=== PATIENT | male | born 1975 | race Caucasian/White ===

== ENCOUNTER 2017-06-01 00:23 | Observation (INO) | payer OTHER ==
[~2017-06-01] VITALS: Ht 172.7 cm; Wt 109.7 kg
[~2017-06-01 00:23] MED LIST: ALBU90OI INH; AMLO5 PO; AMOCLA875 PO; AMOX500 PO; ASPI325 PO; ASPI81CH PO; ATOR40TA PO; Adult Low Dose81 MG PO; Amoxicillin500 MG PO; CEPH500 PO; CIPR500 PO; CLOP75 PO; CYCL10; CYCL10 PO; DIAZ5 PO; DULO60; DULO60 PO; ERYT.5TO BOTHEYES; ERYT.5TO LEFTEYE; ERYT1OIN BOTHEYES; HYDACE10B PO; HYDACE5; HYDACE5 PO; HYDCHL12.5 PO; HYDCHL25 PO; Hydrochloroth12.5 MG PO; IBUP400 PO; IBUP600 PO; IBUP800; IBUP800 PO; KETO10 PO; LISI20 PO; LISI5 PO; Lopressor 25 mg25 MG PO; METO25 PO; MICROZIDE12.5 MG PO; NAPR500 PO; NAPR550 PO; Norco 5-325 Ta1 EACH PO; ONDA4 PO; OXYACE5T PO; PENVK500 PO; PROCODE120 PO; PROM25 PO; Percocet 5-3251 EACH PO; Prinivil10 MG PO; RXCYCL10 PO; RXNAPNA550 PO; RXOXYACE PO; RXTRAM50 PO; SULTRIDS PO; TAMS.4ER PO; TRAM50 PO; Toprol Xl25 MG PO
[2017-06-01 00:45] LABS: BASOPHILS ABSOLUTE AUTO 0.15 K/mm3 (0.00-0.23); BASOPHILS PERCENT AUTO 1 % (0-2); EOSINOPHILS PERCENT AUTO 3 % (0-6); Hematocrit 48.2 % (37.0-53.0); Hemoglobin 16.4 g/dL (13.5-17.5); Mean Corpuscular HGB 28.2 pg (26.0-34.0); Mean Corpuscular Volume 83 fL (80-100); Mean Platelet Volume 9.7 fL (9.1-12.4); Platelet Count 342 K/mm3 (150-400); RDW Coefficient Variation 13.5 % (11.7-14.2); RDW Standard Deviation 40.4 fL (35.1-46.3); Red Blood Cell Count 5.81 M/mm3 (4.30-5.90); White Blood Cell Count 14.57 K/mm3 (4.00-11.30)
[2017-06-01 00:46] LABS: IMMATURE GRAN ABSOLUTE AUTO 0.16 K/mm3 (0.00-0.10); IMMATURE GRAN PERCENT AUTO 1 % (0-1); LYMPHOCYTES ABSOLUTE AUTO 5.41 K/mm3 (0.84-5.20); LYMPHOCYTES PERCENT AUTO 37 % (21-46); MONOCYTES ABSOLUTE AUTO 0.99 K/mm3 (0.16-1.47); MONOCYTES PERCENT AUTO 7 % (4-13); NEUTROPHILS ABSOLUTE AUTO 7.36 K/mm3 (1.96-9.15); NEUTROPHILS PERCENT AUTO 51 % (41-73)
[2017-06-01 01:00] LABS: Albumin, Blood 3.7 g/dL (3.4-5.0); Albumin/Globulin Ratio 0.7 (0.8-1.8); Bilirubin, Total 0.5 mg/dL (0.1-1.0); Bun/Creatinine Ratio 13.4 (12.0-20.0); Calcium, Blood 9.1 mg/dL (8.5-10.1); Creatinine, Blood 1.57 mg/dL (0.60-1.20); Potassium, Blood 3.8 mmol/L (3.5-5.5); Total Protein, Blood 8.7 g/dL (6.4-8.2); Troponin I 0.063 ng/mL (0.000-0.040)
[2017-06-01 01:20] LABS: International Normalized Ratio 0.98; Prothrombin Time Results 10.2 Sec (9.7-11.5)
[2017-06-01 08:38] LABS: U Amphetamine Screen DETECTED; U Barbituate Screen Not Detected; U Benzodiazapine Screen Not Detected; U Buprenorphine Screen Not Detected; U Cannabinoids Screen Not Detected; U Cocaine Screen Not Detected; U Methadone Screen Not Detected; U Methamphetamine Screen DETECTED; U Opiates Screen Not Detected; U Oxycodone Screen Not Detected; U Phencyclidine Screen Not Detected; U Propoxyphene Screen Not Detected
[2017-06-01 10:57] LABS: Troponin I 4.52 ng/mL (0.000-0.040)
[2017-06-01 17:11] LABS: Hematocrit 46.2 % (37.0-53.0); Hemoglobin 15.1 g/dL (13.5-17.5); Mean Corpuscular HGB 28.1 pg (26.0-34.0); Mean Corpuscular HGB Conc 32.7 g/dL (31.5-36.5); Mean Platelet Volume 9.8 fL (9.1-12.4); Platelet Count 263 K/mm3 (150-400); RDW Coefficient Variation 13.5 % (11.7-14.2); RDW Standard Deviation 41.8 fL (35.1-46.3); Red Blood Cell Count 5.37 M/mm3 (4.30-5.90); White Blood Cell Count 11.16 K/mm3 (4.00-11.30)
[2017-06-01 17:12] LABS: Mean Corpuscular Volume 86 fL (80-100)
[2017-06-01 17:36] LABS: Alanine Aminotransfer (ALT/SGP 30 U/L (12-78); Albumin/Globulin Ratio 0.7 (0.8-1.8); Alk Phos 84 U/L (50-136); Anion Gap 10 mmol/L (6-16); Aspartate Aminotrans (AST/SGOT 50 U/L (12-37); Bilirubin, Total 0.3 mg/dL (0.1-1.0); Blood Urea Nitrogen 19 mg/dL (8-24); Bun/Creatinine Ratio 19.3 (12.0-20.0); CO2, Blood 20 mmol/L (21-32); Calcium, Blood 8.7 mg/dL (8.5-10.1); Chloride, Blood 110 mmol/L (98-108); Creatinine, Blood 0.99 mg/dL (0.60-1.20); Globulin, Blood 4.2 g/dL (2.2-4.0); Glomerular Filtration Rate >60 (60-); Glucose, Blood 108 mg/dL (70-99); Potassium, Blood 4.3 mmol/L (3.5-5.5); Sodium, Blood 140 mmol/L (136-145); Total Protein, Blood 7.2 g/dL (6.4-8.2)
[2017-06-01 17:43] LABS: BASOPHILS ABSOLUTE MAN 0.11 K/mm3 (0.00-0.23); BASOPHILS PERCENT MAN 1 % (0-2); EOSINOPHILS ABSOLUTE MAN 0.44 K/mm3 (0.00-0.68); EOSINOPHILS PERCENT MAN 4 % (0-6); LYMPHOCYTES % ATYPICAL MANUAL 5 % (0-0); LYMPHOCYTES ABSOLUTE MAN 4.24 K/mm3 (0.84-5.20); LYMPHOCYTES PERCENT MAN 33 % (21-46); MONOCYTES ABSOLUTE MAN 0.22 K/mm3 (0.16-1.47); MONOCYTES PERCENT MAN 2 % (4-13); NEUTROPHILS ABSOLUTE MAN 6.13 K/mm3 (1.96-9.15); SEG NEUTROPHILS PERCENT MAN 55 % (41-73); TOTAL CELLS COUNTED 100
[2017-06-01 18:02] LABS: Troponin I 2.72 ng/mL (0.000-0.040)
[2017-06-02 05:12] LABS: Anion Gap 7 mmol/L (6-16); Blood Urea Nitrogen 17 mg/dL (8-24); Bun/Creatinine Ratio 19.4 (12.0-20.0); CO2, Blood 23 mmol/L (21-32); Calcium, Blood 8.1 mg/dL (8.5-10.1); Chloride, Blood 108 mmol/L (98-108); Creatinine, Blood 0.88 mg/dL (0.60-1.20); Glomerular Filtration Rate >60 (60-); Glucose, Blood 106 mg/dL (70-99); Potassium, Blood 4.3 mmol/L (3.5-5.5); Sodium, Blood 138 mmol/L (136-145)
[2017-06-02] MEDS ORDERED: HYDCHL25 PO (11:25)
== END 2017-06-02 12:00 | disposition home or self-care (01) ==
LOC: ER 00:23 → ICUW 00:24
PROVIDERS: Emergency Medicine; Internal Medicine
DX: I21.4 Non-ST elevation (NSTEMI) myocardial infarction (principal); I25.10 Atherosclerotic heart disease of native coronary artery without angina pectoris; I16.0 Hypertensive urgency; I11.9 Hypertensive heart disease without heart failure; I24.9 Acute ischemic heart disease, unspecified; F15.10 Other stimulant abuse, uncomplicated; F12.10 Cannabis abuse, uncomplicated; F17.210 Nicotine dependence, cigarettes, uncomplicated; I25.5 Ischemic cardiomyopathy; N17.9 Acute kidney failure, unspecified; Z79.02 Long term (current) use of antithrombotics/antiplatelets; Z79.82 Long term (current) use of aspirin; Z79.899 Other long term (current) drug therapy; Z82.49 Family history of ischemic heart disease and other diseases of the circulatory system; Z95.5 Presence of coronary angioplasty implant and graft
CPT/HCPCS: 36415; 71045; 80048; 80053; 82550; 83880; 84484; 85025; 85610; 85730; 87081; 93005; 93010; 93306; 96361; 96365; 96375; 96376; 99285; G0378; J1644; J3010; J7030; J7040

== ENCOUNTER 2018-06-29 06:55 | Emergency (ER) | payer OTHER ==
[~2018-06-29] VITALS: Ht 177.8 cm; Wt 108.9 kg
[2018-06-29] MEDS ORDERED: Tobrex5 ML BOTHEYES (07:39)
[2018-06-29] MEDS ORDERED: Percocet 10-321 EACH PO (07:39)
== END 2018-06-29 08:22 | disposition home or self-care (01) ==
LOC: ER 06:55
DX: H16.133 Photokeratitis, bilateral (principal); I10 Essential (primary) hypertension; Z91.19 Patient's noncompliance with other medical treatment and regimen; Z79.899 Other long term (current) drug therapy; Z79.82 Long term (current) use of aspirin; I25.2 Old myocardial infarction
CPT/HCPCS: 99283

== ENCOUNTER 2019-03-10 01:11 | Inpatient (IN) | payer OTHER ==
[~2019-03-10] VITALS: Ht 177.8 cm; Wt 110.6 kg
[~2019-03-10 01:11] MED LIST changes: +Percocet 10-321 EACH PO; +Tobrex5 ML BOTHEYES
[2019-03-10 01:45] LABS: Calcium, Ionized (POC) 1.11 mmol/L (1.10-1.46); Chloride (POC) 102 mmol/L (98-108); Creatinine (POC) 1.7 mg/dL (0.8-1.3); Glucose (ISTAT POC) 162 mg/dL (70-99); Hemoglobin (POC) 17.7 g/dL (13.5-17.5); Potassium (POC) 4.8 mmol/L (3.5-5.5); Sodium (POC) 138 mmol/L (135-148); Total CO2 (POC) 26 mmol/L (21-32)
[2019-03-10 01:46] LABS: Hematocrit 51.3 % (37.0-53.0); Mean Corpuscular HGB 28.1 pg (26.0-34.0); Mean Corpuscular HGB Conc 33.1 g/dL (31.5-36.5); Mean Corpuscular Volume 85 fL (80-100); Mean Platelet Volume 9.8 fL (9.1-12.4); Platelet Count 353 K/mm3 (150-400); RDW Coefficient Variation 13.8 % (11.7-14.2); RDW Standard Deviation 42.7 fL (35.1-46.3); Red Blood Cell Count 6.06 M/mm3 (4.30-5.90); White Blood Cell Count 16.72 K/mm3 (4.00-11.30)
[2019-03-10 02:06] LABS: Alanine Aminotransfer (ALT/SGP 34 U/L (12-78); Albumin, Blood 3.6 g/dL (3.4-5.0); Albumin/Globulin Ratio 0.8 (0.8-1.8); Alk Phos 86 U/L (50-136); Anion Gap 9 mmol/L (6-16); Aspartate Aminotrans (AST/SGOT 34 U/L (12-37); Bilirubin, Total 0.3 mg/dL (0.1-1.0); Blood Urea Nitrogen 22 mg/dL (8-24); CHOL/HDL RATIO 5.4; CO2, Blood 27 mmol/L (21-32); Calcium, Blood 9.2 mg/dL (8.5-10.1); Chloride, Blood 103 mmol/L (98-108); Cholesterol 185 mg/dL (50-200); Creatinine, Blood 1.69 mg/dL (0.60-1.20); Globulin, Blood 4.3 g/dL (2.2-4.0); Glomerular Filtration Rate 48 (60-); Glucose, Blood 155 mg/dL (70-99); HDL Cholesterol 34 mg/dL (>39); LDL/HDL RATIO 3.6; Low Density Lipoprotein Chol 121 mg/dL (0-110); Magnesium, Blood 2.2 mg/dL (1.6-2.4); Potassium, Blood 4.1 mmol/L (3.5-5.5); Sodium, Blood 139 mmol/L (136-145); Total Protein, Blood 7.9 g/dL (6.4-8.2); Triglycerides 148 mg/dL (30-160); Troponin I 0.101 ng/mL (0.000-0.040); Very Low Density Lipoprot Chol 29 mg/dL (6-32)
--- NOTE | 2019-03-10 05:34 | NUR ---
PT ADMITTED TO ROOM ICU 2 FROM [facility] [employer]. HAS RIGHT RADIAL ACCESS WITH TR BAND IN PLACE. PT ARRIVES AT 0415. DOES AWAKEN TO QUESTIONS BUT FALLS BACK ASLEEP EASILY. DENIES CHEST PAIN OR PRESSURE. DR POWERS COMES TO ROOM. EKG DONE AND SHOWN TO DR POWERS. ORDERS RECEIVED. PT'S FIANCE COMES TO ROOM. IS ABLE TO ASSIST SOME WITH THE ADMISSION PROCESS. PT DEMONSTRATES A SLEEP APNEA TYPE RESPIRATION WHEREAS HE DROPS SATURATIONS TO MID 80 %'S. PLACED O2 ON AT 2 L/M TO HELP PT MAINTAIN SATRUATIONS > 90 PERCENT. PT HAS BEEN SWEATY SINCE ADMIT WHICH HE SAYS IS NORMAL AT NIGHT FOR HIM. DID REQUEST AND GET A PERSONAL FAN. PT HAS BEEN VOIDING Q.S. WILL REVIEW CHART AND PLAN OF CARE FOR THIS PT.
--- NOTE | 2019-03-10 07:25 | NUR ---
2 CC DEFLATED FROM TR BAND, NO BLEEDING, HEMATOMA.
--- NOTE | 2019-03-10 07:30 | NUR ---
START OF SHIFT NOTE: RECEIVED REPORT FROM COLETTE RN, ASSUMED CARE, PATIENT IS DROWSY BUT AROUSEABLE, ALERT AND ORIENTED, LUNG SOUNDS DIMINISHED, SR, SBP'S SLIGHTLY LOW IN 90'S, DENIES CHEST PAIN/PRESSURE, REPORTS NO N/V, AFEBRILE, PATIENT ON NITRO GTT DECREASED FROM 40 TO 30 MCG AT THIS TIME, PER DR. POWERS KEEP MAP BETWEEN 70-100, RIGHT GROIN CENTRAL LINE, RIGHT RADIAL ACCESS SITE, TR BAND IN PLACE, 4 CC'S DEFLATED WITH 9 CC'S REMAINING, NO BLEEDING, HEMATOMA, BRUISING NOTED, PATIENT IS ASKING FOR FOOD, FIANCE AT BEDSIDE, CALL LIGHT IN REACH, WILL CONTINUE TO MONITOR.
--- NOTE | 2019-03-10 08:00 | NUR ---
2 CC DFLATED FROM TR BAND, NO BLEEDING, HEMATOMA, 7 CC OF AIR REMAINING.
--- NOTE | 2019-03-10 08:45 | NUR ---
2 CC DEFLATED FROM TR BAND, NO BLEEDIN, HEMATOMA, 5 CC REMAINING.
--- NOTE | 2019-03-10 08:55 | NUR ---
DR. OROURKE IN TO SEE PATIENT, C/O SLIGHTLY RASPY THROAT, TOOK AM PILLS WITHOUT ANY PROBLEM SWALLOWING, CONTINUES TO BE DROWSY, TR BAND DEFLATED WITH 5 CC'S REMAINING, FAMILY AT BEDSIDE, CALL LIGHT IN REACH, WILL CONTINUE TO MONITOR.
--- NOTE | 2019-03-10 09:20 | NUR ---
IMAGING IN ROOM TO DO ORDERED ECHO, FAMILY AT BEDSIDE, PATIENT DOZING DURING PROCEDURE, CALL LIGHT IN REACH, WILL CONTINUE TO MONITOR.
--- NOTE | 2019-03-10 09:30 | NUR ---
CALLED DR. POWERS AND NOTIFIED ABOUT DRITICAL LAB VALUE, ALSO PROVIDED UPDATE ON PATIENT CONDITION, NO NEW ORDERS RECEIVED.
--- NOTE | 2019-03-10 09:45 | NUR ---
CC DEFLATE FROM TR BAND, 2 CC'S AIR REMAINING, NO BLEEDING, HEMATOMA.
--- NOTE | 2019-03-10 10:16 | NUR ---
TR BAND COMPLETELY DEFLATED, WILL LEAVE IN PLACE FOR ONE HOUR AN THEN REMOVE, NO BLEEDING OR HEMATOMA NOTED.
--- NOTE | 2019-03-10 11:21 | NUR ---
TR BAND REMOVED, NO BLEEDING, HEMATOMA, TENDERNESS NOTED, ARMBOARD IN PLACE, PATIENT CONTINUES TO DOZE ON AND OFF, FINACE AT BEDSIDE, CALL LIGHT IN REACH, WILL CONTINUE TO MONITOR.
--- NOTE | 2019-03-10 12:06 | NUR ---
RIGHT RADIAL ACCESS SITE COVERED WITH OPSITE, NO BLEEDING, HEMATOMA NOTED, NO TENDERNESS ON PALPATION, FIANCE AT BEDSIDE, CALL LIGHT IN REACH, WILL CONTINUE TO MONITOR.
--- NOTE | 2019-03-10 14:40 | NUR ---
CALLED DR. POWERS, PATIENT C/O CHEST PAIN/PRESSURE 08/09 " IF SOMEONE IS SITTING ON MY CHEST", ORDERED EKG AND INCREASED NITRO GTT UP TO 40 MCG.
--- NOTE | 2019-03-10 15:13 | NUR ---
DR. POWERS CALLED WITH RESULTS OF EKG, NORMAL SINUS RHYTHM, NO NEW ORDERS RECEIVED, DR. POWERS WILL STOP BY AFTER CLINIC, MAY START PATIENT ON BETA INGE THIS EVENING.
--- NOTE | 2019-03-10 16:53 | NUR ---
DR. POWERS IN TO SEE PATIENT, NEW ORDERS RECEIVED.
--- NOTE | 2019-03-10 17:55 | NUR ---
SHIFT SUMMARY NOTE: PATIENT CONTINUES ON NITRO DRIP AT NOW AT 40 MCG, ALSO WAS STARTED ON HEPARIN GTT AT 13 UNITS PER PHARMACY, WITH 6000 UNITS OF BOLUS, PATIENT C/O ON AND OFF THROUGHOUT THE DAY OF CHEST PAIN/PRESSURE, REPEAT EKG DONE, LOOKS BETTER, DR. POWERS AWARE, RIGHT RADIAL ACCESS SITE WITH OPSITE, NO BLEEDING, HEMATOMA, TENDERNESS, ARMBOARD IN PLACE, PATIENT IS MORE ALERT, ON 2L NC BUT NOT COMPLIANT WITH IT, REMOVES NASAL CANNULA WHEN PLACED IN NOSTRILS, LUNG SOUNDS DIMINISHED, SR/ST WITH BP'S IN LOW 100'S, RECEIVED TYLENOL 650 MG FOR HEADACHE D/T NITRO, USES URINAL, VOIDED ONCE ON THIS SHIFT ABOUT 475 CC'S, CENTRAL LINE IN RIGHT GROIN, VERY POSITIONAL FOR LAB DRAWS, PATIENT ATE SOME OF FHIS MEALS, C/O A SWOLLEN THROAT EARLIER THIS AM BUT WAS ABLE TO SWALLOW HIS PILLS WITHOUT ANY PROBLEMS, WELL HIS FOOD, ECHO WAS DONE THIS AM AND DR. POWERS NOTIFIED PATIENT AND FAMILY ABOUT RESULTS, FOR DETAILS SEE SHIFT ASSESSMENT DOCUMENTATION AND NURSES NOTES, CALL LIGHT IN REACH, WILL CONTINUE TO MONITOR AND GIVE REPORT TO ONCOMING NITROGLYCERIN DISTRIBUTOR.
--- NOTE | 2019-03-10 18:25 | NUR ---
Pt's fiance, Lena, called me into room. She and I met on previous hospitalizations. Samuel was restless in bed. Lena admits , "he's been using meth." She is also quite fearful for him. Lena is very appreciaitve of emotional support and prayer. I provided these and assurance of excellent care and attention by clinicians and nursing staff. Encouraged self-care. Pt has "insisted" she say at bedisde, but she is clearly physicall/emotionally exhausted. Advised she must care for herself while we take care of Samuel. She may go home tonight. Bar Host/Hostess services will remain available.
[2019-03-10 19:21] LABS: International Normalized Ratio 3.18; Prothrombin Time Results 31.9 Sec (9.7-11.5)
--- NOTE | 2019-03-10 20:16 | NUR ---
ASSUMED CARE: AT APPROX 1900 AFTER REPORT FROM NIKO SANDY. PATIENT RESTING COMFORTABLY WITH FAMILY AT BEDSIDE. PATIENT HEPARIN DRIP VERIFIED WITH NIKO RN, RUNNING AT 13U/KG/HR WITH 88KG BASE WEIGHT PER PHARMACY. NITOR DRIP VERIFIED WITH NIKO RN, RUNNING AT 40MCG/MIN WITH A MAP OF 89. VSS, PATIENT STABLE ON RA AT 96%. RIGHT RADIAL SITE RECOVERED AT APPROX 1130 03/10/2019 PER NIKO SANDY; SITE IS C/D/I WITH NO SIGN OF BLEEDING, HEMATOMA OR INFECTION. ALL SENSATIONS INTACT, CAPILLARY REFILL <3 SECOUNDS AND MOVEMENT/STRENGTH INTACT AND ARMBOARD IN PLACE. RIGHT GROIN SITE FOR CENTRAL LINE HAS SOME OLD CRUSTED BLOOD WITH A SCANT AMOUNT OF FRESH BLOOD AT INSERTION SITE. OCCLUSIVE DRESSING INTACT. NO SIGN OF HEMATOMA OR INFECTION NOTED. ALL SENSATIONS INTACT/BASELINE WITH DISTAL CAPILLARY REFILL <3 SECOUNDS, PLAN IS TO CHANGE CENTRAL LINE DRESSING EARLY THIS SHIFT.
--- NOTE | 2019-03-10 20:35 | NUR ---
CLARIFIED NITRO DRIP PERAMETERS AND BETA INGE ORDERS WITH DR POWERS, NURSE NOTIFY ORDERED AND PLACED
[2019-03-11 03:33] LABS: Hematocrit 42.8 % (37.0-53.0); Hemoglobin 14.1 g/dL (13.5-17.5); Mean Corpuscular HGB Conc 32.9 g/dL (31.5-36.5); Mean Corpuscular Volume 85 fL (80-100); Mean Platelet Volume 9.9 fL (9.1-12.4); Platelet Count 288 K/mm3 (150-400); RDW Standard Deviation 43.2 fL (35.1-46.3); Red Blood Cell Count 5.04 M/mm3 (4.30-5.90); White Blood Cell Count 15.11 K/mm3 (4.00-11.30)
--- NOTE | 2019-03-11 03:40 | NUR ---
SHIFT SUMMARY: PATIENT VSS THIS SHIFT, MAP RANGING BETWEEN 79 AND 100. PATIENT C/O BASELINE BILATERAL HAND PAIN RADIATING TO ELBOWS, PATIENT STATES HE HAS CARPEL TUNNEL IN BOTH WRISTS. WARM BLANKETS HELPED PAIN. PATIENT CENTRAL LINE DRESSING CHANGED, SITE CLEANED USING STERILE PROCEEDURE, SEE CATHETER MANAGEMENT FOR DETAILS. RIGHT RADIAL SITE REMAINED C/D/I AND INTACT ALL SHIFT, PATIENT COMPLIANT WITH USING THE ARMBOARD. PATIENT ABLE TO GET TO BSC WITH AT LEAST ONE PERSON ASSIST, NO LIGHTHEADED SENSATIONS OR INCREASED WEAKNESS WITH MOVEMENT. NO OTHER ISSUES NOTED, CALL LIGHT WITHIN REACH AND USED APPROPRIATLY, BED LOW AND LOCKED, FAMILY AT BEDSIDE ALL SHIFT.
[2019-03-11 04:02] LABS: Anion Gap 7 mmol/L (6-16); Blood Urea Nitrogen 21 mg/dL (8-24); Bun/Creatinine Ratio 17.1 (12.0-20.0); CO2, Blood 28 mmol/L (21-32); Calcium, Blood 8.8 mg/dL (8.5-10.1); Chloride, Blood 103 mmol/L (98-108); Creatinine, Blood 1.23 mg/dL (0.60-1.20); Glomerular Filtration Rate >60 (60-); Glucose, Blood 115 mg/dL (70-99); Potassium, Blood 3.9 mmol/L (3.5-5.5); Sodium, Blood 138 mmol/L (136-145)
--- NOTE | 2019-03-11 07:15 | NUR ---
BEGINNING OF SHIFT Assumed care at 0700. Bedside report received from Geovanna SANDY and Wes RN. Pt alert. Significant other at bedside. Pt on room air. Lungs clear on auscultation. Pt denies chest pain. Pt reports headache and pain to left wrist that he states is typical for him and he attributes it to "carpal tunnel". Pt on 40 mcg/min nitroglycerin. Denies chest pain. Pt on heparin per orders. Bed in lowest position. Call light in reach. Pt denies need at this time.
--- NOTE | 2019-03-11 08:43 | NUR ---
UPDATE Nitroglycerin drip currently at 25 mcg/min. Pt denies CP. MAP remains between 70 and 100. Will continue to reassess.
--- NOTE | 2019-03-11 09:45 | NUR ---
DR OROURKE IN TO SEE PATIENT Discussed pt's carpal tunnel pain. New orders received. Plan to update Dr Orourke after Dr Ortega rounds on patient.
--- NOTE | 2019-03-11 10:00 | NUR ---
DR POWERS IN TO SEE PT Plan of care discussed. Provider states heparin drip to be discontinued. Provider also states to continue titrating nitroglycerin down. Provider states that if pt does well, he may transfer to PCU later in the day.
--- NOTE | 2019-03-11 12:23 | NUR ---
CALL PLACED TO DR OROURKE Pt has apneic periods while sleeping, lasting 10-15 seconds. SpO2 does not drop below 90%. Mild heart rate varibility noted. Pt then hyperventilates for 5-7 seconds. Pt's s/o vebalized concern about pt's breathing pattern. Education provided. Pt's s/o anxious and not receptive to education. She also states that pt's heart "flatlined". Educated about HR variability. No events on heart monitor this shift. Pt's s/o states pt is short of breath while awake. This RN awakens pt to assess. Pt states he feels short of breath laying down but does not feel short of breath when he is up and moving around. This RN elevates pt's HOB. Lungs auscultated, clear t/o. Will continue to reassess. Call placed to Dr Orourke to update. Provider stated importance of pt following up with pt's primary care provider.
--- NOTE | 2019-03-11 13:39 | NUR ---
UPDATE Pt states he is feeling short of breath and diaphoretic. On assessment pt, is diaphoretic. He denies chest pain. Pt assisted up to chair. Pt states that while moving around and sitting up in chair, he is no longer short of breath. Pt states he would like to take a shower.
--- NOTE | 2019-03-11 14:37 | NUR ---
CALL PLACED TO DR POWERS Updated provider that pt is off nitroglycerin drip. Discussed BPs. Discussed pt's dyspnea. New orders given. Pt is PCU status.
--- NOTE | 2019-03-11 18:09 | NUR ---
SUMMARY Pt has been off nitroglycerin drip since noon. VSS. Pt has been OOB several times this shift to use toilet and sit in chair. Pt has shortness of breath while laying in bed but not with activity. Pt reports shortness of breath has improved after administration of lasix. Pt has not had any chest pain this shift. Pt had headache that resolved with tylenol and cessation of nitroglycerin drip. Pt had pain to left wrist, which he attributes to carpal tunnel; as he has experienced this pain before. This was resolved after BP cuff was moved to right arm and analgesic cream was applied to left wrist. Will continue to closely monitor until care handoff and bedside report with oncoming RN.
--- NOTE | 2019-03-11 19:32 | NUR ---
BEDSIDE REPORT GIVEN TO SONIDO SANDY
--- NOTE | 2019-03-11 20:14 | NUR ---
SHIFT SUMMARY REPORT CALLED TO DU HERNANDEZ IN PCU. PATIENT TRANSFERRED VIA HOSPITAL BED TO PCU-5.
--- NOTE | 2019-03-11 23:26 | NUR ---
PT UPDATE CAN REPORTS TO RN THAT PT IS NAUSEOUS. RN TO ROOM TO EVELUATE PT. PT APPEARS TO BE SLEEPING. PT WAKES TO VEBRAL AFTER 3 ATTEMPTS TO WAKE PT. VITALS TAKEN, WNL. THIS RN ASKED PT IF HE WOULD LIEK TO WEAR SOEM OXYGEN WHILE SLEEPING D/T WHITNESSED SHORT APNIC PERIODS. PT REFUSED. PT ALSO ASKED IF HE WANTED SOMETHING FOR NAUSEA. PT ALSO REFUSED TO ANSWER. PT ASKED AGAIN, PT REFUSED TO ANSWER. PT EDUCATED THAT HE COULD USE CALL LIGHT TO REQUEST MEDICATIONS FOR NAUSEA SHOULD HE CHANGE HIS MIND. PT NOT IN ROOM AT THSI TIME.
[2019-03-12 04:03] LABS: BASOPHILS ABSOLUTE AUTO 0.14 K/mm3 (0.00-0.23); BASOPHILS PERCENT AUTO 1 % (0-2); EOSINOPHILS ABSOLUTE AUTO 0.46 K/mm3 (0.00-0.68); EOSINOPHILS PERCENT AUTO 4 % (0-6); Hemoglobin 14.8 g/dL (13.5-17.5); IMMATURE GRAN ABSOLUTE AUTO 0.35 K/mm3 (0.00-0.10); IMMATURE GRAN PERCENT AUTO 3 % (0-1); LYMPHOCYTES ABSOLUTE AUTO 3.24 K/mm3 (0.84-5.20); LYMPHOCYTES PERCENT AUTO 26 % (21-46); MONOCYTES ABSOLUTE AUTO 0.92 K/mm3 (0.16-1.47); MONOCYTES PERCENT AUTO 7 % (4-13); Mean Corpuscular HGB 27.9 pg (26.0-34.0); Mean Corpuscular HGB Conc 32.2 g/dL (31.5-36.5); Mean Corpuscular Volume 87 fL (80-100); Mean Platelet Volume 10.2 fL (9.1-12.4); NEUTROPHILS ABSOLUTE AUTO 7.47 K/mm3 (1.96-9.15); NEUTROPHILS PERCENT AUTO 59 % (41-73); Platelet Count 288 K/mm3 (150-400); RDW Coefficient Variation 14.2 % (11.7-14.2); RDW Standard Deviation 45.1 fL (35.1-46.3); White Blood Cell Count 12.58 K/mm3 (4.00-11.30)
[2019-03-12 04:20] LABS: Alanine Aminotransfer (ALT/SGP 72 U/L (12-78); Albumin, Blood 3.2 g/dL (3.4-5.0); Albumin/Globulin Ratio 0.7 (0.8-1.8); Alk Phos 82 U/L (50-136); Anion Gap 5 mmol/L (6-16); Aspartate Aminotrans (AST/SGOT 237 U/L (12-37); Bilirubin, Total 0.5 mg/dL (0.1-1.0); Blood Urea Nitrogen 17 mg/dL (8-24); Bun/Creatinine Ratio 13.8 (12.0-20.0); CO2, Blood 28 mmol/L (21-32); Calcium, Blood 9.1 mg/dL (8.5-10.1); Chloride, Blood 106 mmol/L (98-108); Creatinine, Blood 1.23 mg/dL (0.60-1.20); Globulin, Blood 4.4 g/dL (2.2-4.0); Glomerular Filtration Rate >60 (60-); Glucose, Blood 106 mg/dL (70-99); Magnesium, Blood 2.3 mg/dL (1.6-2.4); Potassium, Blood 4.1 mmol/L (3.5-5.5); Sodium, Blood 139 mmol/L (136-145); Total Protein, Blood 7.6 g/dL (6.4-8.2)
--- NOTE | 2019-03-12 05:28 | NUR ---
SHIFT SUMMARY PT SLEEPING IN ROOM COMFORTABLY AT THIS TIME W/ SPOUSE AT BEDSIDE. NO ACUTE CHANGES IN STATUS T/O NIGHT. PT DID AWAKEN SEVERAL TIMES DURING NIGHT GASPING FOR BREATH D/T APNIC MOMENTS. PT OFFERED NC WHILE SLEEPING TO ASSIST WITH BREATHING. PT REFUSED. PT ALSO REFUSED ANYTHIGN FOR NAUSEA EARLIER DURING SHIFT. BEDSIDE FAN PROVIDED. RESP EVEN UNLABORED AT REST WHILE AWAKE W/ SATS >92% ON RA. PT DENIES ANY CP. ANGIO ACCESS SITE TO RW WNL, NO HEMATOMA NOTED. CENTRAL LINE TO R GROIN REMAINS IN PLACE WNL. DENIES OTHER NEEDS. CALL LIGHT IN REACH. PT REFUSED BEDSIDE REPORT IN AM.
[2019-03-12] MEDS ORDERED: AMLO10 PO (09:58)
[2019-03-12] MEDS ORDERED: Aspirin EC81 MG PO (09:58)
[2019-03-12] MEDS ORDERED: LIPITOR80 MG PO (09:59)
[2019-03-12] MEDS ORDERED: FURO40 PO (09:59)
[2019-03-12] MEDS ORDERED: LISI5 PO (09:59)
[2019-03-12] MEDS ORDERED: METO25ER PO (10:00)
[2019-03-12] MEDS ORDERED: TICA90TA PO (10:01)
[2019-03-12] MEDS ORDERED: PANT20 PO (10:01)
--- NOTE | 2019-03-12 10:42 | NUR ---
PT AMBULATED TO BATHROOM WITH SLOW EVEN STEADY GAIT, NO ACTIVE BLEEDING NOTED FROM CENTRAL LINE SITE POST D/C. CHG TEGADERM REAMINS IN PLACE OVER CENTRAL LINE SITE
--- NOTE | 2019-03-12 11:55 | NUR ---
AFTER BEING SET UP FOR SHOWER PT IS NOW REFUSING TO SHWER OR GET DRESSED BEFPRE HIS S/O ARRIVES DESPITE EDUCATION THAT S/O IS ON HER AWAY AND EXPECTING HIM TO BE READY, PT REMAINS REFUSANT TO GET DRESSED
--- NOTE | 2019-03-12 12:25 | NUR ---
PT'S S/O IS THOROUGHLY EDUCATED ABOUT D/C INSTRUCTIONS AND POSSIBLE MEDICATION SIDE EFFECTS
--- NOTE | 2019-03-12 13:20 | NUR ---
PT AND S/O THOROOUGHLY EDUCATED ABOUT DC INSTRUCTIONS AND POSSIBLE SIDE EFFECTS OF NEW MEDICATIONS. SO AND PT EXPRESSED UNDERSTANDING OF DC TEACHING, DENY FURTHER NEEDS. PT WHEELED TO CAR BY THIS RN PT PROVIDED WITH ALL BELONGINGS AT TIME OF DISCHARGE
== END 2019-03-12 12:47 | disposition home or self-care (01) | DRG 247 ==
LOC: ER 01:11 → ICUE 01:36 → ICUW 01:36 → ICUE 02:14 → PCU 03-11 20:12
PROVIDERS: Emergency Medicine; Internal Medicine; ADMIT Internal Medicine Interventional Cardiology
PROC: 027034Z Dilation of Coronary Artery, One Artery with Drug-eluting Intraluminal Device, Percutaneous Approach (ICD-10-PCS; principal; 2019-03-10)
PROC: 4A023N7 Measurement of Cardiac Sampling and Pressure, Left Heart, Percutaneous Approach (ICD-10-PCS; 2019-03-10)
PROC: B2111ZZ Fluoroscopy of Multiple Coronary Arteries using Low Osmolar Contrast (ICD-10-PCS; 2019-03-10)
PROC: B240ZZ3 Ultrasonography of Single Coronary Artery, Intravascular (ICD-10-PCS; 2019-03-10)
PROC: 06HY33Z Insertion of Infusion Device into Lower Vein, Percutaneous Approach (ICD-10-PCS; 2019-03-10)
DX: I21.3 ST elevation (STEMI) myocardial infarction of unspecified site (principal); I16.1 Hypertensive emergency; I50.22 Chronic systolic (congestive) heart failure; N17.9 Acute kidney failure, unspecified; I25.10 Atherosclerotic heart disease of native coronary artery without angina pectoris; I25.2 Old myocardial infarction; F17.210 Nicotine dependence, cigarettes, uncomplicated; I25.5 Ischemic cardiomyopathy; I11.0 Hypertensive heart disease with heart failure; F15.120 Other stimulant abuse with intoxication, uncomplicated; Z79.82 Long term (current) use of aspirin
CPT/HCPCS: 36415; 36556; 76937; 80047; 80048; 80053; 80061; 83735; 83880; 84484; 85014; 85025; 85027; 85347; 85610; 85651; 85730; 92978; 93005; 93010; 93306; 93458; 96374; 96375; 99152; 99153; 99285-25; A9270; C1725; C1751; C1753; C1769; C1874; C1887; C1894; C9113; C9606; J1644; J1650; J1940; J2060; J2250; J2270; J3010; J7030; Q9967

== ENCOUNTER 2019-03-14 08:40 | Observation (INO) | payer OTHER ==
[~2019-03-14] VITALS: Ht 177.8 cm; Wt 108.9 kg
[~2019-03-14 08:40] MED LIST changes: +AMLO10 PO; +Aspirin EC81 MG PO; +FURO40 PO; +LIPITOR80 MG PO; +METO25ER PO; +PANT20 PO; +TICA90TA PO
[2019-03-14 09:15] LABS: BASOPHILS PERCENT AUTO 1 % (0-2); EOSINOPHILS ABSOLUTE AUTO 0.63 K/mm3 (0.00-0.68); EOSINOPHILS PERCENT AUTO 5 % (0-6); Hematocrit 44.7 % (37.0-53.0); Hemoglobin 14.7 g/dL (13.5-17.5); IMMATURE GRAN ABSOLUTE AUTO 0.24 K/mm3 (0.00-0.10); IMMATURE GRAN PERCENT AUTO 2 % (0-1); LYMPHOCYTES ABSOLUTE AUTO 3.67 K/mm3 (0.84-5.20); LYMPHOCYTES PERCENT AUTO 26 % (21-46); MONOCYTES ABSOLUTE AUTO 0.91 K/mm3 (0.16-1.47); MONOCYTES PERCENT AUTO 7 % (4-13); Mean Corpuscular HGB 28.1 pg (26.0-34.0); Mean Corpuscular HGB Conc 32.9 g/dL (31.5-36.5); Mean Corpuscular Volume 86 fL (80-100); Mean Platelet Volume 10.2 fL (9.1-12.4); NEUTROPHILS ABSOLUTE AUTO 8.36 K/mm3 (1.96-9.15); NEUTROPHILS PERCENT AUTO 60 % (41-73); Platelet Count 316 K/mm3 (150-400); RDW Coefficient Variation 13.7 % (11.7-14.2); RDW Standard Deviation 42.7 fL (35.1-46.3); Red Blood Cell Count 5.23 M/mm3 (4.30-5.90); White Blood Cell Count 13.91 K/mm3 (4.00-11.30)
[2019-03-14 09:32] LABS: Alanine Aminotransfer (ALT/SGP 89 U/L (12-78); Albumin, Blood 3.2 g/dL (3.4-5.0); Albumin/Globulin Ratio 0.8 (0.8-1.8); Alk Phos 82 U/L (50-136); Anion Gap 7 mmol/L (6-16); Aspartate Aminotrans (AST/SGOT 94 U/L (12-37); Bilirubin, Total 0.3 mg/dL (0.1-1.0); Blood Urea Nitrogen 15 mg/dL (8-24); Bun/Creatinine Ratio 15.6 (12.0-20.0); CO2, Blood 24 mmol/L (21-32); Calcium, Blood 8.8 mg/dL (8.5-10.1); Chloride, Blood 109 mmol/L (98-108); Creatinine, Blood 0.96 mg/dL (0.60-1.20); Globulin, Blood 4.2 g/dL (2.2-4.0); Glomerular Filtration Rate >60 (60-); Glucose, Blood 104 mg/dL (70-99); Potassium, Blood 4.5 mmol/L (3.5-5.5); Sodium, Blood 140 mmol/L (136-145); Total Protein, Blood 7.4 g/dL (6.4-8.2)
[2019-03-14] MEDS ORDERED: CLOP75 PO ×2 (12:09→12:38)
--- NOTE | 2019-03-14 13:03 | NUR ---
Echocardiogram completed.
--- NOTE | 2019-03-14 14:43 | NUR ---
PATIENT GAVE THIS STUDENT NURSE PERMISSION TO PROVIDE CARE ON MAR 15, 2019 IN THE AFTERNOON.
[2019-03-15 02:36] LABS: Source, Urine Clean Catch
[2019-03-15 02:39] LABS: Appearance, Urine Clear (Clear); Bilirubin, Urine Neg (Neg); Blood, Urine Neg (Neg); Color, Urine Yellow (P-Yellow); Glucose Qualitative, Urine Neg (Neg); Ketones, Urine Neg (Neg); Leukocyte Esterase, Urine Neg (Neg); Nitrite, Urine Neg (Neg); Protein, Urine Neg (Neg); Specific Gravity, Urine 1.025 (1.003-1.022); Urobilinogen, Urine NORM (Normal)
[2019-03-15 02:50] LABS: U Amphetamine Screen DETECTED; U Barbituate Screen Not Detected; U Benzodiazapine Screen DETECTED; U Buprenorphine Screen Not Detected; U Cannabinoids Screen Not Detected; U Cocaine Screen Not Detected; U Methadone Screen Not Detected; U Methamphetamine Screen Not Detected; U Opiates Screen Not Detected; U Oxycodone Screen Not Detected; U Phencyclidine Screen Not Detected; U Propoxyphene Screen Not Detected
[2019-03-15 04:59] LABS: BASOPHILS ABSOLUTE AUTO 0.11 K/mm3 (0.00-0.23); BASOPHILS PERCENT AUTO 1 % (0-2); EOSINOPHILS ABSOLUTE AUTO 0.58 K/mm3 (0.00-0.68); EOSINOPHILS PERCENT AUTO 4 % (0-6); Hematocrit 44.8 % (37.0-53.0); Hemoglobin 14.7 g/dL (13.5-17.5); IMMATURE GRAN ABSOLUTE AUTO 0.17 K/mm3 (0.00-0.10); IMMATURE GRAN PERCENT AUTO 1 % (0-1); LYMPHOCYTES ABSOLUTE AUTO 3.59 K/mm3 (0.84-5.20); LYMPHOCYTES PERCENT AUTO 27 % (21-46); MONOCYTES ABSOLUTE AUTO 1.23 K/mm3 (0.16-1.47); MONOCYTES PERCENT AUTO 9 % (4-13); Mean Corpuscular HGB 28.1 pg (26.0-34.0); Mean Corpuscular HGB Conc 32.8 g/dL (31.5-36.5); Mean Corpuscular Volume 86 fL (80-100); Mean Platelet Volume 10.5 fL (9.1-12.4); NEUTROPHILS ABSOLUTE AUTO 7.51 K/mm3 (1.96-9.15); NEUTROPHILS PERCENT AUTO 57 % (41-73); Platelet Count 319 K/mm3 (150-400); RDW Coefficient Variation 13.5 % (11.7-14.2); RDW Standard Deviation 42.1 fL (35.1-46.3); Red Blood Cell Count 5.24 M/mm3 (4.30-5.90); White Blood Cell Count 13.19 K/mm3 (4.00-11.30)
--- NOTE | 2019-03-15 05:18 | NUR ---
SHIFT SUMMARY: A/OX4. RESPONDING QUICKLY AND APPROPRIATELY TO VERBAL STIMILI. REPORTING SOME ANXIETY OVERNIGHT. GF IN ROOM WITH PT THROUGH THE NIGHT. STATES HE CAN WAIT UNTIL MORNING ATARAX AND HAS BEEN SLEEPING INTERMITTENTLY. PT DENIES PAIN. DENIES CHEST PAIN AND SOB. HAS BEEN UP INDEPENDENTLY IN ROOM. BED LOW, CALL BUTTON IN REACH.
[2019-03-15 05:35] LABS: Alanine Aminotransfer (ALT/SGP 75 U/L (12-78); Albumin, Blood 3.1 g/dL (3.4-5.0); Albumin/Globulin Ratio 0.7 (0.8-1.8); Alk Phos 84 U/L (50-136); Anion Gap 8 mmol/L (6-16); Aspartate Aminotrans (AST/SGOT 62 U/L (12-37); Bilirubin, Total 0.3 mg/dL (0.1-1.0); Blood Urea Nitrogen 18 mg/dL (8-24); Bun/Creatinine Ratio 16.1 (12.0-20.0); CO2, Blood 24 mmol/L (21-32); Calcium, Blood 9.1 mg/dL (8.5-10.1); Chloride, Blood 106 mmol/L (98-108); Creatinine, Blood 1.12 mg/dL (0.60-1.20); Globulin, Blood 4.3 g/dL (2.2-4.0); Glomerular Filtration Rate >60 (60-); Glucose, Blood 98 mg/dL (70-99); Potassium, Blood 4.2 mmol/L (3.5-5.5); Sodium, Blood 138 mmol/L (136-145); Total Protein, Blood 7.4 g/dL (6.4-8.2)
[2019-03-15] MEDS ORDERED: HYDHCL25 PO (14:38)
--- NOTE | 2019-03-15 15:04 | NUR ---
SUMMARY PT DISCHARGED TO HOME WITH SIGNIFICANT OTHER, PT VERBALIZED UNDERSTANDING OF DISCHARGE INSTRUCTIONS REGARDING FOLLOW UP AND MEDICATIONS, PT TAKEN OUT SAFELY VIA WHEELCHAIR WITH STAFF
== END 2019-03-15 14:47 | disposition home or self-care (01) ==
LOC: ER 08:40 → MEDS 08:41
PROVIDERS: Physician Assistant; ADMIT Internal Medicine
DX: F41.9 Anxiety disorder, unspecified (principal); R06.02 Shortness of breath; R06.00 Dyspnea, unspecified; I21.3 ST elevation (STEMI) myocardial infarction of unspecified site; F41.0 Panic disorder [episodic paroxysmal anxiety]; F15.10 Other stimulant abuse, uncomplicated; I11.0 Hypertensive heart disease with heart failure; I50.22 Chronic systolic (congestive) heart failure; I25.10 Atherosclerotic heart disease of native coronary artery without angina pectoris; G47.33 Obstructive sleep apnea (adult) (pediatric); R79.89 Other specified abnormal findings of blood chemistry; Z95.5 Presence of coronary angioplasty implant and graft; Z87.891 Personal history of nicotine dependence; Z79.82 Long term (current) use of aspirin; Z79.02 Long term (current) use of antithrombotics/antiplatelets; Z79.899 Other long term (current) drug therapy
CPT/HCPCS: 36415; 71046; 80053; 81003; 83880; 84484; 85025; 93005; 93010; 93308; 96372; 96374; 96375; 99285-25; C9113; G0378; J1650; J1940; J2060

== ENCOUNTER 2020-05-09 04:16 | Emergency (ER) | payer OTHER ==
[~2020-05-09 04:16] MED LIST changes: +HYDHCL25 PO
[2020-05-09] MEDS ORDERED: Floxin10 ML LEFTEYE (08:06)
== END 2020-05-09 08:22 | disposition home or self-care (01) ==
LOC: ER 04:16
DX: T15.92XA Foreign body on external eye, part unspecified, left eye, initial encounter (principal); Z79.82 Long term (current) use of aspirin; Z79.899 Other long term (current) drug therapy; Z79.02 Long term (current) use of antithrombotics/antiplatelets; W45.8XXA Other foreign body or object entering through skin, initial encounter
CPT/HCPCS: 65222; 70480; 90471; 99283-25; A9270

== ENCOUNTER 2020-07-05 05:48 | Emergency (ER) | payer OTHER ==
[~2020-07-05] VITALS: Ht 177.8 cm; Wt 108.9 kg
[~2020-07-05 05:48] MED LIST changes: +Floxin10 ML LEFTEYE
[2020-07-05 06:10] LABS: Calcium, Ionized (POC) 1.06 mmol/L (1.10-1.46); Chloride (POC) 107 mmol/L (98-108); Creatinine (POC) 1.8 mg/dL (0.8-1.3); Glucose (ISTAT POC) 117 mg/dL (70-99); Hemoglobin (POC) 14.6 g/dL (13.5-17.5); Potassium (POC) 3.5 mmol/L (3.5-5.5); Sodium (POC) 141 mmol/L (135-148); Total CO2 (POC) 24 mmol/L (21-32)
[2020-07-05 06:26] LABS: BASOPHILS ABSOLUTE AUTO 0.11 K/mm3 (0.00-0.23); BASOPHILS PERCENT AUTO 1 % (0-2); EOSINOPHILS ABSOLUTE AUTO 0.49 K/mm3 (0.00-0.68); EOSINOPHILS PERCENT AUTO 5 % (0-6); Hematocrit 45.5 % (37.0-53.0); Hemoglobin 15.5 g/dL (13.5-17.5); Mean Corpuscular HGB Conc 34.1 g/dL (31.5-36.5); Mean Corpuscular Volume 88 fL (80-100); Mean Platelet Volume 9.6 fL (9.1-12.4); Platelet Count 291 K/mm3 (150-400); RDW Coefficient Variation 13.3 % (11.7-14.2); RDW Standard Deviation 43.4 fL (35.1-46.3); Red Blood Cell Count 5.17 M/mm3 (4.30-5.90); White Blood Cell Count 10.63 K/mm3 (4.00-11.30)
[2020-07-05 06:28] LABS: IMMATURE GRAN ABSOLUTE AUTO 0.11 K/mm3 (0.00-0.10); IMMATURE GRAN PERCENT AUTO 1 % (0-1); LYMPHOCYTES ABSOLUTE AUTO 4.29 K/mm3 (0.84-5.20); LYMPHOCYTES PERCENT AUTO 40 % (21-46); MONOCYTES ABSOLUTE AUTO 1.29 K/mm3 (0.16-1.47); MONOCYTES PERCENT AUTO 12 % (4-13); NEUTROPHILS ABSOLUTE AUTO 4.34 K/mm3 (1.96-9.15); NEUTROPHILS PERCENT AUTO 41 % (41-73)
[2020-07-05 06:32] LABS: Albumin, Blood 3.3 g/dL (3.4-5.0); Albumin/Globulin Ratio 0.9 (0.8-1.8); Bilirubin, Total 0.4 mg/dL (0.1-1.0); Bun/Creatinine Ratio 12.7 (12.0-20.0); Calcium, Blood 8.3 mg/dL (8.5-10.1); Creatinine, Blood 1.66 mg/dL (0.60-1.20); Globulin, Blood 3.8 g/dL (2.2-4.0); Potassium, Blood 3.6 mmol/L (3.5-5.5); Total Protein, Blood 7.1 g/dL (6.4-8.2); Troponin I 0.033 ng/mL (0.000-0.040)
[2020-07-05 06:56] LABS: International Normalized Ratio 0.95; Prothrombin Time Results 10.3 Sec (9.7-11.5)
== END 2020-07-05 07:30 | disposition short-term general hospital (02) ==
LOC: ER 05:48
PROVIDERS: Emergency Medicine
DX: I65.21 Occlusion and stenosis of right carotid artery (principal); I25.10 Atherosclerotic heart disease of native coronary artery without angina pectoris; I10 Essential (primary) hypertension; I25.2 Old myocardial infarction; F17.210 Nicotine dependence, cigarettes, uncomplicated; Z79.82 Long term (current) use of aspirin; Z79.02 Long term (current) use of antithrombotics/antiplatelets; Z79.899 Other long term (current) drug therapy
CPT/HCPCS: 37195; 70450; 70496; 70498; 80047; 80053; 82947; 84484; 85014; 85025; 85610; 85730; 93005; 93010; 99285-25; J2997; J7050; Q3014; Q9967

== ENCOUNTER 2020-07-08 19:57 | Emergency (ER) | payer OTHER ==
[~2020-07-08] VITALS: Ht 177.8 cm; Wt 108.9 kg
== END 2020-07-08 21:06 | disposition home or self-care (01) ==
LOC: ER 19:57
DX: F41.1 Generalized anxiety disorder (principal); F43.0 Acute stress reaction; I10 Essential (primary) hypertension; Z79.82 Long term (current) use of aspirin; Z79.899 Other long term (current) drug therapy
CPT/HCPCS: 99283; A9270

== ENCOUNTER 2020-07-09 14:01 | Emergency (ER) | payer OTHER ==
[2020-07-10] MEDS ORDERED: Ativan1 MG PO (00:34)
== END 2020-07-10 15:00 | disposition left against medical advice (07) ==
LOC: ER 14:01
DX: Z53.21 Procedure and treatment not carried out due to patient leaving prior to being seen by health care provider (principal)

== ENCOUNTER 2020-07-10 | Emergency (ER) | payer OTHER ==
[~2020-07-10] VITALS: Ht 177.8 cm; Wt 108.9 kg
[2020-07-10] MEDS ORDERED: Ativan1 MG PO (00:34)
== END 2020-07-10 00:47 | disposition home or self-care (01) ==
LOC: ER
DX: F41.9 Anxiety disorder, unspecified (principal); F17.210 Nicotine dependence, cigarettes, uncomplicated; Z79.02 Long term (current) use of antithrombotics/antiplatelets; Z79.899 Other long term (current) drug therapy
CPT/HCPCS: 99283

== ENCOUNTER 2020-07-18 18:06 | Emergency (ER) | payer OTHER ==
[~2020-07-18] VITALS: Ht 177.8 cm; Wt 99.8 kg
[~2020-07-18 18:06] MED LIST changes: +Ativan1 MG PO
== END 2020-07-18 19:36 | disposition left against medical advice (07) ==
LOC: ER 18:06
DX: R55 Syncope and collapse (principal); Z53.21 Procedure and treatment not carried out due to patient leaving prior to being seen by health care provider
CPT/HCPCS: 99283

== ENCOUNTER 2021-01-18 02:17 | Emergency (ER) | payer OTHER ==
[~2021-01-18] VITALS: Ht 170.2 cm; Wt 113.4 kg
[2021-01-21] MEDS ORDERED: AZIT250 PO (12:54)
[2021-01-21] MEDS ORDERED: IBUP400 PO (12:54)
[2021-01-21] MEDS ORDERED: ACET500 PO (12:54)
[2021-01-21] MEDS ORDERED: ONDA4ODT MM (12:54)
== END 2021-01-18 20:03 | disposition home or self-care (01) ==
LOC: ER 02:17
DX: F10.10 Alcohol abuse, uncomplicated (principal); I11.0 Hypertensive heart disease with heart failure; I25.10 Atherosclerotic heart disease of native coronary artery without angina pectoris; I25.2 Old myocardial infarction; Z86.73 Personal history of transient ischemic attack (TIA), and cerebral infarction without residual deficits; F17.210 Nicotine dependence, cigarettes, uncomplicated; Z79.82 Long term (current) use of aspirin; Z79.899 Other long term (current) drug therapy; I50.20 Unspecified systolic (congestive) heart failure
CPT/HCPCS: 99282; Q3014

== ENCOUNTER 2021-03-12 01:20 | Observation (INO) | payer OTHER ==
[~2021-03-12] VITALS: Ht 175.3 cm; Wt 90.7 kg
[~2021-03-12 01:20] MED LIST changes: +ACET500 PO; +AZIT250 PO; +ONDA4ODT MM
[2021-03-12] MEDS ORDERED: Lisinopril2.5 MG (01:28)
[2021-03-12] MEDS ORDERED: METO25ER (01:28)
[2021-03-12 01:39] LABS: BASOPHILS ABSOLUTE AUTO 0.07 K/mm3 (0.00-0.23); BASOPHILS PERCENT AUTO 1 % (0-2); EOSINOPHILS ABSOLUTE AUTO 0.37 K/mm3 (0.00-0.68); EOSINOPHILS PERCENT AUTO 4 % (0-6); Hematocrit 50.3 % (37.0-53.0); Hemoglobin 17.3 g/dL (13.5-17.5); IMMATURE GRAN ABSOLUTE AUTO 0.07 K/mm3 (0.00-0.10); IMMATURE GRAN PERCENT AUTO 1 % (0-1); LYMPHOCYTES ABSOLUTE AUTO 3.85 K/mm3 (0.84-5.20); LYMPHOCYTES PERCENT AUTO 41 % (21-46); MONOCYTES ABSOLUTE AUTO 0.88 K/mm3 (0.16-1.47); MONOCYTES PERCENT AUTO 9 % (4-13); Mean Corpuscular HGB Conc 34.4 g/dL (31.5-36.5); Mean Corpuscular Volume 87 fL (80-100); NEUTROPHILS ABSOLUTE AUTO 4.12 K/mm3 (1.96-9.15); NEUTROPHILS PERCENT AUTO 44 % (41-73); Platelet Count 304 K/mm3 (150-400); RDW Coefficient Variation 13.4 % (11.7-14.2); RDW Standard Deviation 43.1 fL (35.1-46.3); Red Blood Cell Count 5.76 M/mm3 (4.30-5.90); White Blood Cell Count 9.36 K/mm3 (4.00-11.30)
[2021-03-12 02:04] LABS: International Normalized Ratio 1.02; Prothrombin Time Results 10.7 Sec (9.7-11.5)
[2021-03-12 02:12] LABS: Alanine Aminotransfer (ALT/SGP 30 U/L (12-78); Albumin, Blood 3.5 g/dL (3.4-5.0); Albumin/Globulin Ratio 0.8 (0.8-1.8); Alk Phos 89 U/L (50-136); Anion Gap 10 mmol/L (6-16); Aspartate Aminotrans (AST/SGOT 28 U/L (12-37); Bilirubin, Total 0.5 mg/dL (0.1-1.0); Blood Urea Nitrogen 10 mg/dL (8-24); Bun/Creatinine Ratio 10.1 (12.0-20.0); CO2, Blood 22 mmol/L (21-32); Calcium, Blood 8.7 mg/dL (8.5-10.1); Chloride, Blood 108 mmol/L (98-108); Creatinine, Blood 0.99 mg/dL (0.60-1.20); Ethanol (Alcohol), Blood, Med 298 mg/dL; Globulin, Blood 4.5 g/dL (2.2-4.0); Glomerular Filtration Rate >60 (60-); Glucose, Blood 98 mg/dL (70-99); Sodium, Blood 140 mmol/L (136-145)
[2021-03-12 05:48] LABS: Influenza A, PCR NEGATIVE (NEGATIVE); Influenza B, PCR NEGATIVE (NEGATIVE); Resp Syncytial Virus, PCR NEGATIVE (NEGATIVE); SARS-Cov-2 (COVID-19) PCR, MMC NEGATIVE (NEGATIVE)
[2021-03-12 05:56] LABS: U Amphetamine Screen Not Detected; U Barbituate Screen Not Detected; U Benzodiazapine Screen Not Detected; U Buprenorphine Screen Not Detected; U Cannabinoids Screen DETECTED; U Cocaine Screen Not Detected; U Methadone Screen Not Detected; U Methamphetamine Screen Not Detected; U Opiates Screen Not Detected; U Oxycodone Screen Not Detected; U Phencyclidine Screen Not Detected; U Propoxyphene Screen Not Detected
[2021-03-12 06:04] LABS: BASOPHILS ABSOLUTE AUTO 0.06 K/mm3 (0.00-0.23); BASOPHILS PERCENT AUTO 1 % (0-2); EOSINOPHILS ABSOLUTE AUTO 0.27 K/mm3 (0.00-0.68); EOSINOPHILS PERCENT AUTO 3 % (0-6); Hematocrit 46.1 % (37.0-53.0); Hemoglobin 16.1 g/dL (13.5-17.5); IMMATURE GRAN ABSOLUTE AUTO 0.05 K/mm3 (0.00-0.10); IMMATURE GRAN PERCENT AUTO 1 % (0-1); LYMPHOCYTES ABSOLUTE AUTO 3.14 K/mm3 (0.84-5.20); LYMPHOCYTES PERCENT AUTO 34 % (21-46); MONOCYTES ABSOLUTE AUTO 0.75 K/mm3 (0.16-1.47); MONOCYTES PERCENT AUTO 8 % (4-13); Mean Corpuscular HGB 30.4 pg (26.0-34.0); Mean Corpuscular HGB Conc 34.9 g/dL (31.5-36.5); Mean Corpuscular Volume 87 fL (80-100); NEUTROPHILS ABSOLUTE AUTO 4.92 K/mm3 (1.96-9.15); NEUTROPHILS PERCENT AUTO 54 % (41-73); Platelet Count 261 K/mm3 (150-400); RDW Coefficient Variation 13.3 % (11.7-14.2); RDW Standard Deviation 42.8 fL (35.1-46.3); White Blood Cell Count 9.19 K/mm3 (4.00-11.30)
== END 2021-03-13 12:40 ==
LOC: ER 01:20 → EOR 01:21
PROVIDERS: ADMIT Student in an Organized Health Care Education/Training Program
DX: F32.2 Major depressive disorder, single episode, severe without psychotic features (principal); F10.14 Alcohol abuse with alcohol-induced mood disorder; I11.0 Hypertensive heart disease with heart failure; I50.20 Unspecified systolic (congestive) heart failure; I25.10 Atherosclerotic heart disease of native coronary artery without angina pectoris; I25.2 Old myocardial infarction; F17.200 Nicotine dependence, unspecified, uncomplicated; S31.115A Laceration without foreign body of abdominal wall, periumbilic region without penetration into peritoneal cavity, initial encounter; R00.0 Tachycardia, unspecified; R91.8 Other nonspecific abnormal finding of lung field; Z20.822 Contact with and (suspected) exposure to COVID-19; Z86.73 Personal history of transient ischemic attack (TIA), and cerebral infarction without residual deficits; Z95.818 Presence of other cardiac implants and grafts; X78.9XXA Intentional self-harm by unspecified sharp object, initial encounter
CPT/HCPCS: 0241U; 12002; 71260; 74177; 80053; 83690; 84484; 85025; 85610; 86850; 86900; 86901; 90714; 93005; 93010; 99285-25; A9270; C8929; G0378; G0480; J0690; Q3014; Q9957; Q9967

== ENCOUNTER 2022-01-01 18:26 | Emergency (ER) | payer OTHER ==
[~2022-01-01] VITALS: Ht 177.8 cm; Wt 108.9 kg
[~2022-01-01 18:26] MED LIST changes: +Lisinopril2.5 MG; +METO25ER
== END 2022-01-01 20:43 | disposition home or self-care (01) ==
LOC: ER 18:26
DX: S05.01XA Injury of conjunctiva and corneal abrasion without foreign body, right eye, initial encounter (principal); X58.XXXA Exposure to other specified factors, initial encounter; R05.9 Cough, unspecified; I25.10 Atherosclerotic heart disease of native coronary artery without angina pectoris; I11.0 Hypertensive heart disease with heart failure; I50.20 Unspecified systolic (congestive) heart failure; F17.200 Nicotine dependence, unspecified, uncomplicated; Z79.899 Other long term (current) drug therapy
CPT/HCPCS: 71046; A9270

== ENCOUNTER 2022-01-03 13:43 | Emergency (ER) | payer OTHER ==
[~2022-01-03] VITALS: Ht 177.8 cm; Wt 93.9 kg
[2022-01-03 17:05] LABS: BASOPHILS ABSOLUTE AUTO 0.11 K/mm3 (0.00-0.23); BASOPHILS PERCENT AUTO 1 % (0-2); EOSINOPHILS ABSOLUTE AUTO 0.53 K/mm3 (0.00-0.68); EOSINOPHILS PERCENT AUTO 5 % (0-6); Hematocrit 45.3 % (37.0-53.0); Hemoglobin 14.9 g/dL (13.5-17.5); IMMATURE GRAN ABSOLUTE AUTO 0.15 K/mm3 (0.00-0.10); IMMATURE GRAN PERCENT AUTO 1 % (0-1); LYMPHOCYTES ABSOLUTE AUTO 3.01 K/mm3 (0.84-5.20); LYMPHOCYTES PERCENT AUTO 29 % (21-46); MONOCYTES ABSOLUTE AUTO 1.03 K/mm3 (0.16-1.47); MONOCYTES PERCENT AUTO 10 % (4-13); Mean Corpuscular HGB 27.9 pg (26.0-34.0); Mean Corpuscular HGB Conc 32.9 g/dL (31.5-36.5); Mean Corpuscular Volume 85 fL (80-100); NEUTROPHILS ABSOLUTE AUTO 5.73 K/mm3 (1.96-9.15); NEUTROPHILS PERCENT AUTO 54 % (41-73); RDW Coefficient Variation 14.7 % (11.7-14.2); RDW Standard Deviation 44.7 fL (35.1-46.3); Red Blood Cell Count 5.35 M/mm3 (4.30-5.90); White Blood Cell Count 10.56 K/mm3 (4.00-11.30)
[2022-01-03 17:16] LABS: Albumin, Blood 3.1 g/dL (3.4-5.0); Albumin/Globulin Ratio 0.8 (0.8-1.8); Bilirubin, Total 0.5 mg/dL (0.1-1.0); Bun/Creatinine Ratio 13.1 (12.0-20.0); Calcium, Blood 8.8 mg/dL (8.5-10.1); Creatinine, Blood 1.07 mg/dL (0.60-1.20); Globulin, Blood 3.9 g/dL (2.2-4.0); Potassium, Blood 4.6 mmol/L (3.5-5.5)
[2022-01-03 17:45] LABS: Mean Platelet Volume 10.3 fL (9.1-12.4); Platelet Count 253 K/mm3 (150-400)
[2022-01-03] MEDS ORDERED: Lasix20 MG PO (19:17)
[2022-01-03] MEDS ORDERED: Neurontin 300300 MG PO (19:24)
== END 2022-01-03 19:47 | disposition home or self-care (01) ==
LOC: ER 13:43
PROVIDERS: Physician Assistant
DX: I11.0 Hypertensive heart disease with heart failure (principal); I50.21 Acute systolic (congestive) heart failure; M54.42 Lumbago with sciatica, left side; I25.10 Atherosclerotic heart disease of native coronary artery without angina pectoris; I25.2 Old myocardial infarction; F17.200 Nicotine dependence, unspecified, uncomplicated; Z86.73 Personal history of transient ischemic attack (TIA), and cerebral infarction without residual deficits; Z79.899 Other long term (current) drug therapy; Z79.01 Long term (current) use of anticoagulants
CPT/HCPCS: 36415; 71260; 80053; 83880; 84484; 85025; 85379; 93005; 93010; 93971; A9270; J1940; Q9967

== ENCOUNTER 2022-05-06 02:32 | Emergency (ER) | payer OTHER ==
[~2022-05-06] VITALS: Ht 177.8 cm; Wt 99.8 kg
[~2022-05-06 02:32] MED LIST changes: +Lasix20 MG PO; +Neurontin 300300 MG PO
[2022-05-06] MEDS ORDERED: FUROSEMIDE20 MG PO (02:47)
[2022-05-06] MEDS ORDERED: PLAVIX75 MG PO (02:48)
[2022-05-06] MEDS ORDERED: METOPROLOL SUCC25 MG PO (02:48)
[2022-05-06] MEDS ORDERED: ATOR40TA PO (02:48)
[2022-05-06] MEDS ORDERED: Prinivil10 MG PO (02:49)
[2022-05-06] MEDS ORDERED: KETOROLAC TROMET5 ML BOTHEYES (04:46)
== END 2022-05-06 04:42 | disposition home or self-care (01) ==
LOC: ER 02:32
DX: H16.133 Photokeratitis, bilateral (principal); Z79.899 Other long term (current) drug therapy; I11.0 Hypertensive heart disease with heart failure; I25.10 Atherosclerotic heart disease of native coronary artery without angina pectoris; I50.20 Unspecified systolic (congestive) heart failure; I25.2 Old myocardial infarction; F17.210 Nicotine dependence, cigarettes, uncomplicated
CPT/HCPCS: 99283; A9270

== ENCOUNTER 2022-05-26 12:52 | Emergency (ER) | payer OTHER ==
[~2022-05-26] VITALS: Ht 177.8 cm; Wt 99.8 kg
[~2022-05-26 12:52] MED LIST changes: +FUROSEMIDE20 MG PO; +KETOROLAC TROMET5 ML BOTHEYES; +METOPROLOL SUCC25 MG PO; +PLAVIX75 MG PO
[2022-05-26 13:57] LABS: BASOPHILS ABSOLUTE AUTO 0.17 K/mm3 (0.00-0.23); BASOPHILS PERCENT AUTO 1 % (0-2); EOSINOPHILS ABSOLUTE AUTO 0.33 K/mm3 (0.00-0.68); EOSINOPHILS PERCENT AUTO 3 % (0-6); Hematocrit 48.8 % (37.0-53.0); Hemoglobin 16.2 g/dL (13.5-17.5); IMMATURE GRAN ABSOLUTE AUTO 0.27 K/mm3 (0.00-0.10); IMMATURE GRAN PERCENT AUTO 2 % (0-1); LYMPHOCYTES ABSOLUTE AUTO 2.52 K/mm3 (0.84-5.20); LYMPHOCYTES PERCENT AUTO 19 % (21-46); MONOCYTES ABSOLUTE AUTO 1.49 K/mm3 (0.16-1.47); MONOCYTES PERCENT AUTO 11 % (4-13); Mean Corpuscular HGB 29.1 pg (26.0-34.0); Mean Corpuscular HGB Conc 33.2 g/dL (31.5-36.5); Mean Corpuscular Volume 88 fL (80-100); Mean Platelet Volume 9.9 fL (9.1-12.4); NEUTROPHILS ABSOLUTE AUTO 8.65 K/mm3 (1.96-9.15); NEUTROPHILS PERCENT AUTO 64 % (41-73); Platelet Count 354 K/mm3 (150-400); RDW Coefficient Variation 14.6 % (11.7-14.2); RDW Standard Deviation 46.1 fL (35.1-46.3); Red Blood Cell Count 5.57 M/mm3 (4.30-5.90); White Blood Cell Count 13.43 K/mm3 (4.00-11.30)
[2022-05-26 14:07] LABS: Albumin, Blood 3.5 g/dL (3.4-5.0); Albumin/Globulin Ratio 0.7 (0.8-1.8); Bilirubin, Total 0.2 mg/dL (0.1-1.0); Bun/Creatinine Ratio 23.2 (12.0-20.0); Calcium, Blood 8.9 mg/dL (8.5-10.1); Creatinine, Blood 0.99 mg/dL (0.60-1.20); Globulin, Blood 5.2 g/dL (2.2-4.0); Potassium, Blood 4.5 mmol/L (3.5-5.5); Total Protein, Blood 8.7 g/dL (6.4-8.2)
[2022-05-26] MEDS ORDERED: CYCL10 PO (16:00)
== END 2022-05-26 16:12 | disposition home or self-care (01) ==
LOC: ER 12:52
PROVIDERS: Physician Assistant
DX: R07.89 Other chest pain (principal); I10 Essential (primary) hypertension; F17.210 Nicotine dependence, cigarettes, uncomplicated; Z95.5 Presence of coronary angioplasty implant and graft; Z79.899 Other long term (current) drug therapy; Z86.73 Personal history of transient ischemic attack (TIA), and cerebral infarction without residual deficits
CPT/HCPCS: 71046; 80053; 83690; 83880; 84484; 85025; 93005; 93010; J1790; J1885

== ENCOUNTER 2022-10-08 03:58 | Inpatient (IN) | payer OTHER | END 2022-10-11 13:05 | disposition home or self-care (01) | DRG 246 | LOC: ER 03:58 → ICUE 03:59 → MEDS 10-10 18:28 | PROVIDERS: ADMIT Internal Medicine Cardiovascular Disease | PROC: 027034Z Dilation of Coronary Artery, One Artery with Drug-eluting Intraluminal Device, Percutaneous Approach (ICD-10-PCS; principal; 2022-10-08) | PROC: 4A023N6 Measurement of Cardiac Sampling and Pressure, Right Heart, Percutaneous Approach (ICD-10-PCS; 2022-10-08) | PROC: B2141ZZ Fluoroscopy of Right Heart using Low Osmolar Contrast (ICD-10-PCS; 2022-10-08) | PROC: B2111ZZ Fluoroscopy of Multiple Coronary Arteries using Low Osmolar Contrast (ICD-10-PCS; 2022-10-08) | DX: I21.3 ST elevation (STEMI) myocardial infarction of unspecified site (principal); J18.9 Pneumonia, unspecified organism; J96.01 Acute respiratory failure with hypoxia; I50.22 Chronic systolic (congestive) heart failure; N17.9 Acute kidney failure, unspecified; N39.0 Urinary tract infection, site not specified; I42.0 Dilated cardiomyopathy; I13.0 Hypertensive heart and chronic kidney disease with heart failure and stage 1 through stage 4 chronic kidney disease, or unspecified chronic kidney disease; J44.9 Chronic obstructive pulmonary disease, unspecified; I95.9 Hypotension, unspecified; G47.33 Obstructive sleep apnea (adult) (pediatric); E03.9 Hypothyroidism, unspecified; K21.9 Gastro-esophageal reflux disease without esophagitis; N18.30 Chronic kidney disease, stage 3 unspecified; F20.9 Schizophrenia, unspecified; I27.20 Pulmonary hypertension, unspecified; I25.10 Atherosclerotic heart disease of native coronary artery without angina pectoris; E78.00 Pure hypercholesterolemia, unspecified; I25.5 Ischemic cardiomyopathy; F12.90 Cannabis use, unspecified, uncomplicated; E66.9 Obesity, unspecified; D72.828 Other elevated white blood cell count; F17.210 Nicotine dependence, cigarettes, uncomplicated; Z95.5 Presence of coronary angioplasty implant and graft; Z79.891 Long term (current) use of opiate analgesic; Z79.899 Other long term (current) drug therapy; I25.2 Old myocardial infarction; Z87.39 Personal history of other diseases of the musculoskeletal system and connective tissue; Z98.890 Other specified postprocedural states; Z79.82 Long term (current) use of aspirin; Z86.73 Personal history of transient ischemic attack (TIA), and cerebral infarction without residual deficits; Z71.6 Tobacco abuse counseling; Z68.31 Body mass index [BMI] 31.0-31.9, adult ==

== ENCOUNTER 2022-10-21 15:22 | Inpatient (IN) | payer OTHER ==
[~2022-10-21] VITALS: Ht 177.8 cm; Wt 95.2 kg
[~2022-10-21 15:22] MED LIST changes: +CARV3.125 PO; +FURO20 PO; +HYDROCODONE-AC1 EA19 PO; +Lisinopril2.5 MG PO; +PREG150 PO
[2022-10-21 16:38] LABS: BASOPHILS ABSOLUTE AUTO 0.09 K/mm3 (0.00-0.23); BASOPHILS PERCENT AUTO 1 % (0-2); EOSINOPHILS ABSOLUTE AUTO 0.34 K/mm3 (0.00-0.68); EOSINOPHILS PERCENT AUTO 3 % (0-6); Hematocrit 38.8 % (37.0-53.0); Hemoglobin 13.1 g/dL (13.5-17.5); IMMATURE GRAN ABSOLUTE AUTO 0.11 K/mm3 (0.00-0.10); IMMATURE GRAN PERCENT AUTO 1 % (0-1); LYMPHOCYTES ABSOLUTE AUTO 2.27 K/mm3 (0.84-5.20); LYMPHOCYTES PERCENT AUTO 21 % (21-46); MONOCYTES PERCENT AUTO 8 % (4-13); Mean Corpuscular HGB Conc 33.8 g/dL (31.5-36.5); Mean Corpuscular Volume 86 fL (80-100); Mean Platelet Volume 10.3 fL (9.1-12.4); NEUTROPHILS PERCENT AUTO 66 % (41-73); Platelet Count 271 K/mm3 (150-400); RDW Coefficient Variation 14.1 % (11.7-14.2); RDW Standard Deviation 43.7 fL (35.1-46.3); Red Blood Cell Count 4.52 M/mm3 (4.30-5.90); White Blood Cell Count 10.91 K/mm3 (4.00-11.30)
[2022-10-21 17:07] LABS: Albumin, Blood 3.2 g/dL (3.4-5.0); Albumin/Globulin Ratio 0.8 (0.8-1.8); Bilirubin, Total 0.6 mg/dL (0.1-1.0); Calcium, Blood 8.9 mg/dL (8.5-10.1); Creatinine, Blood 0.84 mg/dL (0.60-1.20); Globulin, Blood 3.8 g/dL (2.2-4.0); Potassium, Blood 4.1 mmol/L (3.5-5.5)
[2022-10-21] MEDS ORDERED: FUROSEMIDE20 MG PO (22:00)
[2022-10-21] MEDS ORDERED: METOPROLOL SUCC25 MG PO (22:01)
[2022-10-21] MEDS ORDERED: CYCL10 PO (22:03)
[2022-10-21] MEDS ORDERED: ZOLOFT25 MG PO (22:03)
[2022-10-21 23:05] VITALS: BP 136/84
--- NOTE | 2022-10-22 01:21 | NUR ---
ADMISSION NOTE PATIENT ARRIVED TO UNIT FROM ED AT 2310 VIA WHEELCHAIR. IS A/Ox4, PLEASANT AFFECT. ORIENTED TO UNIT, ROOM AND CALL LIGHT USE. C/O HEADACHE, RECEIVED PRN TYLENOL, RELIEF STATED. DENIES CHEST PAIN, SOB, NOR DIFFICULTY BREATHING. MINIMAL TO NO ASSIT NEEDED, INDEPENDANT IN ROOM. 2 RN SKIN CHECK COMPLETE. NO SIGNIFICANT SKIN INTEGRITY ISSUES. DISHEVELED APPEARANCE, REFUSED TO CHANGE INTO GOWN NOR ADDRESS PERSONAL HYGIENE. PIV TO RIGHT WRIST, PATENT, SL. ON TELEMETRY, SR 80s. IN NO ACUTE DISTRESS AT THIS TIME, CALL LIGHT WITHIN REACH.
[2022-10-22 03:11] VITALS: BP 127/92
[2022-10-22 05:47] LABS: Bun/Creatinine Ratio 15.1 (12.0-20.0); Calcium, Blood 8.7 mg/dL (8.5-10.1); Creatinine, Blood 0.99 mg/dL (0.60-1.20); Magnesium, Blood 1.9 mg/dL (1.6-2.4); Potassium, Blood 3.9 mmol/L (3.5-5.5)
[2022-10-22 07:52] VITALS: BP 128/81
[2022-10-22 14:07] LABS: U Amphetamine Screen Not Detected; U Barbituate Screen Not Detected; U Benzodiazapine Screen Not Detected; U Buprenorphine Screen Not Detected; U Cannabinoids Screen Not Detected; U Cocaine Screen Not Detected; U Methadone Screen Not Detected; U Methamphetamine Screen Not Detected; U Opiates Screen Not Detected; U Oxycodone Screen Not Detected; U Phencyclidine Screen Not Detected; U Propoxyphene Screen Not Detected
[2022-10-22 15:13] VITALS: BP 135/85
[2022-10-22 19:15] VITALS: BP 124/87
--- NOTE | 2022-10-22 19:35 | NUR ---
SHIFT SUMMARY NO ACUTE EVENTS DURING SHIFT. PATIENT UP TO BATHROOM INDEPENDENT. BED IN LOW POSITION, CALL LIGHT IN REACH.
[2022-10-23] VITALS (7 sets, daily range): BP systolic 96–125; BP diastolic 61–105
--- NOTE | 2022-10-23 04:21 | NUR ---
SHIFT SUMMARY PATIENT HAD NO ACUTE CHANGES. AXOX 4 AND INDEPENDENT IN ROOM AND HALLWAY. DENIES CHEST PAIN, SOB, AND N/V. VSS/AFEBRILE. PIV REMAINS INTACT. TELE MONITOR NSR 72. ON ROOM AIR. FAMILY PRESENT FIRST PART OF SHIFT. WATCHED TV AND ABLE TO SLEEP. COOPERATIVE WITH CARE. CALL LIGHT IN REACH. BED IN LOWEST POSITION. WILL CONTINUE TO MONITOR UNTIL DAY SHIFT NURSE ASSUMES CARE.
[2022-10-23 05:13] LABS: BASOPHILS PERCENT AUTO 1 % (0-2); EOSINOPHILS ABSOLUTE AUTO 0.47 K/mm3 (0.00-0.68); EOSINOPHILS PERCENT AUTO 5 % (0-6); Hemoglobin 15.1 g/dL (13.5-17.5); IMMATURE GRAN ABSOLUTE AUTO 0.15 K/mm3 (0.00-0.10); IMMATURE GRAN PERCENT AUTO 2 % (0-1); LYMPHOCYTES ABSOLUTE AUTO 2.24 K/mm3 (0.84-5.20); LYMPHOCYTES PERCENT AUTO 23 % (21-46); MONOCYTES ABSOLUTE AUTO 0.98 K/mm3 (0.16-1.47); MONOCYTES PERCENT AUTO 10 % (4-13); Mean Corpuscular HGB Conc 34.3 g/dL (31.5-36.5); Mean Corpuscular Volume 85 fL (80-100); Mean Platelet Volume 10.5 fL (9.1-12.4); NEUTROPHILS PERCENT AUTO 60 % (41-73); Platelet Count 275 K/mm3 (150-400); RDW Coefficient Variation 14.3 % (11.7-14.2); Red Blood Cell Count 5.21 M/mm3 (4.30-5.90); White Blood Cell Count 9.84 K/mm3 (4.00-11.30)
[2022-10-23 05:39] LABS: Bun/Creatinine Ratio 22.3 (12.0-20.0); Calcium, Blood 9.1 mg/dL (8.5-10.1); Creatinine, Blood 0.99 mg/dL (0.60-1.20); Potassium, Blood 3.6 mmol/L (3.5-5.5)
--- NOTE | 2022-10-23 10:18 | NUR ---
DR DODD AWARE OF BLOOD PRESSURES, ORDERS TO GIVE LASIX NOW, RECHECK BP, HR IN 2 HOURS AROUND 1215. AND IF APPROPRIATE GIVE SPIRONOLACTONE AND LISINOPRIL AT THAT TIME.
--- NOTE | 2022-10-23 15:02 | NUR ---
PATIENT WITH MUSCLE CRAMPING OF LEFT ARM/HAND AND LEFT LOWER LEG. LMOM FOR DR DODD REGARDING CRAMPING.
--- NOTE | 2022-10-23 19:31 | NUR ---
SHIFT SUMMARY PATIENT WITH LOW PRESSURES THIS AM, AWARE, THIS AFTERNOON WITH SHARP PAINS IN LEFT ARM, HAND AND LEFT FOOT, LMOM FOR DR SIERRA. THIS PAIN WENT AWAY QUICKLY. PATIENT WITH NO OTHER ACUTE EVENTS DURING SHIFT, CALL LIGHT IN REACH, BED IN LOW POSITION.
[2022-10-24 03:54] VITALS: BP 119/72
--- NOTE | 2022-10-24 04:38 | NUR ---
SHIFT SUMMARY PATIENT HAD NO ACUTE CHANGES. AXOX 4 AND INDEPENDENT IN ROOM AND MOSHER. PIV REMAINS INTACT. TELE MONITOR NSR 77 W/PVC. VSS/AFEBRILE. DENIES CHEST PAIN, SOB, AND N/V. FAMILY PRESENT AT SHIFT CHANGE. ABLE TO SLEEP MOST OF THE SHIFT. CALL LIGHT IN REACH. BED IN LOWEST POSITION. WILL CONTINUE TO MONITOR UNTIL DAY SHIFT NURSE ASSUMES CARE.
[2022-10-24 07:05] VITALS: BP 110/79
[2022-10-24] MEDS ORDERED: SPIR50 PO (12:02)
[2022-10-24] MEDS ORDERED: FURO80 PO (12:03)
[2022-10-24] MEDS ORDERED: POTCHL20ER PO (12:04)
--- NOTE | 2022-10-24 13:48 | NUR ---
PT DISCHARGED FROM THE UNIT. IV REMOVED. DISCHARGE INSTRUCTIONS REVIEWED. MEDICATIONS FAXED TO [facility]. DISCHARGE INSTRUCTIONS REVIEWED. INSTRUCTED ON FOLLOW UP APTS. PT LEFT VIA WHEEL CHAIR.
== END 2022-10-24 13:42 | disposition home or self-care (01) | DRG 280 ==
LOC: ER 15:22 → MEDS 15:23 → ENPENDDIS 10-24 11:35 → MEDS 10-24 13:42
PROVIDERS: Internal Medicine; Student in an Organized Health Care Education/Training Program; ADMIT Student in an Organized Health Care Education/Training Program
DX: I11.0 Hypertensive heart disease with heart failure (principal); I50.23 Acute on chronic systolic (congestive) heart failure; I21.3 ST elevation (STEMI) myocardial infarction of unspecified site; I25.10 Atherosclerotic heart disease of native coronary artery without angina pectoris; E78.5 Hyperlipidemia, unspecified; I25.5 Ischemic cardiomyopathy; F17.210 Nicotine dependence, cigarettes, uncomplicated; G47.33 Obstructive sleep apnea (adult) (pediatric); E86.1 Hypovolemia; I08.1 Rheumatic disorders of both mitral and tricuspid valves; F15.11 Other stimulant abuse, in remission; Z79.82 Long term (current) use of aspirin; Z79.02 Long term (current) use of antithrombotics/antiplatelets; Z95.5 Presence of coronary angioplasty implant and graft; Z86.73 Personal history of transient ischemic attack (TIA), and cerebral infarction without residual deficits; Z79.899 Other long term (current) drug therapy; Z79.01 Long term (current) use of anticoagulants; Z98.890 Other specified postprocedural states
CPT/HCPCS: 36415; 71046; 71260; 80048; 80053; 82947; 83735; 83880; 84484; 85025; 85379; 85651; 86140; 93005; 93010; 93308; 93321; 96372; 96374; 96376; 99285-25; A9270; G0378; J1650; J1940; Q9967

== ENCOUNTER 2022-10-25 18:53 | Observation (INO) | payer OTHER ==
[~2022-10-25] VITALS: Ht 177.8 cm; Wt 106.0 kg
[~2022-10-25 18:53] MED LIST changes: +FURO80 PO; +POTCHL20ER PO; +SPIR50 PO; +ZOLOFT25 MG PO
[2022-10-25 19:57] LABS: Albumin, Blood 3.7 g/dL (3.4-5.0); Albumin/Globulin Ratio 0.9 (0.8-1.8); Bilirubin, Total 0.6 mg/dL (0.1-1.0); Bun/Creatinine Ratio 17.4 (12.0-20.0); Creatinine, Blood 1.21 mg/dL (0.60-1.20); Potassium, Blood 4.6 mmol/L (3.5-5.5); Total Protein, Blood 7.7 g/dL (6.4-8.2)
[2022-10-25 20:25] LABS: BASOPHILS ABSOLUTE AUTO 0.09 K/mm3 (0.00-0.23); BASOPHILS PERCENT AUTO 1 % (0-2); EOSINOPHILS ABSOLUTE AUTO 0.41 K/mm3 (0.00-0.68); EOSINOPHILS PERCENT AUTO 4 % (0-6); Hematocrit 43.5 % (37.0-53.0); Hemoglobin 14.9 g/dL (13.5-17.5); IMMATURE GRAN ABSOLUTE AUTO 0.16 K/mm3 (0.00-0.10); IMMATURE GRAN PERCENT AUTO 2 % (0-1); LYMPHOCYTES ABSOLUTE AUTO 0.77 K/mm3 (0.84-5.20); LYMPHOCYTES PERCENT AUTO 8 % (21-46); MONOCYTES ABSOLUTE AUTO 1.47 K/mm3 (0.16-1.47); MONOCYTES PERCENT AUTO 15 % (4-13); Mean Corpuscular HGB 28.8 pg (26.0-34.0); Mean Corpuscular HGB Conc 34.3 g/dL (31.5-36.5); Mean Corpuscular Volume 84 fL (80-100); NEUTROPHILS ABSOLUTE AUTO 6.98 K/mm3 (1.96-9.15); NEUTROPHILS PERCENT AUTO 71 % (41-73); RDW Coefficient Variation 14.3 % (11.7-14.2); RDW Standard Deviation 43.8 fL (35.1-46.3); Red Blood Cell Count 5.17 M/mm3 (4.30-5.90); White Blood Cell Count 9.88 K/mm3 (4.00-11.30)
[2022-10-25 20:27] LABS: Mean Platelet Volume 10.6 fL (9.1-12.4); Platelet Count 248 K/mm3 (150-400)
[2022-10-25 23:02] LABS: Anti-Xa UFH, PHA Monitoring <0.10 IU/mL; D-Dimer, Quantitative 0.86 mg/L FEU (0.00-0.52); International Normalized Ratio 1.04; Prothrombin Time Results 10.9 Sec (9.7-11.5)
[2022-10-25 23:41] VITALS: BP 122/73
--- NOTE | 2022-10-26 00:24 | NUR ---
ADMIT NOTE 47 YR OLD MALE ADMITTED TO FLOOR FROM THE ED, HAVING BEEN DISCHARGED A FEW DAYS AGO PREVIOUSLY. ADMIT DX OF CHEST PAIN. ED RN REPORTED RECENT HEART ATTACK "9 DAYS AGO", AND RECENT PLACEMENT OF 2 STENTS. EF 20%. ALERT AND ORIENTED X 4. DENIES LOSS OF FEELING. HX OF METH ABUSE BUT DENIES HAVING HAD ANY IN THE LAST TEN DAYS. DR COREY MELENDEZ IN TO ROOM FOR BEDSIDE ASSESSMENT. PLACED ON TELE. PHARMACOGENETICIST REPORTS SINUS TACH. PT INTERMITTENT BURPING, VOICED HE DOES THIS WHEN HE IS ABOUT TO HAVE HEART ATTACKS IN THE PAST, (ED RN REPORTED HX OF 4 TN'S). TOLERATES 2 HALF SANDWICHES, VOICED VERY HUNGRY. HOB ELEVATED. TEMP 101.4 TEMPORAL, OTHERWISE VSS. ORIENTED TO USE OF CALL LIGHT. AGREES TO USE CALL LIGHT IF NEDS ARRISE. RAILS P X 2. LAST TROP 0.73. REVIEWS LATEST LABS AND VOICES THAT THYE ARE BETTER THAN NOTED DURING LAST ADMISSION. WILL CONTINUE TO MONITOR. NEW LABS DRAWN PER BALANCE RECESSER.
[2022-10-26 01:06] LABS: BASOPHILS PERCENT AUTO 1 % (0-2); EOSINOPHILS ABSOLUTE AUTO 0.29 K/mm3 (0.00-0.68); EOSINOPHILS PERCENT AUTO 3 % (0-6); Hemoglobin 14.2 g/dL (13.5-17.5); IMMATURE GRAN ABSOLUTE AUTO 0.11 K/mm3 (0.00-0.10); IMMATURE GRAN PERCENT AUTO 1 % (0-1); LYMPHOCYTES ABSOLUTE AUTO 1.03 K/mm3 (0.84-5.20); LYMPHOCYTES PERCENT AUTO 11 % (21-46); MONOCYTES ABSOLUTE AUTO 1.34 K/mm3 (0.16-1.47); MONOCYTES PERCENT AUTO 14 % (4-13); Mean Corpuscular HGB 28.7 pg (26.0-34.0); Mean Corpuscular HGB Conc 33.8 g/dL (31.5-36.5); Mean Corpuscular Volume 85 fL (80-100); Mean Platelet Volume 10.4 fL (9.1-12.4); NEUTROPHILS PERCENT AUTO 71 % (41-73); Platelet Count 260 K/mm3 (150-400); RDW Coefficient Variation 14.5 % (11.7-14.2); RDW Standard Deviation 44.3 fL (35.1-46.3); Red Blood Cell Count 4.95 M/mm3 (4.30-5.90); White Blood Cell Count 9.77 K/mm3 (4.00-11.30)
--- NOTE | 2022-10-26 01:22 | NUR ---
NURSE NOTE VOICED CHEST PAIN OF CENTRAL CHEST EARLIER WITH MD, WHO DID BEDSIDE ASSESMENT. VOICED SEVERE TOOTHACHE NOW. RECEIVED REGLAN IV, MD ORDERED STAT EKG. SEE RESULTS FOR FOLLOW UP. CALL LIGHT IN REACH
[2022-10-26 01:28] LABS: Albumin, Blood 3.6 g/dL (3.4-5.0); Albumin/Globulin Ratio 0.9 (0.8-1.8); Bilirubin, Total 0.6 mg/dL (0.1-1.0); Bun/Creatinine Ratio 16.8 (12.0-20.0); Calcium, Blood 8.5 mg/dL (8.5-10.1); Creatinine, Blood 1.25 mg/dL (0.60-1.20); Globulin, Blood 4.1 g/dL (2.2-4.0); Magnesium, Blood 1.9 mg/dL (1.6-2.4); Potassium, Blood 4.5 mmol/L (3.5-5.5); Total Protein, Blood 7.7 g/dL (6.4-8.2)
--- NOTE | 2022-10-26 01:56 | NUR ---
EKG DONE, NORMAL SINUS WITH POSSIBLE LEFT ATRIAL ENLARGEMENT. RADIOLOGY CALLED RE TIME TO DO THE CT OF NECK/ETC. PT CURRENTLY RESTING ASYMPTOMATIC. MD NOTIFIED, AND SINCE PT SLEEPING, PUSHED CT TO THE AM. NEEDLE PUNCH MACHINE OPERATOR HELPER NOTIFIED. CALL LIGHT IN REACH. WILL CONTINUE TO MONITOR
[2022-10-26 04:10] VITALS: BP 152/92
--- NOTE | 2022-10-26 04:16 | NUR ---
MOTOR ANALYST SUMMARY WAS ADMITTED EARLIER IN THE SHIFT WITH CHEST PAIN, RECENT HX OF WA AND STENTS PLACED. SLIGHT FEVER ON ADMIT, TRENDED DOWN TO WNL, OTHERWISE VSS. ALERT AND ORIENTED. VOICED PAIN OF MOUTH WELL, TOOTHACHE. MD HAD ASSESSED EARLIER AND ORDERED MORPHINE FOR PAIN AND CT OF MOUTH SCHEDULED LATER TODAY. HAS BEEN RESTING QUIETLY WITH FEW INTERRUPTIONS SINCE. CALL LIGHT IN REACH. WILL CONTINUE TO MONITOR
--- NOTE | 2022-10-26 07:13 | NUR ---
NOTES: PATIENT LEFT THE ROOM AT THIS TIME TO IMAGING AND TRANSPORTED VIA WHEELCHAIR BY BATH HOUSE ATTENDANT.
[2022-10-26 07:44] VITALS: BP 146/92
[2022-10-26 08:51] LABS: U Amphetamine Screen Not Detected; U Barbituate Screen Not Detected; U Benzodiazapine Screen Not Detected; U Buprenorphine Screen Not Detected; U Cannabinoids Screen Not Detected; U Cocaine Screen Not Detected; U Methadone Screen Not Detected; U Methamphetamine Screen Not Detected; U Opiates Screen DETECTED; U Oxycodone Screen Not Detected; U Phencyclidine Screen Not Detected; U Propoxyphene Screen Not Detected
[2022-10-26 09:18] LABS: Influenza A, PCR NEGATIVE (NEGATIVE); Influenza B, PCR NEGATIVE (NEGATIVE); Resp Syncytial Virus, PCR NEGATIVE (NEGATIVE)
--- NOTE | 2022-10-26 09:45 | NUR ---
NOTE-CRITICAL LAB VALUE: THIS RN WAS NOTIFIED BY ENTERPRISE MANAGER AT AROUND 0940 FOR CRITICAL VALUE TROPONIN OF 129. NOTIFIED DR. SALDAÑA REGARDING THIS ISSUE. RECEIVED ORDER FROM DR. SALDAÑA TO PLACE PATIENT ON NPO AND CONSULT TO COLOR RECEIVER.
[2022-10-26 10:07] LABS: SARS-Cov-2 (COVID-19) PCR, MMC POSITIVE (NEGATIVE)
--- NOTE | 2022-10-26 11:02 | NUR ---
NOTE: NASAL SWAB TESTING WAS PERFORMED THIS AM c RESULT OF COVID POSITIVE. PATIENT PLACED ON ENHANCE ISOLATION FOR COVID POSITIVE. DR. SALDAÑA WAS NOTIFIED c THIS ISSUES. PER DR. SALDAÑA TO REMOVED PATIENT FROM NPO.
[2022-10-26 11:43] VITALS: BP 107/70
--- NOTE | 2022-10-26 11:56 | NUR ---
AT 1142 RECEIVED A CALL VIA [email or web address] FROM BERENICE GRIFFIN, PATIENT IS HAVING EPISODE OF DIAPHORETIC, SLIGHTLY DISORIENTED AND TRYING TO GO TO BATHROOM BUT WAS NOT ABLE TO VOID. THIS RN ASSESS PATIENT, DENIES CP/PRESSURE, SOB, AND DIZZINESS. VITALS SIGNS TAKEN; BP 107/70 c HR OF 84 BPM. THIS RN CALLED PREFORM MACHINE OPERATOR TO CHECKED IF THERE WERE ANY CHANGES IN PATIENT RHYTHM AND HR. PER PREFORM MACHINE OPERATOR MICHELE THERE ARE NO CHANGES AND HAS BEEN CONSISTENT SR HR RANGES IN THE 70'S-90'S BPM. BS ACCUCHECK WAS OBTAINED c THE RESULT OF 111. NOTIFIED GERIATRIC AIDEAVEL REGARDING THIS ISSUES. LISA VALLECILLO WILL CONTINUE TO MONITOR PATIENT T/O SHIFT.
--- NOTE | 2022-10-26 13:58 | NUR ---
NOTE: PATIENT A&OX4. DENIES CP/PRESSURE, SOB, AND DIZZINESS. ON TELE, SR HR RANGES 70'S-90'S BPM. RA c SPO2 ABOVE 92%. LUNGS CLEAR T/O TO AUSCULTATIONS. PATIENT REPORTS PAIN 5-8/10 TO FRONT UPPER TOOTH ACHE, MEDICATED PER EMAR PAIN MEDS c GOOD EFFECT. PATIENT HAD CT TO NECK THIS AM, AWAITING FOR RESULT. CARDILOGY CONSULT PLACED AND SPOKE TO ANSWERING SERVICES THIS AM, AWAITING FOR THE CARDILOGY TO SEE THE PATIENT. THIS RN SPOKE TO BAO OVER THE PHONE PATIENT (SIG OTHER-NEXT OF KIN) THIS AM, UPDATE GIVEN TO BAO REGARDING PATIENT CONDITION AND THE PLAN OF CARE. THIS RN ASSURE ABO IF THERE ARE ANY CHANGES IN PATIENT CONDITION/PLAN SHE WILL BE NOTIFIED AND THIS RN CAN ONLY GIVE UPDATE TO ONE FAMILY MEMBER. BAO VERBALIZED UNDERSTANDING AND NO FURTHER QUESTIONS. AT AROUND 1300 2 FAMILY MEMBER CAME BY AND DEMANDING TO ASK FOR AN UPDATE REGARDING PATIENT CONDITION. WAGON DRILL OPERATOR SPOKE TO FAMILY MEMBER AND INFORMED THAT THIS RN ALREADY GIVE AN UPADTE TO BAO THIS AM AND THERE AR NO CHANGES, SINCE THEN. FAMILY MEMBER WAS UPSET STATED "I WANT YOU GUYS TO GIVE EVERY MEMBERS OF OUR FAMILY TO GIVE AN UPDATE NOT ONLY BAO. FAMILY MEMBER ALSO STATED "WE WANT THE CARDILOGY NOW AND WE CANNOT WAIT FOR LATER." PER FAMILY MEMBER CATHERINE IS GOING AND WE ARE LEAVING THE HOSPITAL NOW, WE ARE TAKING HIM TO [place]." WAGON DRILL OPERATOR WAS NOTIFIED DR. SALDAÑA REGARDING THIS ISSUES. IV WAS DC'D. ALL PATIENT PERSONAL BELONGINGS WERE SENT HOME c THE PATIENT. PATIENT LEFT AMA AT AROUND 1345.
== END 2022-10-26 13:48 | disposition left against medical advice (07) ==
LOC: ER 18:53 → MEDS 18:54
PROVIDERS: Emergency Medicine; Physician Assistant; ADMIT Student in an Organized Health Care Education/Training Program
DX: R07.89 Other chest pain (principal); U07.1 COVID-19; E87.1 Hypo-osmolality and hyponatremia; I25.5 Ischemic cardiomyopathy; K05.219 Aggressive periodontitis, localized, unspecified severity; I25.10 Atherosclerotic heart disease of native coronary artery without angina pectoris; I10 Essential (primary) hypertension; I25.2 Old myocardial infarction; Z95.5 Presence of coronary angioplasty implant and graft; F17.210 Nicotine dependence, cigarettes, uncomplicated
CPT/HCPCS: 0241U; 36415; 70491; 71046; 80053; 82947; 83690; 83735; 83880; 84443; 84484; 85025; 85379; 85520; 85610; 85730; 87040; 93005; 93010; 96372; 96374; 96375; 96376; 99285-25; A9270; G0378; J1650; J2270; J2405; J2765; J3010; Q9967

== ENCOUNTER 2023-01-05 05:18 | Emergency (ER) | payer OTHER ==
[~2023-01-05] VITALS: Ht 177.8 cm; Wt 106.6 kg
[2023-01-05] MEDS ORDERED: JARDIANCE10 MG PO (05:38)
[2023-01-05] MEDS ORDERED: Isosorbide Mono30 MG PO (05:39)
[2023-01-05] MEDS ORDERED: METO25ER PO (05:39)
[2023-01-05] MEDS ORDERED: METOPROLOL SUCC25 MG (05:40)
[2023-01-05] MEDS ORDERED: ISOSORBIDE MONO30 MG PO (05:40)
[2023-01-05] MEDS ORDERED: FURO80 (05:42)
[2023-01-05 05:58] LABS: BASOPHILS ABSOLUTE AUTO 0.11 K/mm3 (0.00-0.23); BASOPHILS PERCENT AUTO 1 % (0-2); EOSINOPHILS ABSOLUTE AUTO 0.34 K/mm3 (0.00-0.68); EOSINOPHILS PERCENT AUTO 2 % (0-6); Hematocrit 42.5 % (37.0-53.0); Hemoglobin 14.7 g/dL (13.5-17.5); IMMATURE GRAN ABSOLUTE AUTO 0.08 K/mm3 (0.00-0.10); IMMATURE GRAN PERCENT AUTO 1 % (0-1); LYMPHOCYTES ABSOLUTE AUTO 1.95 K/mm3 (0.84-5.20); LYMPHOCYTES PERCENT AUTO 12 % (21-46); MONOCYTES PERCENT AUTO 10 % (4-13); Mean Corpuscular HGB 28.9 pg (26.0-34.0); Mean Corpuscular HGB Conc 34.6 g/dL (31.5-36.5); Mean Corpuscular Volume 84 fL (80-100); NEUTROPHILS ABSOLUTE AUTO 12.54 K/mm3 (1.96-9.15); NEUTROPHILS PERCENT AUTO 76 % (41-73); Platelet Count 269 K/mm3 (150-400); RDW Coefficient Variation 14.2 % (11.7-14.2); RDW Standard Deviation 42.5 fL (35.1-46.3); Red Blood Cell Count 5.09 M/mm3 (4.30-5.90); White Blood Cell Count 16.62 K/mm3 (4.00-11.30)
[2023-01-05 06:06] LABS: Albumin, Blood 3.6 g/dL (3.4-5.0); Albumin/Globulin Ratio 0.9 (0.8-1.8); Bilirubin, Total 0.6 mg/dL (0.1-1.0); Calcium, Blood 8.7 mg/dL (8.5-10.1); Creatinine, Blood 1.23 mg/dL (0.60-1.20); Magnesium, Blood 2.1 mg/dL (1.6-2.4); Potassium, Blood 4.1 mmol/L (3.5-5.5); Total Protein, Blood 7.6 g/dL (6.4-8.2)
[2023-01-05 06:20] VITALS: BP 121/61
== END 2023-01-05 09:30 | disposition home or self-care (01) ==
LOC: ER 05:18
PROVIDERS: Student in an Organized Health Care Education/Training Program
DX: R07.9 Chest pain, unspecified (principal); Z79.899 Other long term (current) drug therapy; Z79.82 Long term (current) use of aspirin; I10 Essential (primary) hypertension; I25.2 Old myocardial infarction; Z87.891 Personal history of nicotine dependence
CPT/HCPCS: 71046; 80053; 83735; 83880; 84484; 85025; 93005; 93010; 99285-25; A9270

== ENCOUNTER 2023-04-05 16:29 | Emergency (ER) | payer OTHER ==
[~2023-04-05] VITALS: Ht 177.8 cm; Wt 117.9 kg
[~2023-04-05 16:29] MED LIST changes: +FURO80; +ISOSORBIDE MONO30 MG PO; +Isosorbide Mono30 MG PO; +JARDIANCE10 MG PO; +METOPROLOL SUCC25 MG
[2023-04-05 17:29] LABS: Albumin, Blood 3.8 g/dL (3.4-5.0); Albumin/Globulin Ratio 0.8 (0.8-1.8); Bilirubin, Total 0.5 mg/dL (0.1-1.0); Bun/Creatinine Ratio 16.2 (12.0-20.0); Calcium, Blood 8.8 mg/dL (8.5-10.1); Creatinine, Blood 1.11 mg/dL (0.60-1.20); Globulin, Blood 4.5 g/dL (2.2-4.0); Potassium, Blood 4.4 mmol/L (3.5-5.5); Total Protein, Blood 8.3 g/dL (6.4-8.2)
[2023-04-05 17:30] LABS: BASOPHILS ABSOLUTE AUTO 0.13 K/mm3 (0.00-0.23); BASOPHILS PERCENT AUTO 1 % (0-2); EOSINOPHILS ABSOLUTE AUTO 0.57 K/mm3 (0.00-0.68); EOSINOPHILS PERCENT AUTO 4 % (0-6); Hematocrit 50.5 % (37.0-53.0); Hemoglobin 17.4 g/dL (13.5-17.5); IMMATURE GRAN ABSOLUTE AUTO 0.13 K/mm3 (0.00-0.10); IMMATURE GRAN PERCENT AUTO 1 % (0-1); LYMPHOCYTES ABSOLUTE AUTO 2.46 K/mm3 (0.84-5.20); LYMPHOCYTES PERCENT AUTO 18 % (21-46); MONOCYTES ABSOLUTE AUTO 1.43 K/mm3 (0.16-1.47); MONOCYTES PERCENT AUTO 11 % (4-13); Mean Corpuscular HGB 29.2 pg (26.0-34.0); Mean Corpuscular HGB Conc 34.5 g/dL (31.5-36.5); Mean Corpuscular Volume 85 fL (80-100); Mean Platelet Volume 9.7 fL (9.1-12.4); NEUTROPHILS ABSOLUTE AUTO 8.87 K/mm3 (1.96-9.15); NEUTROPHILS PERCENT AUTO 65 % (41-73); Platelet Count 299 K/mm3 (150-400); RDW Coefficient Variation 15.1 % (11.7-14.2); RDW Standard Deviation 46.3 fL (35.1-46.3); Red Blood Cell Count 5.96 M/mm3 (4.30-5.90); White Blood Cell Count 13.59 K/mm3 (4.00-11.30)
[2023-04-05 20:15] VITALS: BP 111/68
[2023-04-05] MEDS ORDERED: NS 1,000 ML IV SCH (20:20)
[2023-04-05] MEDS ORDERED: Meclizine HCl 25 MG Tab PO ONE (20:25)
[2023-04-05] MEDS ORDERED: AMOCLA875 PO (21:34)
== END 2023-04-05 21:50 | disposition home or self-care (01) ==
LOC: ER 16:29
PROVIDERS: Emergency Medicine
DX: R42 Dizziness and giddiness (principal); H53.123 Transient visual loss, bilateral; K04.7 Periapical abscess without sinus; Z87.891 Personal history of nicotine dependence; I10 Essential (primary) hypertension; I25.2 Old myocardial infarction; Z79.82 Long term (current) use of aspirin; Z79.02 Long term (current) use of antithrombotics/antiplatelets; Z79.899 Other long term (current) drug therapy
CPT/HCPCS: 70450; 71045; 80053; 83880; 84484; 85025; 93005; 93010; 99285-25; A9270; J7030

== ENCOUNTER 2024-02-06 01:44 | Emergency (ER) | payer OTHER ==
[~2024-02-06] VITALS: Ht 177.8 cm; Wt 113.4 kg
[~2024-02-06 01:44] MED LIST changes: +AMIT75 PO; +Aspir 8181 MG PO; +CARVEDILOL6.25 MG PO; +ENTRESTO 24 MG1 EAC3 PO; +Lasix80 MG PO; +Nicoderm Cq1 EACH TOP; +SOAANZ20 M3 PO
[2024-02-06] MEDS ORDERED: Ondansetron HCl 2 MG / ML 2ML Vial IV PRN (02:00)
[2024-02-06] MEDS ORDERED: Ipratropium/Albuterol SulF 2.5-0.5MG/3 ML Amp INH ONE (02:05)
[2024-02-06 02:43] LABS: BASOPHILS ABSOLUTE AUTO 0.09 K/mm3 (0.00-0.23); BASOPHILS PERCENT AUTO 1 % (0-2); EOSINOPHILS ABSOLUTE AUTO 0.37 K/mm3 (0.00-0.68); EOSINOPHILS PERCENT AUTO 4 % (0-6); Hematocrit 39.1 % (37.0-53.0); Hemoglobin 13.2 g/dL (13.5-17.5); IMMATURE GRAN ABSOLUTE AUTO 0.06 K/mm3 (0.00-0.10); IMMATURE GRAN PERCENT AUTO 1 % (0-1); LYMPHOCYTES PERCENT AUTO 20 % (21-46); MONOCYTES ABSOLUTE AUTO 1.16 K/mm3 (0.16-1.47); MONOCYTES PERCENT AUTO 14 % (4-13); Mean Corpuscular HGB 29.8 pg (26.0-34.0); Mean Corpuscular HGB Conc 33.8 g/dL (31.5-36.5); Mean Corpuscular Volume 88 fL (80-100); Mean Platelet Volume 9.7 fL (9.1-12.4); NEUTROPHILS ABSOLUTE AUTO 5.15 K/mm3 (1.96-9.15); NEUTROPHILS PERCENT AUTO 60 % (41-73); Platelet Count 251 K/mm3 (150-400); RDW Standard Deviation 51.6 fL (35.1-46.3); Red Blood Cell Count 4.43 M/mm3 (4.30-5.90); White Blood Cell Count 8.53 K/mm3 (4.00-11.30)
[2024-02-06 03:01] LABS: Albumin/Globulin Ratio 0.7 (0.8-1.8); Bilirubin, Total 0.5 mg/dL (0.1-1.0); Bun/Creatinine Ratio 14.1 (12.0-20.0); Calcium, Blood 8.4 mg/dL (8.5-10.1); Creatinine, Blood 1.35 mg/dL (0.60-1.20); Globulin, Blood 4.1 g/dL (2.2-4.0); Potassium, Blood 3.7 mmol/L (3.5-5.5); Total Protein, Blood 7.1 g/dL (6.4-8.2)
[2024-02-06 03:24] LABS: Influenza A, PCR NEGATIVE (NEGATIVE); Influenza B, PCR NEGATIVE (NEGATIVE); Resp Syncytial Virus, PCR NEGATIVE (NEGATIVE); SARS-Cov-2 (COVID-19) PCR, MMC NEGATIVE (NEGATIVE)
[2024-02-06] MEDS ORDERED: Furosemide 10 MG/ML 4ML Vial IV ONE (04:05)
[2024-02-06] MEDS ORDERED: Ondansetron HCl 2 MG / ML 2ML Vial IV ONE (04:15)
[2024-02-06] MEDS ORDERED: Furosemide 10 MG/ML 4ML Vial ONE (04:18)
[2024-02-06 05:15] VITALS: BP 110/83
[2024-02-06] MEDS ORDERED: FURO20 PO (05:36)
== END 2024-02-06 05:46 | disposition home or self-care (01) ==
LOC: ER 01:44
PROVIDERS: Emergency Medicine
DX: I11.0 Hypertensive heart disease with heart failure (principal); I50.20 Unspecified systolic (congestive) heart failure; G47.33 Obstructive sleep apnea (adult) (pediatric); I25.2 Old myocardial infarction; F17.210 Nicotine dependence, cigarettes, uncomplicated; Z86.73 Personal history of transient ischemic attack (TIA), and cerebral infarction without residual deficits; Z79.82 Long term (current) use of aspirin; Z79.02 Long term (current) use of antithrombotics/antiplatelets; Z79.899 Other long term (current) drug therapy
CPT/HCPCS: 0241U; 71045; 71260; 80053; 83690; 83880; 84484; 85025; 85379; 93005; 93010; 94640; 94664; 96374-59; 96375-59; 96376-59; 99285-25; J1940; J2405; Q9967

== ENCOUNTER 2024-04-12 05:53 | Emergency (ER) | payer OTHER ==
[~2024-04-12] VITALS: Ht 177.8 cm; Wt 113.4 kg
[2024-04-12 06:46] LABS: BASOPHILS ABSOLUTE AUTO 0.12 K/mm3 (0.00-0.23); BASOPHILS PERCENT AUTO 1 % (0-2); EOSINOPHILS ABSOLUTE AUTO 0.63 K/mm3 (0.00-0.68); EOSINOPHILS PERCENT AUTO 5 % (0-6); Hematocrit 44.1 % (37.0-53.0); Hemoglobin 15.4 g/dL (13.5-17.5); IMMATURE GRAN ABSOLUTE AUTO 0.13 K/mm3 (0.00-0.10); IMMATURE GRAN PERCENT AUTO 1 % (0-1); LYMPHOCYTES ABSOLUTE AUTO 2.25 K/mm3 (0.84-5.20); LYMPHOCYTES PERCENT AUTO 18 % (21-46); MONOCYTES ABSOLUTE AUTO 0.68 K/mm3 (0.16-1.47); MONOCYTES PERCENT AUTO 5 % (4-13); Mean Corpuscular HGB 29.7 pg (26.0-34.0); Mean Corpuscular HGB Conc 34.9 g/dL (31.5-36.5); Mean Corpuscular Volume 85 fL (80-100); NEUTROPHILS ABSOLUTE AUTO 8.99 K/mm3 (1.96-9.15); NEUTROPHILS PERCENT AUTO 70 % (41-73); Platelet Count 323 K/mm3 (150-400); RDW Coefficient Variation 15.3 % (11.7-14.2); RDW Standard Deviation 47.3 fL (35.1-46.3); Red Blood Cell Count 5.18 M/mm3 (4.30-5.90)
[2024-04-12 07:13] LABS: Albumin, Blood 3.2 g/dL (3.4-5.0); Albumin/Globulin Ratio 0.7 (0.8-1.8); Bilirubin, Total 0.4 mg/dL (0.1-1.0); Bun/Creatinine Ratio 18.9 (12.0-20.0); Calcium, Blood 8.7 mg/dL (8.5-10.1); Creatinine, Blood 1.06 mg/dL (0.60-1.20); Globulin, Blood 4.6 g/dL (2.2-4.0); Total Protein, Blood 7.8 g/dL (6.4-8.2)
[2024-04-12 07:29] LABS: CORONAVIRUS COVID-19 AG Negative (NEGATIVE); INFLUENZA A AG Negative (NEGATIVE); INFLUENZA B AG Negative (NEGATIVE)
[2024-04-12] MEDS ORDERED: Furosemide 10 MG/ML 10ML Vial IV ONE (09:35)
[2024-04-12] MEDS ORDERED: AZIT250 PO (12:09)
[2024-04-12] MEDS ORDERED: BENZ100A PO (12:09)
[2024-04-12 12:37] VITALS: BP 129/83
== END 2024-04-12 12:44 | disposition home or self-care (01) ==
LOC: ER 05:53
PROVIDERS: Emergency Medicine
DX: J20.9 Acute bronchitis, unspecified (principal); I11.0 Hypertensive heart disease with heart failure; I50.20 Unspecified systolic (congestive) heart failure; I25.2 Old myocardial infarction; F17.200 Nicotine dependence, unspecified, uncomplicated; Z79.82 Long term (current) use of aspirin; Z79.899 Other long term (current) drug therapy; Z95.5 Presence of coronary angioplasty implant and graft
CPT/HCPCS: 71046; 80053; 83880; 84484; 85025; 87428-QW; 93005; 93010; 96374; 99285-25; J1940

== ENCOUNTER 2024-04-23 17:31 | Emergency (ER) | payer OTHER ==
[~2024-04-23] VITALS: Ht 177.8 cm; Wt 113.4 kg
[~2024-04-23 17:31] MED LIST changes: +BENZ100A PO
[2024-04-23 18:27] LABS: BASOPHILS ABSOLUTE AUTO 0.14 K/mm3 (0.00-0.23); BASOPHILS PERCENT AUTO 1 % (0-2); EOSINOPHILS ABSOLUTE AUTO 0.66 K/mm3 (0.00-0.68); EOSINOPHILS PERCENT AUTO 5 % (0-6); Hematocrit 41.4 % (37.0-53.0); Hemoglobin 14.7 g/dL (13.5-17.5); IMMATURE GRAN ABSOLUTE AUTO 0.18 K/mm3 (0.00-0.10); IMMATURE GRAN PERCENT AUTO 1 % (0-1); LYMPHOCYTES ABSOLUTE AUTO 2.91 K/mm3 (0.84-5.20); LYMPHOCYTES PERCENT AUTO 22 % (21-46); MONOCYTES ABSOLUTE AUTO 1.28 K/mm3 (0.16-1.47); MONOCYTES PERCENT AUTO 10 % (4-13); Mean Corpuscular HGB 29.8 pg (26.0-34.0); Mean Corpuscular HGB Conc 35.5 g/dL (31.5-36.5); Mean Corpuscular Volume 84 fL (80-100); NEUTROPHILS ABSOLUTE AUTO 8.09 K/mm3 (1.96-9.15); NEUTROPHILS PERCENT AUTO 61 % (41-73); RDW Coefficient Variation 14.8 % (11.7-14.2); RDW Standard Deviation 44.6 fL (35.1-46.3); Red Blood Cell Count 4.94 M/mm3 (4.30-5.90); White Blood Cell Count 13.26 K/mm3 (4.00-11.30)
[2024-04-23 18:47] LABS: Albumin, Blood 3.1 g/dL (3.4-5.0); Albumin/Globulin Ratio 0.8 (0.8-1.8); Bilirubin, Total 0.4 mg/dL (0.1-1.0); Bun/Creatinine Ratio 12.7 (12.0-20.0); Creatinine, Blood 1.02 mg/dL (0.60-1.20); Globulin, Blood 4.1 g/dL (2.2-4.0); Potassium, Blood 3.7 mmol/L (3.5-5.5); Total Protein, Blood 7.2 g/dL (6.4-8.2)
[2024-04-23 18:49] LABS: Mean Platelet Volume 10.2 fL (9.1-12.4); Platelet Count 264 K/mm3 (150-400)
[2024-04-23] MEDS ORDERED: Furosemide 10 MG/ML 10ML Vial IV ONE (19:35)
[2024-04-23] MEDS ORDERED: Nitroglycerin 0.4 MG SUBL SL ONE (19:40)
[2024-04-23 20:36] LABS: Source, Urine Clean Catch
[2024-04-23 20:58] LABS: Appearance, Urine Clear (Clear); Bilirubin, Urine Neg (Neg); Blood, Urine Neg (Neg); Color, Urine Yellow (P-Yellow); Glucose Qualitative, Urine Neg (Neg); Ketones, Urine Neg (Neg); Leukocyte Esterase, Urine Neg (Neg); Nitrite, Urine Neg (Neg); Protein, Urine Neg (Neg); Specific Gravity, Urine 1.015 (1.003-1.022); Urobilinogen, Urine NORM (Normal); pH, Urine 6.5 (5.0-8.0)
[2024-04-23] MEDS ORDERED: LASIX40 MG PO (22:01)
[2024-04-23 22:37] VITALS: BP 146/100
== END 2024-04-23 22:37 | disposition home or self-care (01) ==
LOC: ER 17:31
PROVIDERS: Student in an Organized Health Care Education/Training Program
DX: I11.0 Hypertensive heart disease with heart failure (principal); I50.20 Unspecified systolic (congestive) heart failure; F15.90 Other stimulant use, unspecified, uncomplicated; F17.210 Nicotine dependence, cigarettes, uncomplicated; Z86.73 Personal history of transient ischemic attack (TIA), and cerebral infarction without residual deficits; I25.2 Old myocardial infarction; G47.33 Obstructive sleep apnea (adult) (pediatric); Z79.82 Long term (current) use of aspirin; Z79.02 Long term (current) use of antithrombotics/antiplatelets; Z79.899 Other long term (current) drug therapy
CPT/HCPCS: 36415; 71046; 71260; 74177; 80053; 81003; 83880; 84484; 85025; 93005; 93010; 96374-59; 99285-25; A9270; J1940; Q9967

== ENCOUNTER 2024-05-01 08:00 | Emergency (ER) | payer OTHER ==
[~2024-05-01] VITALS: Ht 162.6 cm; Wt 113.4 kg
[~2024-05-01 08:00] MED LIST changes: +LASIX40 MG PO
[2024-05-01 08:53] LABS: BASOPHILS PERCENT AUTO 1 % (0-2); EOSINOPHILS ABSOLUTE AUTO 0.58 K/mm3 (0.00-0.68); EOSINOPHILS PERCENT AUTO 5 % (0-6); Hematocrit 40.8 % (37.0-53.0); Hemoglobin 13.9 g/dL (13.5-17.5); IMMATURE GRAN PERCENT AUTO 1 % (0-1); LYMPHOCYTES ABSOLUTE AUTO 2.38 K/mm3 (0.84-5.20); LYMPHOCYTES PERCENT AUTO 19 % (21-46); MONOCYTES ABSOLUTE AUTO 1.06 K/mm3 (0.16-1.47); MONOCYTES PERCENT AUTO 9 % (4-13); Mean Corpuscular HGB 29.4 pg (26.0-34.0); Mean Corpuscular HGB Conc 34.1 g/dL (31.5-36.5); Mean Corpuscular Volume 86 fL (80-100); Mean Platelet Volume 10.5 fL (9.1-12.4); NEUTROPHILS ABSOLUTE AUTO 8.17 K/mm3 (1.96-9.15); NEUTROPHILS PERCENT AUTO 66 % (41-73); Platelet Count 292 K/mm3 (150-400); RDW Coefficient Variation 16.5 % (11.7-14.2); RDW Standard Deviation 49.1 fL (35.1-46.3); Red Blood Cell Count 4.72 M/mm3 (4.30-5.90); White Blood Cell Count 12.39 K/mm3 (4.00-11.30)
[2024-05-01 09:07] LABS: Albumin, Blood 3.1 g/dL (3.4-5.0); Albumin/Globulin Ratio 0.8 (0.8-1.8); Bilirubin, Total 0.4 mg/dL (0.1-1.0); Bun/Creatinine Ratio 11.8 (12.0-20.0); Calcium, Blood 8.3 mg/dL (8.5-10.1); Creatinine, Blood 1.1 mg/dL (0.60-1.20); Globulin, Blood 4.1 g/dL (2.2-4.0); Potassium, Blood 3.5 mmol/L (3.5-5.5); Total Protein, Blood 7.2 g/dL (6.4-8.2)
[2024-05-01 13:34] LABS: Influenza A, PCR NEGATIVE (NEGATIVE); Influenza B, PCR NEGATIVE (NEGATIVE); Resp Syncytial Virus, PCR NEGATIVE (NEGATIVE); SARS-Cov-2 (COVID-19) PCR, MMC NEGATIVE (NEGATIVE)
[2024-05-01] MEDS ORDERED: SOAANZ40 M1 PO (14:36)
[2024-05-01 14:40] VITALS: BP 123/87
== END 2024-05-01 14:41 | disposition home or self-care (01) ==
LOC: ER 08:00
PROVIDERS: Student in an Organized Health Care Education/Training Program
DX: I11.0 Hypertensive heart disease with heart failure (principal); I50.9 Heart failure, unspecified; F17.210 Nicotine dependence, cigarettes, uncomplicated; Z79.82 Long term (current) use of aspirin; Z79.899 Other long term (current) drug therapy; Z79.2 Long term (current) use of antibiotics
CPT/HCPCS: 0241U; 71046; 80053; 83880; 84484; 85025; 93005; 93010; 99285-25

== ENCOUNTER 2024-05-03 05:43 | Inpatient (IN) | payer OTHER ==
[~2024-05-03] VITALS: Ht 177.8 cm; Wt 111.9 kg
[~2024-05-03 05:43] MED LIST changes: +SOAANZ40 M1 PO
[2024-05-03 06:19] LABS: BASOPHILS ABSOLUTE AUTO 0.11 K/mm3 (0.00-0.23); BASOPHILS PERCENT AUTO 1 % (0-2); EOSINOPHILS ABSOLUTE AUTO 0.59 K/mm3 (0.00-0.68); EOSINOPHILS PERCENT AUTO 4 % (0-6); Hematocrit 39.2 % (37.0-53.0); Hemoglobin 13.1 g/dL (13.5-17.5); IMMATURE GRAN ABSOLUTE AUTO 0.11 K/mm3 (0.00-0.10); IMMATURE GRAN PERCENT AUTO 1 % (0-1); LYMPHOCYTES ABSOLUTE AUTO 2.64 K/mm3 (0.84-5.20); LYMPHOCYTES PERCENT AUTO 18 % (21-46); MONOCYTES ABSOLUTE AUTO 1.37 K/mm3 (0.16-1.47); MONOCYTES PERCENT AUTO 9 % (4-13); Mean Corpuscular HGB 29.2 pg (26.0-34.0); Mean Corpuscular HGB Conc 33.4 g/dL (31.5-36.5); Mean Corpuscular Volume 88 fL (80-100); Mean Platelet Volume 10.6 fL (9.1-12.4); NEUTROPHILS ABSOLUTE AUTO 10.01 K/mm3 (1.96-9.15); NEUTROPHILS PERCENT AUTO 68 % (41-73); Platelet Count 270 K/mm3 (150-400); RDW Coefficient Variation 16.3 % (11.7-14.2); RDW Standard Deviation 50.7 fL (35.1-46.3); Red Blood Cell Count 4.48 M/mm3 (4.30-5.90); White Blood Cell Count 14.83 K/mm3 (4.00-11.30)
[2024-05-03 06:38] LABS: Albumin/Globulin Ratio 0.7 (0.8-1.8); Bun/Creatinine Ratio 13.8 (12.0-20.0); Calcium, Blood 8.2 mg/dL (8.5-10.1); Creatinine, Blood 1.3 mg/dL (0.60-1.20); Globulin, Blood 4.3 g/dL (2.2-4.0); Potassium, Blood 3.4 mmol/L (3.5-5.5); Total Protein, Blood 7.3 g/dL (6.4-8.2)
[2024-05-03 06:50] LABS: U Amphetamine Screen DETECTED; U Barbituate Screen Not Detected; U Benzodiazapine Screen Not Detected; U Buprenorphine Screen Not Detected; U Cannabinoids Screen Not Detected; U Cocaine Screen Not Detected; U Methadone Screen Not Detected; U Methamphetamine Screen DETECTED; U Opiates Screen Not Detected; U Oxycodone Screen Not Detected; U Phencyclidine Screen Not Detected
[2024-05-03] MEDS ORDERED: Azithromycin 500 MG in NS 250 ML IV ONE (07:05)
[2024-05-03] MEDS ORDERED: CefTRIAXone Sodium 1,000 MG in NS 100 ML IV ONE (07:05)
[2024-05-03] MEDS ORDERED: FLU VACC TS2024-25(6MOS UP)/PF 45 MCG/0.5 ML SYRINGE IM SCH (08:00)
[2024-05-03] MEDS ORDERED: Amitriptyline HCl 25 MG Tab PO PRN (08:00)
[2024-05-03] MEDS ORDERED: Carvedilol 6.25 MG Tab PO SCH (08:00)
[2024-05-03] MEDS ORDERED: Isosorbide Mononitrate 30 MG TABCR PO SCH (09:00)
[2024-05-03] MEDS ORDERED: Potassium Chloride 20 MEQ TabCR PO SCH (09:00)
[2024-05-03] MEDS ORDERED: Sacubitril/Valsartan 24 MG-26 MG Tab PO SCH (09:00)
[2024-05-03] MEDS ORDERED: Azithromycin 500 MG in NS 250 ML IV SCH (09:00)
[2024-05-03] MEDS ORDERED: Aspirin 81 MG TabEC PO SCH (09:00)
[2024-05-03] MEDS ORDERED: Clopidogrel Bisulfate 75 MG Tab PO SCH (09:00)
[2024-05-03] MEDS ORDERED: CefTRIAXone Sodium 1,000 MG in NS 100 ML IV SCH (09:00)
[2024-05-03] MEDS ORDERED: Ondansetron HCl 2 MG / ML 2ML Vial IV PRN (10:45)
[2024-05-03 15:28] VITALS: BP 122/89
[2024-05-03] MEDS ORDERED: FURO40 PO (15:34)
[2024-05-03] MEDS ORDERED: Albuterol 2.5 MG/3 ML VIAL INH PRN (17:55)
[2024-05-03] MEDS ORDERED: Acetaminophen 325 MG TABLET PO PRN (18:00)
[2024-05-03] MEDS ORDERED: Simethicone 80 MG Chew PO PRN (18:00)
[2024-05-03 18:15] VITALS: BP 97/69
--- NOTE | 2024-05-03 18:19 | NUR ---
SHIFT SUMMARY PT A&OX4, AMB IND, TOLERATING PO, VOIDING, AND PAIN MANAGED PER EMAR. PT BP LOW, MAP 78, COREG NOT GIVEN, PT ASYMPTOMATIC. PT C/O BELCHING THAT WAS MEDICATED PER EMAR. 1L O2 OFFERED FOR SOB, BUT REFUSED. PT STATED HE WAS A MOUTH BREATHER. OXY MASK OFFERED, BUT REFUSED DUE TO CLAUSTROPHOBIA. THIS RN NOTIFIED RT TO REQUEST BREATHING TX. CALL LIGHT WITHIN REACH.
[2024-05-03 19:17] VITALS: BP 98/72
[2024-05-03] MEDS ORDERED: Guaifenesin/Dextromethorphan Syrup 5 ML UDC PO PRN (22:40)
[2024-05-03 23:44] VITALS: BP 106/77
[2024-05-04 04:19] VITALS: BP 121/56
[2024-05-04 05:50] LABS: BASOPHILS ABSOLUTE AUTO 0.11 K/mm3 (0.00-0.23); BASOPHILS PERCENT AUTO 1 % (0-2); EOSINOPHILS ABSOLUTE AUTO 0.64 K/mm3 (0.00-0.68); EOSINOPHILS PERCENT AUTO 5 % (0-6); Hematocrit 40.4 % (37.0-53.0); Hemoglobin 13.5 g/dL (13.5-17.5); IMMATURE GRAN ABSOLUTE AUTO 0.08 K/mm3 (0.00-0.10); IMMATURE GRAN PERCENT AUTO 1 % (0-1); LYMPHOCYTES ABSOLUTE AUTO 2.54 K/mm3 (0.84-5.20); LYMPHOCYTES PERCENT AUTO 21 % (21-46); MONOCYTES ABSOLUTE AUTO 0.95 K/mm3 (0.16-1.47); MONOCYTES PERCENT AUTO 8 % (4-13); Mean Corpuscular HGB 28.9 pg (26.0-34.0); Mean Corpuscular HGB Conc 33.4 g/dL (31.5-36.5); Mean Corpuscular Volume 87 fL (80-100); Mean Platelet Volume 10.5 fL (9.1-12.4); NEUTROPHILS ABSOLUTE AUTO 7.81 K/mm3 (1.96-9.15); NEUTROPHILS PERCENT AUTO 64 % (41-73); Platelet Count 272 K/mm3 (150-400); RDW Coefficient Variation 15.9 % (11.7-14.2); RDW Standard Deviation 49.4 fL (35.1-46.3); Red Blood Cell Count 4.67 M/mm3 (4.30-5.90); White Blood Cell Count 12.13 K/mm3 (4.00-11.30)
[2024-05-04 06:19] LABS: Albumin, Blood 2.9 g/dL (3.4-5.0); Albumin/Globulin Ratio 0.7 (0.8-1.8); Bilirubin, Total 1.3 mg/dL (0.1-1.0); Bun/Creatinine Ratio 16.7 (12.0-20.0); Calcium, Blood 8.7 mg/dL (8.5-10.1); Creatinine, Blood 1.08 mg/dL (0.60-1.20); Globulin, Blood 4.3 g/dL (2.2-4.0); Potassium, Blood 3.4 mmol/L (3.5-5.5); Total Protein, Blood 7.2 g/dL (6.4-8.2)
--- NOTE | 2024-05-04 06:21 | NUR ---
SHIFT SUMMARY PT HAS BEEN RESTING IN BED OVERNIGHT. PT HAS BEEN AOX4, CALM AND COOPERATIVE. PT HAS HAD EPISODES OF NAUSEA THROUGHOUT THE NIGHT THAT HAVE BEEN BROUGHT ON BY COUGHING FITS. COUGHING RELIEVED BY ROBITUSSIN. DURING NAUSEA EPISODES, PT ATTEMPTS TO VOMIT, BUT JUST GAGS AND SPITS OUT PHLEGM. PT HAS BEEN ON TELEMETRY. HE HAS BEEN INDEPENDENT TO BATHROOM. PT HAS HAD NO COMPLAINTS. NO ACUTE EVENTS OVERNIGHT.
[2024-05-04 07:51] VITALS: BP 103/88
[2024-05-04] MEDS ORDERED: CefTRIAXone Sodium 1,000 MG in NS 100 ML IV SCH (09:00)
[2024-05-04] MEDS ORDERED: Azithromycin 500 MG in NS 250 ML IV SCH (09:00)
[2024-05-04] MEDS ORDERED: Enoxaparin 40 MG/0.4 ML SYR SC SCH (09:00)
[2024-05-04] MEDS ORDERED: NS 250 ML IV PRN (09:55)
[2024-05-04 15:31] VITALS: BP 92/71
--- NOTE | 2024-05-04 17:57 | NUR ---
SHIFT SUMMARY PT CONT TO BE SOB AND REFUSE O2. PT AGREEABLE TO BREATHING TX. IV ABX GIVEN PER EMAR. PT BP LOW, BUT ASYMPTOMATIC. NO ACUTE CHANGES. CALL LIGHT WITHIN REACH.
[2024-05-04 18:14] VITALS: BP 107/79
[2024-05-04 19:54] VITALS: BP 129/98
[2024-05-05] VITALS: BP 106/77
[2024-05-05 04:27] VITALS: BP 87/66
--- NOTE | 2024-05-05 05:58 | NUR ---
SHIFT SUMMARY; PATIENT SLEPT IN SHORT INTERVALS. COUGHING SOMETIMES CAUSING EMESIS. TELE MOSTLY SR @ 83, SHORT BURST OF WHAT LOOKS LIKE VT 5 SECONDS. PATIENT DENIES CP, DOES HAVE ABD PAIN.
[2024-05-05 07:54] VITALS: BP 119/93
[2024-05-05] MEDS ORDERED: Furosemide 40 MG Tab PO SCH (09:00)
[2024-05-05 09:31] LABS: BASOPHILS ABSOLUTE AUTO 0.09 K/mm3 (0.00-0.23); BASOPHILS PERCENT AUTO 1 % (0-2); EOSINOPHILS ABSOLUTE AUTO 0.38 K/mm3 (0.00-0.68); EOSINOPHILS PERCENT AUTO 3 % (0-6); Hematocrit 40.4 % (37.0-53.0); Hemoglobin 13.9 g/dL (13.5-17.5); IMMATURE GRAN ABSOLUTE AUTO 0.12 K/mm3 (0.00-0.10); IMMATURE GRAN PERCENT AUTO 1 % (0-1); LYMPHOCYTES ABSOLUTE AUTO 2.23 K/mm3 (0.84-5.20); LYMPHOCYTES PERCENT AUTO 19 % (21-46); MONOCYTES ABSOLUTE AUTO 0.89 K/mm3 (0.16-1.47); MONOCYTES PERCENT AUTO 7 % (4-13); Mean Corpuscular HGB 29.6 pg (26.0-34.0); Mean Corpuscular HGB Conc 34.4 g/dL (31.5-36.5); Mean Corpuscular Volume 86 fL (80-100); NEUTROPHILS ABSOLUTE AUTO 8.32 K/mm3 (1.96-9.15); NEUTROPHILS PERCENT AUTO 69 % (41-73); Platelet Count 294 K/mm3 (150-400); RDW Coefficient Variation 15.9 % (11.7-14.2); RDW Standard Deviation 48.8 fL (35.1-46.3); Red Blood Cell Count 4.69 M/mm3 (4.30-5.90); White Blood Cell Count 12.03 K/mm3 (4.00-11.30)
[2024-05-05 11:08] VITALS: BP 113/71
[2024-05-05 13:35] LABS: Magnesium, Blood 2.3 mg/dL (1.6-2.4)
[2024-05-05 13:36] LABS: Albumin, Blood 2.9 g/dL (3.4-5.0); Albumin/Globulin Ratio 0.7 (0.8-1.8); Bilirubin, Total 1.1 mg/dL (0.1-1.0); Bun/Creatinine Ratio 18.8 (12.0-20.0); Calcium, Blood 8.8 mg/dL (8.5-10.1); Creatinine, Blood 1.17 mg/dL (0.60-1.20); Globulin, Blood 4.2 g/dL (2.2-4.0); Phosphorus, Blood 4.1 mg/dL (2.5-4.9); Potassium, Blood 3.9 mmol/L (3.5-5.5); Total Protein, Blood 7.1 g/dL (6.4-8.2)
[2024-05-05 15:48] VITALS: BP 126/70
--- NOTE | 2024-05-05 17:52 | NUR ---
PT HAS HAD NOT ACUTE CHANGES.PT AOX4 AND HAS SOB VERY HARD TO BE COMFORTABLE. PT BELCHES FREQUENTLY AND WAS TREATED PER EMAR FOR NAUSEA. WHILE RECIEVING AMOXICILLIAN PT BECAME VERY UNCOMFORTABLE AND BLECHED FREQUENTLY STATED HE FELT TERRIBLE AND SAID IT WAS THIS MEDICATION WHICH FELT BAD. PT WAS ALMOST DONE WITH MED AND DR MORFIN NOTIFIED. MED WAS STOPPED. PT CURRENTLY RESTING IN BED CALL LIGHT WITHIN REACH WILL CONTINUE TO MONITOR.
[2024-05-05 19:45] VITALS: BP 84/64
[2024-05-06 00:08] VITALS: BP 101/86
[2024-05-06 04:41] VITALS: BP 125/86
--- NOTE | 2024-05-06 06:19 | NUR ---
SHIFT SUMMARY PT ALERT AND ORIENTED TIMES 4 . PT IS ADMITTED FOR INCREASED SOB EPISODES.. PT IS INDEPENDENT TO TOILET AND ABLE TO AMBULATE AROUND ROOM. PT CONTINUES TO PRESENT LABORED BREATHING AND RESTLESSNESS. PT DENIES PAIN. PT HAD TWO BM S LAST NIGHT AND ABLE TO URINATE. BED IN LOW POSITION, RAILS TIMES TWO, CALL LIGHT WITHIN REACH.
[2024-05-06 07:31] VITALS: BP 138/124
[2024-05-06 08:07] LABS: BASOPHILS ABSOLUTE AUTO 0.11 K/mm3 (0.00-0.23); BASOPHILS PERCENT AUTO 1 % (0-2); EOSINOPHILS ABSOLUTE AUTO 0.28 K/mm3 (0.00-0.68); EOSINOPHILS PERCENT AUTO 3 % (0-6); Hematocrit 38.2 % (37.0-53.0); Hemoglobin 12.9 g/dL (13.5-17.5); IMMATURE GRAN ABSOLUTE AUTO 0.12 K/mm3 (0.00-0.10); IMMATURE GRAN PERCENT AUTO 1 % (0-1); LYMPHOCYTES ABSOLUTE AUTO 2.59 K/mm3 (0.84-5.20); LYMPHOCYTES PERCENT AUTO 23 % (21-46); MONOCYTES ABSOLUTE AUTO 1.15 K/mm3 (0.16-1.47); MONOCYTES PERCENT AUTO 10 % (4-13); Mean Corpuscular HGB 29.5 pg (26.0-34.0); Mean Corpuscular HGB Conc 33.8 g/dL (31.5-36.5); Mean Corpuscular Volume 87 fL (80-100); Mean Platelet Volume 10.9 fL (9.1-12.4); NEUTROPHILS ABSOLUTE AUTO 6.96 K/mm3 (1.96-9.15); NEUTROPHILS PERCENT AUTO 62 % (41-73); Platelet Count 296 K/mm3 (150-400); RDW Coefficient Variation 15.9 % (11.7-14.2); RDW Standard Deviation 49.4 fL (35.1-46.3); Red Blood Cell Count 4.37 M/mm3 (4.30-5.90); White Blood Cell Count 11.21 K/mm3 (4.00-11.30)
[2024-05-06 08:20] LABS: Bun/Creatinine Ratio 18.9 (12.0-20.0); Calcium, Blood 8.4 mg/dL (8.5-10.1); Creatinine, Blood 1.48 mg/dL (0.60-1.20)
[2024-05-06 13:09] LABS: Base Excess Venous -1.4 mmol/L; Bicarbonate Venous 23.1 mmol/L (24.0-30.0); PCO2 Venous 38.1 mmHg (38-42)
[2024-05-06 14:46] VITALS: BP 147/123
--- NOTE | 2024-05-06 16:07 | NUR ---
PT AOX4 AND TRYS TO BE COOPERATIVE OF CARE. PT CONTINUES TO NOT BE ABLE TO FEEL COMFORTABLE AND TURNS AND FLOPS AROUND IN BED CONSTANTLY UNHOOKING TELE WITH HIS EFFORTS TO GET COMFORTABLE. PT BELCHING AND MOANING ALL DAY. DR MORFIN WAS NOTIFIED OF THIS CONSTANT ISSUE AND ORDERED IMAGING AND TEST. CALL LIGHT IS IN REACH WILL CONTINUE TO MONITOR.
[2024-05-06 19:31] VITALS: BP 103/87
[2024-05-06 23:45] VITALS: BP 125/69
[2024-05-07] MEDS ORDERED: OxyCODONE HCL 5 MG TAB PO PRN ×2 (00:20→23:55)
[2024-05-07 04:09] VITALS: BP 109/82
[2024-05-07 07:29] LABS: Hematocrit 39.3 % (37.0-53.0); Mean Corpuscular HGB 29.3 pg (26.0-34.0); Mean Corpuscular HGB Conc 33.1 g/dL (31.5-36.5); Mean Corpuscular Volume 89 fL (80-100); Mean Platelet Volume 10.8 fL (9.1-12.4); NRBC ABSOLUTE 0.05 K/mm3 (0.00-0.02); NRBC Auto 0.5 /100 WBC (0.0-0.2); Platelet Count 284 K/mm3 (150-400); RDW Standard Deviation 50.6 fL (35.1-46.3); Red Blood Cell Count 4.43 M/mm3 (4.30-5.90); White Blood Cell Count 11.04 K/mm3 (4.00-11.30)
[2024-05-07 07:47] VITALS: BP 136/95
[2024-05-07 07:58] LABS: Albumin, Blood 2.9 g/dL (3.4-5.0); Albumin/Globulin Ratio 0.7 (0.8-1.8); Bilirubin, Total 1.4 mg/dL (0.1-1.0); Bun/Creatinine Ratio 21.2 (12.0-20.0); Calcium, Blood 8.2 mg/dL (8.5-10.1); Creatinine, Blood 1.37 mg/dL (0.60-1.20); Globulin, Blood 4.1 g/dL (2.2-4.0); Potassium, Blood 4.8 mmol/L (3.5-5.5)
[2024-05-07 16:51] VITALS: BP 104/60
--- NOTE | 2024-05-07 17:26 | NUR ---
SHIFT SUMMARY PATIENT IN BED MOST OF THIS SHIFT. ABLE TO GET UP TO BATHROOM AND USE URINAL. HAD ONE VOID THAT WAS TEA COLORED. POWERGLIDE IN PLACE, DRAWS RED BLOOD. ON TELE, ROOM AIR. C/O ABDOMINAL PAIN, GOOD RELIEF WITH OXY. A/O X4. IN TO VISIT THIS SHIFT. ABLE TO MAKE NEEDS KNOWN. CALL LIGHT IN REACH.
[2024-05-07] MEDS ORDERED: Furosemide 10 MG/ML 4ML Vial IV SCH (18:00)
[2024-05-07 20:11] VITALS: BP 91/63
[2024-05-08 01:06] VITALS: BP 131/109
--- NOTE | 2024-05-08 03:56 | NUR ---
SHIFT SUMMARY PT ALERT AND ORIENTED TIMES 4 . PT IS ADMITTED FOR INCREASED SOB EPISODES.. PT IS INDEPENDENT TO TOILET AND ABLE TO AMBULATE AROUND ROOM. PT EXPRESSES THAT HE IS EXPERIENCING EXTREME ABDOMINAL PAIN. PT HAD TWO BM S LAST NIGHT AND ABLE TO URINATE. OBTAINED ORDER FOR OXYBED IN LOW POSITION, RAILS TIMES TWO, CALL LIGHT WITHIN REACH.
[2024-05-08 04:10] VITALS: BP 110/68
[2024-05-08 06:07] LABS: BASOPHILS ABSOLUTE AUTO 0.12 K/mm3 (0.00-0.23); BASOPHILS PERCENT AUTO 1 % (0-2); EOSINOPHILS ABSOLUTE AUTO 0.42 K/mm3 (0.00-0.68); EOSINOPHILS PERCENT AUTO 4 % (0-6); Hematocrit 37.1 % (37.0-53.0); IMMATURE GRAN ABSOLUTE AUTO 0.26 K/mm3 (0.00-0.10); IMMATURE GRAN PERCENT AUTO 3 % (0-1); LYMPHOCYTES PERCENT AUTO 25 % (21-46); MONOCYTES PERCENT AUTO 10 % (4-13); Mean Corpuscular HGB 29.4 pg (26.0-34.0); Mean Corpuscular HGB Conc 32.3 g/dL (31.5-36.5); Mean Corpuscular Volume 91 fL (80-100); Mean Platelet Volume 11.1 fL (9.1-12.4); NEUTROPHILS ABSOLUTE AUTO 6.06 K/mm3 (1.96-9.15); NEUTROPHILS PERCENT AUTO 58 % (41-73); NRBC ABSOLUTE 0.11 K/mm3 (0.00-0.02); NRBC Auto 1.1 /100 WBC (0.0-0.2); Platelet Count 287 K/mm3 (150-400); RDW Coefficient Variation 16.5 % (11.7-14.2); RDW Standard Deviation 52.2 fL (35.1-46.3); Red Blood Cell Count 4.08 M/mm3 (4.30-5.90); White Blood Cell Count 10.46 K/mm3 (4.00-11.30)
[2024-05-08 06:32] LABS: Albumin, Blood 2.5 g/dL (3.4-5.0); Albumin/Globulin Ratio 0.7 (0.8-1.8); Bilirubin, Total 0.9 mg/dL (0.1-1.0); Bun/Creatinine Ratio 18.1 (12.0-20.0); Calcium, Blood 7.4 mg/dL (8.5-10.1); Creatinine, Blood 1.49 mg/dL (0.60-1.20); Globulin, Blood 3.6 g/dL (2.2-4.0); Total Protein, Blood 6.1 g/dL (6.4-8.2)
[2024-05-08 07:40] VITALS: BP 110/90
[2024-05-08 16:48] VITALS: BP 105/86
--- NOTE | 2024-05-08 18:53 | NUR ---
SHIFT SUMMARY PATIENT AMBULATING TO BATHROOM WELL, TOLERATING DIURETICS WELL, VSS. NO ACUTE CONCERNS. CONTINUES TO C/O ABD PAIN, GIVING OXY WITH GOOD RELIEF.
[2024-05-08 20:00] VITALS: BP 114/72
[2024-05-09] VITALS (7 sets, daily range): BP systolic 77–130; BP diastolic 56–90
[2024-05-09 06:54] LABS: BASOPHILS ABSOLUTE AUTO 0.14 K/mm3 (0.00-0.23); BASOPHILS PERCENT AUTO 1 % (0-2); EOSINOPHILS ABSOLUTE AUTO 0.39 K/mm3 (0.00-0.68); EOSINOPHILS PERCENT AUTO 4 % (0-6); Hematocrit 37.6 % (37.0-53.0); Hemoglobin 12.2 g/dL (13.5-17.5); IMMATURE GRAN ABSOLUTE AUTO 0.16 K/mm3 (0.00-0.10); IMMATURE GRAN PERCENT AUTO 1 % (0-1); LYMPHOCYTES ABSOLUTE AUTO 3.05 K/mm3 (0.84-5.20); LYMPHOCYTES PERCENT AUTO 27 % (21-46); MONOCYTES ABSOLUTE AUTO 1.17 K/mm3 (0.16-1.47); MONOCYTES PERCENT AUTO 10 % (4-13); Mean Corpuscular HGB 29.4 pg (26.0-34.0); Mean Corpuscular HGB Conc 32.4 g/dL (31.5-36.5); Mean Corpuscular Volume 91 fL (80-100); Mean Platelet Volume 10.8 fL (9.1-12.4); NEUTROPHILS ABSOLUTE AUTO 6.32 K/mm3 (1.96-9.15); NEUTROPHILS PERCENT AUTO 56 % (41-73); NRBC ABSOLUTE 0.09 K/mm3 (0.00-0.02); NRBC Auto 0.8 /100 WBC (0.0-0.2); Platelet Count 296 K/mm3 (150-400); RDW Coefficient Variation 16.3 % (11.7-14.2); RDW Standard Deviation 52.3 fL (35.1-46.3); Red Blood Cell Count 4.15 M/mm3 (4.30-5.90); White Blood Cell Count 11.23 K/mm3 (4.00-11.30)
[2024-05-09 07:11] LABS: Bun/Creatinine Ratio 19.9 (12.0-20.0); Calcium, Blood 7.7 mg/dL (8.5-10.1); Creatinine, Blood 1.36 mg/dL (0.60-1.20); Potassium, Blood 4.1 mmol/L (3.5-5.5)
--- NOTE | 2024-05-09 18:19 | NUR ---
PT WILL BE NPO STARTING 0600 WITH NO NARCOTICS ON 05.10 FOR HITA SCAN. PT HAD MINIMAL C/O PAIN SEE EMAR FOR FREQUENCY
[2024-05-10 04:11] VITALS: BP 100/83
[2024-05-10 06:47] LABS: BASOPHILS ABSOLUTE AUTO 0.13 K/mm3 (0.00-0.23); BASOPHILS PERCENT AUTO 1 % (0-2); EOSINOPHILS ABSOLUTE AUTO 0.49 K/mm3 (0.00-0.68); EOSINOPHILS PERCENT AUTO 4 % (0-6); Hematocrit 37.9 % (37.0-53.0); Hemoglobin 12.6 g/dL (13.5-17.5); IMMATURE GRAN ABSOLUTE AUTO 0.21 K/mm3 (0.00-0.10); IMMATURE GRAN PERCENT AUTO 2 % (0-1); LYMPHOCYTES ABSOLUTE AUTO 2.74 K/mm3 (0.84-5.20); LYMPHOCYTES PERCENT AUTO 25 % (21-46); MONOCYTES ABSOLUTE AUTO 1.29 K/mm3 (0.16-1.47); MONOCYTES PERCENT AUTO 12 % (4-13); Mean Corpuscular HGB 29.3 pg (26.0-34.0); Mean Corpuscular HGB Conc 33.2 g/dL (31.5-36.5); Mean Corpuscular Volume 88 fL (80-100); Mean Platelet Volume 10.9 fL (9.1-12.4); NEUTROPHILS ABSOLUTE AUTO 6.25 K/mm3 (1.96-9.15); NEUTROPHILS PERCENT AUTO 56 % (41-73); NRBC ABSOLUTE 0.06 K/mm3 (0.00-0.02); NRBC Auto 0.5 /100 WBC (0.0-0.2); Platelet Count 319 K/mm3 (150-400); RDW Coefficient Variation 16.6 % (11.7-14.2); RDW Standard Deviation 51.6 fL (35.1-46.3); White Blood Cell Count 11.11 K/mm3 (4.00-11.30)
[2024-05-10 07:18] LABS: Albumin, Blood 2.8 g/dL (3.4-5.0); Albumin/Globulin Ratio 0.7 (0.8-1.8); Bilirubin, Total 0.7 mg/dL (0.1-1.0); Bun/Creatinine Ratio 22.7 (12.0-20.0); Calcium, Blood 7.8 mg/dL (8.5-10.1); Creatinine, Blood 1.1 mg/dL (0.60-1.20); Potassium, Blood 4.1 mmol/L (3.5-5.5); Total Protein, Blood 6.8 g/dL (6.4-8.2)
[2024-05-10 07:49] VITALS: BP 102/80
[2024-05-10] MEDS ORDERED: Furosemide 10 MG/ML 4ML Vial IV SCH (09:00)
[2024-05-10 16:59] VITALS: BP 118/88
--- NOTE | 2024-05-10 18:06 | NUR ---
PT ATE FOOD AND BROKE NPO SO NO HIDA SCAN. PT WILL BE NPO @ MIDNIGHT FOR MORNING SCAN. PT HAD C/O PAIN SEE EMAR FOR PRN MEDICATIONS.
[2024-05-10 20:04] VITALS: BP 98/69
--- NOTE | 2024-05-11 04:32 | NUR ---
AAOX4, INDEPENDENT IN ROOM AND USES CALL LIGHT FOR NEEDS. AAOX4, HX:CVA WITH L SIDE WEAKNESS. EXTENSIVE CARDIAC HX, TELE IN PLACE SR @75 WITH BBB. RA. NPO AND LAST PAIN MEDICATION @ 0000. PLAN FOR HIDA SCAN. SHOWER X2, PER PT HELPS WITH HIS EPIGASTRIC PAIN. RUE POWERGLIDE, DRAWS WITHOUT ISSUES.
[2024-05-11 06:29] VITALS: BP 109/84
[2024-05-11 06:58] LABS: BASOPHILS ABSOLUTE AUTO 0.11 K/mm3 (0.00-0.23); BASOPHILS PERCENT AUTO 1 % (0-2); EOSINOPHILS ABSOLUTE AUTO 0.34 K/mm3 (0.00-0.68); EOSINOPHILS PERCENT AUTO 3 % (0-6); Hematocrit 36.6 % (37.0-53.0); IMMATURE GRAN ABSOLUTE AUTO 0.19 K/mm3 (0.00-0.10); IMMATURE GRAN PERCENT AUTO 2 % (0-1); LYMPHOCYTES ABSOLUTE AUTO 1.78 K/mm3 (0.84-5.20); LYMPHOCYTES PERCENT AUTO 16 % (21-46); MONOCYTES PERCENT AUTO 11 % (4-13); Mean Corpuscular HGB 29.6 pg (26.0-34.0); Mean Corpuscular HGB Conc 32.8 g/dL (31.5-36.5); Mean Corpuscular Volume 90 fL (80-100); Mean Platelet Volume 10.6 fL (9.1-12.4); NEUTROPHILS ABSOLUTE AUTO 7.76 K/mm3 (1.96-9.15); NEUTROPHILS PERCENT AUTO 68 % (41-73); NRBC ABSOLUTE 0.06 K/mm3 (0.00-0.02); NRBC Auto 0.5 /100 WBC (0.0-0.2); Platelet Count 274 K/mm3 (150-400); RDW Coefficient Variation 16.3 % (11.7-14.2); RDW Standard Deviation 52.8 fL (35.1-46.3); Red Blood Cell Count 4.05 M/mm3 (4.30-5.90); White Blood Cell Count 11.48 K/mm3 (4.00-11.30)
[2024-05-11 07:09] VITALS: BP 111/78
[2024-05-11 07:21] LABS: Albumin, Blood 2.7 g/dL (3.4-5.0); Albumin/Globulin Ratio 0.7 (0.8-1.8); Bilirubin, Total 1.1 mg/dL (0.1-1.0); Bun/Creatinine Ratio 17.7 (12.0-20.0); Creatinine, Blood 1.24 mg/dL (0.60-1.20); Potassium, Blood 4.7 mmol/L (3.5-5.5); Total Protein, Blood 6.7 g/dL (6.4-8.2)
[2024-05-11] MEDS ORDERED: NS IV ONE (07:50)
[2024-05-11] MEDS ORDERED: SINCALIDE IV ONE (07:50)
--- NOTE | 2024-05-11 16:24 | NUR ---
PT ONLY SAT FOR HALF OF HIDA SCAN WITH C/O PAIN SO THEY ENDED IT EARLY BUT GOT APPROPRIAT SCANS.
[2024-05-11 17:19] VITALS: BP 96/74
[2024-05-11 19:46] VITALS: BP 116/75
[2024-05-12 00:24] VITALS: BP 112/63
[2024-05-12 04:10] VITALS: BP 133/98
--- NOTE | 2024-05-12 04:30 | NUR ---
PT A&O X4. VS WNL, TELE NSR WITH BBB IN 70'S. UP INDEPENDENTLY. HAS ABDOMINAL PAIN, MEDICATED WITH OXYCODONE X2 THIS SHIFT. PO INTAKE WNL, UOP WNL. CALLS APPROPRIATELY, AWAITING DECISION ON INCREASED LIVER ENZYMES. CARDIOLOGY HAS NOT CLEARED PT.
[2024-05-12 05:18] LABS: BASOPHILS ABSOLUTE AUTO 0.13 K/mm3 (0.00-0.23); BASOPHILS PERCENT AUTO 1 % (0-2); EOSINOPHILS ABSOLUTE AUTO 0.51 K/mm3 (0.00-0.68); EOSINOPHILS PERCENT AUTO 5 % (0-6); Hematocrit 37.2 % (37.0-53.0); Hemoglobin 11.9 g/dL (13.5-17.5); IMMATURE GRAN ABSOLUTE AUTO 0.16 K/mm3 (0.00-0.10); IMMATURE GRAN PERCENT AUTO 2 % (0-1); LYMPHOCYTES ABSOLUTE AUTO 2.76 K/mm3 (0.84-5.20); LYMPHOCYTES PERCENT AUTO 27 % (21-46); MONOCYTES ABSOLUTE AUTO 1.16 K/mm3 (0.16-1.47); MONOCYTES PERCENT AUTO 11 % (4-13); Mean Corpuscular HGB 28.9 pg (26.0-34.0); Mean Corpuscular Volume 90 fL (80-100); Mean Platelet Volume 10.6 fL (9.1-12.4); NEUTROPHILS ABSOLUTE AUTO 5.69 K/mm3 (1.96-9.15); NEUTROPHILS PERCENT AUTO 55 % (41-73); NRBC ABSOLUTE 0.02 K/mm3 (0.00-0.02); NRBC Auto 0.2 /100 WBC (0.0-0.2); Platelet Count 284 K/mm3 (150-400); RDW Coefficient Variation 16.5 % (11.7-14.2); RDW Standard Deviation 53.3 fL (35.1-46.3); Red Blood Cell Count 4.12 M/mm3 (4.30-5.90); White Blood Cell Count 10.41 K/mm3 (4.00-11.30)
[2024-05-12 05:40] LABS: Albumin, Blood 2.4 g/dL (3.4-5.0); Albumin/Globulin Ratio 0.6 (0.8-1.8); Bilirubin, Total 0.7 mg/dL (0.1-1.0); Bun/Creatinine Ratio 16.9 (12.0-20.0); Calcium, Blood 7.7 mg/dL (8.5-10.1); Creatinine, Blood 1.18 mg/dL (0.60-1.20); Globulin, Blood 4.2 g/dL (2.2-4.0); Potassium, Blood 4.3 mmol/L (3.5-5.5); Total Protein, Blood 6.6 g/dL (6.4-8.2)
[2024-05-12 07:19] VITALS: BP 107/85
[2024-05-12 11:11] VITALS: BP 110/84
--- NOTE | 2024-05-12 13:36 | NUR ---
NOTE PT REPORTED NO CHEST PAIN THIS AM. PT BLOOD PRESSURE WAS 107/85. HELD CARVEDILOL, AND IMDUR, NO PARAMETERS WITH MED. CALLED DR. SALDAÑA TO NOTFY IF OK, SHE ADDED PARAMETERS. PT DID NOT GET DOSE, AWARE. BP IS NOW 110/84
--- NOTE | 2024-05-12 15:55 | NUR ---
DISCHARGE NOTE PT A&OX4, PT ADMITTED DUE TO SEPSIS. PT REPORTED NO CHEST PAIN. PT ON ROOM AIR. SPO2 WAS 96%. PT WENT ON WALK WITH TURNER AND FORMER AUTOMATIC THIS AM. VSS. POWERGLIDE D/C. TELE D/C. DR. SALDAÑA PUT IN DISCHARGE ORDERS. NO ACUTE CHANGED DURING SHIFT. WENT OVER DISCHARGE INSTRUCTIONS AND MEDS. PT ESCORTED OUT VIA WHEELCHAIR BY TURNER AND FORMER AUTOMATIC. PT WENT HOME WITH PERSONAL BELONGINGS.
[2024-05-12] MEDS ORDERED: Carvedilol 6.25 MG Tab PO SCH (17:00)
[2024-05-12] MEDS ORDERED: Sacubitril/Valsartan 24 MG-26 MG Tab PO SCH (21:00)
[2024-05-13] MEDS ORDERED: Isosorbide Mononitrate 30 MG TABCR PO SCH (09:00)
[2024-05-14 12:02] LABS: HEPATITIS A ANTIBODY, IGM Negative (Negative); HEPATITIS B CORE ANTIBODY, IGM Negative (Negative); HEPATITIS B SURFACE ANTIGEN Negative (Negative); HEPATITIS C AB CIA INTERP Negative (Negative); HEPATITIS C ANTIBODY CIA INDEX 0.03 IV
== END 2024-05-12 15:14 | disposition home or self-care (01) | DRG 871 ==
LOC: ER 05:43 → ERHOLD 07:54 → MEDS 07:54
PROVIDERS: Emergency Medicine; Family Medicine; Surgery; ADMIT Internal Medicine
DX: A41.9 Sepsis, unspecified organism (principal); I50.23 Acute on chronic systolic (congestive) heart failure; J18.9 Pneumonia, unspecified organism; N17.9 Acute kidney failure, unspecified; E87.1 Hypo-osmolality and hyponatremia; I42.7 Cardiomyopathy due to drug and external agent; I13.0 Hypertensive heart and chronic kidney disease with heart failure and stage 1 through stage 4 chronic kidney disease, or unspecified chronic kidney disease; I42.0 Dilated cardiomyopathy; I25.10 Atherosclerotic heart disease of native coronary artery without angina pectoris; Z95.5 Presence of coronary angioplasty implant and graft; N18.30 Chronic kidney disease, stage 3 unspecified; F15.10 Other stimulant abuse, uncomplicated; E87.6 Hypokalemia; F32.A Depression, unspecified; F17.210 Nicotine dependence, cigarettes, uncomplicated; E66.9 Obesity, unspecified; D63.1 Anemia in chronic kidney disease; F14.10 Cocaine abuse, uncomplicated; G47.33 Obstructive sleep apnea (adult) (pediatric); I25.2 Old myocardial infarction; Z86.16 Personal history of COVID-19; Z98.890 Other specified postprocedural states; Z79.82 Long term (current) use of aspirin; Z79.02 Long term (current) use of antithrombotics/antiplatelets; Z79.899 Other long term (current) drug therapy; K82.8 Other specified diseases of gallbladder; Z71.51 Drug abuse counseling and surveillance of drug abuser; Z79.01 Long term (current) use of anticoagulants; Z95.2 Presence of prosthetic heart valve; Z71.6 Tobacco abuse counseling
CPT/HCPCS: 36415; 71045; 74176; 76705; 78226; 80048; 80053; 80074; 82570; 82803; 83605; 83735; 83880; 84100; 84145; 84300; 84484; 84540; 85025; 85027; 87040; 93005; 93010; 93308; 93321; 94640; 94664; 94760; 99285-25; A9270; A9537; C1751; J0456; J0696; J1650; J1940; J2405; J7050; Q9957

== ENCOUNTER 2024-05-19 02:08 | Inpatient (IN) | payer OTHER ==
[~2024-05-19] VITALS: Ht 177.8 cm; Wt 110.6 kg
[2024-05-19] MEDS ORDERED: CEFD300 PO (02:34)
[2024-05-19] MEDS ORDERED: ALBU2.5V5 INH (02:34)
[2024-05-19] MEDS ORDERED: GUAI200 PO (02:35)
[2024-05-19] MEDS ORDERED: OXYC5 PO (02:35)
[2024-05-19] MEDS ORDERED: DOXY100 PO (02:35)
[2024-05-19] MEDS ORDERED: PANT40 PO (02:35)
[2024-05-19 02:40] LABS: BASOPHILS ABSOLUTE AUTO 0.21 K/mm3 (0.00-0.23); BASOPHILS PERCENT AUTO 2 % (0-2); EOSINOPHILS ABSOLUTE AUTO 0.36 K/mm3 (0.00-0.68); EOSINOPHILS PERCENT AUTO 3 % (0-6); Hematocrit 42.3 % (37.0-53.0); Hemoglobin 13.2 g/dL (13.5-17.5); IMMATURE GRAN ABSOLUTE AUTO 0.14 K/mm3 (0.00-0.10); IMMATURE GRAN PERCENT AUTO 1 % (0-1); LYMPHOCYTES ABSOLUTE AUTO 2.26 K/mm3 (0.84-5.20); LYMPHOCYTES PERCENT AUTO 17 % (21-46); MONOCYTES ABSOLUTE AUTO 1.34 K/mm3 (0.16-1.47); MONOCYTES PERCENT AUTO 10 % (4-13); Mean Corpuscular HGB 28.5 pg (26.0-34.0); Mean Corpuscular HGB Conc 31.2 g/dL (31.5-36.5); Mean Corpuscular Volume 91 fL (80-100); Mean Platelet Volume 10.4 fL (9.1-12.4); NEUTROPHILS ABSOLUTE AUTO 8.76 K/mm3 (1.96-9.15); NEUTROPHILS PERCENT AUTO 67 % (41-73); NRBC ABSOLUTE 0.03 K/mm3 (0.00-0.02); NRBC Auto 0.2 /100 WBC (0.0-0.2); Platelet Count 334 K/mm3 (150-400); RDW Coefficient Variation 16.4 % (11.7-14.2); RDW Standard Deviation 53.7 fL (35.1-46.3); Red Blood Cell Count 4.63 M/mm3 (4.30-5.90); White Blood Cell Count 13.07 K/mm3 (4.00-11.30)
[2024-05-19 02:59] LABS: Albumin/Globulin Ratio 0.6 (0.8-1.8); Bilirubin, Total 1.9 mg/dL (0.1-1.0); Bun/Creatinine Ratio 17.8 (12.0-20.0); Calcium, Blood 8.4 mg/dL (8.5-10.1); Creatinine, Blood 1.63 mg/dL (0.60-1.20); Globulin, Blood 5.2 g/dL (2.2-4.0); Potassium, Blood 5.3 mmol/L (3.5-5.5); Total Protein, Blood 8.2 g/dL (6.4-8.2)
[2024-05-19 02:59] LABS: Influenza A, PCR NEGATIVE (NEGATIVE); Influenza B, PCR NEGATIVE (NEGATIVE); Resp Syncytial Virus, PCR NEGATIVE (NEGATIVE); SARS-Cov-2 (COVID-19) PCR, MMC NEGATIVE (NEGATIVE)
[2024-05-19] MEDS ORDERED: Ketorolac Tromethamine 15mg Vial IV ONE (03:30)
[2024-05-19] MEDS ORDERED: Lidocaine 2% Viscous Soln 15 ML UDC PO ONE (05:45)
[2024-05-19] MEDS ORDERED: Mag Hydrox/AL Hydrox/Simeth 30 ML UDC PO ONE (05:45)
[2024-05-19] MEDS ORDERED: Ondansetron HCl 2 MG / ML 2ML Vial IV ONE (06:20)
[2024-05-19] MEDS ORDERED: FLU VACC TS2024-25(6MOS UP)/PF 45 MCG/0.5 ML SYRINGE IM ONE (06:25)
--- NOTE | 2024-05-19 08:45 | NUR ---
THIS RN COVERING FOR MARIYA RN AM BREAK. PATIENT ARRIVES FROM ER. ASKS FOR EMESIS BAG AND IT IS PROVIDED. PER PATIENT HE DOES NOT FEEL HE WILL "PUKE" BUT WANTS ONE JUST IN CASE. THIS RN BEGINS TO ASK INITIAL QUESTIONS PATIENT CUSSING "FUCK THIS" I WAS JUST HERE I'M NOT ANSWERING ANY QUESTIONS. JOSIAH RN WILL CALL PHARMACY WHEN THEY OPEN AND ASK FOR CURRENT MED LIST. PATIENT IS PROVIDED WITH CALL LIGHT AND LIGHTS ARE LOW. HE IS PROVIDED WITH PRIVACY AND RN WILL ATTEMPT HISTORY AND PHYSICAL AND ASSESSMENT QUESTIONS A LITTLE LATER.
[2024-05-19] MEDS ORDERED: Isosorbide Mono30 MG PO (08:48)
[2024-05-19] MEDS ORDERED: ENTRESTO 24 MG1 EACH PO (08:49)
[2024-05-19] MEDS ORDERED: SOAANZ40 M1 PO (08:51)
[2024-05-19 08:55] VITALS: BP 105/85
--- NOTE | 2024-05-19 10:11 | NUR ---
NOTE: SPOKE WITH AND PROVIDED UPDATES VIA TELEPHONE.
[2024-05-19 11:36] VITALS: BP 101/75
[2024-05-19] MEDS ORDERED: Acetaminophen 325 MG TABLET PO PRN (11:45)
--- NOTE | 2024-05-19 12:51 | NUR ---
NOTE: RANDY OF NUCLEAR MEDICINE NOTIFIED THIS NURSE THAT THE STRESS TEST WILL NOT BE ABLE TO BE COMPLETE TODAY. IT WILL BE COMPLETED IN ONE DAY TOMORROW, 05/20. DR. NAVJOT MAYOIFED, DIET ORDER OBTAINED, AND PT NOTIFIED. PT IS TO BE NPO AT MIDNIGHT TONIGHT.
[2024-05-19 16:14] VITALS: BP 123/97
[2024-05-19] MEDS ORDERED: Carvedilol 6.25 MG Tab PO SCH (17:00)
[2024-05-19] MEDS ORDERED: OxyCODONE HCL 5 MG TAB PO PRN (17:30)
[2024-05-19] MEDS ORDERED: Furosemide 10 MG/ML 4ML Vial IV SCH (18:00)
--- NOTE | 2024-05-19 19:05 | NUR ---
SHIFT SUMMARY PT AOX4, INDEPENDENT IN THE ROOM. STRESS TEST TOMORROW. NO EVENTS PER TELE. AT THE BS. BM THIS SHIFT. MEDICATED FOR PAIN PER THE EMAR. NO ACUTE EVENTS SINCE ADMIT TO THE FLOOR. CALL LIGHT WITHIN REACH, BED LOCKED AND IN THE LOWEST POSITION. WILL REPORT TO ONCOMING NURSE.
[2024-05-19 19:25] VITALS: BP 106/77
[2024-05-19 20:43] LABS: U Opiates Screen DETECTED; U Oxycodone Screen DETECTED
[2024-05-19 20:44] LABS: U Amphetamine Screen Not Detected; U Barbituate Screen Not Detected; U Benzodiazapine Screen Not Detected; U Buprenorphine Screen Not Detected; U Cannabinoids Screen Not Detected; U Cocaine Screen Not Detected; U Methadone Screen Not Detected; U Methamphetamine Screen Not Detected; U Phencyclidine Screen Not Detected
[2024-05-19] MEDS ORDERED: Torsemide 20 MG TAB PO SCH (21:00)
[2024-05-19] MEDS ORDERED: Sacubitril/Valsartan 24 MG-26 MG Tab PO SCH (21:00)
[2024-05-19] MEDS ORDERED: Melatonin 5 MG Tablet PO PRN (21:20)
[2024-05-20 00:08] VITALS: BP 119/78
[2024-05-20 03:33] VITALS: BP 104/74
--- NOTE | 2024-05-20 06:32 | NUR ---
SHIFT SUMMARY PT C/O RIGHT SIDED CHEST PAIN AND SOB WITH ACTIVITY- PT STATES UNCHANGED SINCE PREVIOUS ADMISSION FOR PNEUMONIA. MEDICATED PER EMAR. PT TACHYPNIC AT TIMES. INDEPENDENT IN ROOM. PT NPO AFTER MIDNIGHT FOR STRESS TEST TODAY. BED IN LOWEST POSITION, CALL LIGHT WITHIN REACH, SIDERAILS UP X2.
[2024-05-20 07:44] VITALS: BP 100/73
[2024-05-20 07:58] LABS: BASOPHILS ABSOLUTE AUTO 0.18 K/mm3 (0.00-0.23); BASOPHILS PERCENT AUTO 2 % (0-2); EOSINOPHILS ABSOLUTE AUTO 0.54 K/mm3 (0.00-0.68); EOSINOPHILS PERCENT AUTO 5 % (0-6); Hematocrit 39.2 % (37.0-53.0); Hemoglobin 12.9 g/dL (13.5-17.5); IMMATURE GRAN ABSOLUTE AUTO 0.23 K/mm3 (0.00-0.10); IMMATURE GRAN PERCENT AUTO 2 % (0-1); LYMPHOCYTES ABSOLUTE AUTO 1.35 K/mm3 (0.84-5.20); LYMPHOCYTES PERCENT AUTO 13 % (21-46); MONOCYTES ABSOLUTE AUTO 1.75 K/mm3 (0.16-1.47); MONOCYTES PERCENT AUTO 16 % (4-13); Mean Corpuscular HGB 28.5 pg (26.0-34.0); Mean Corpuscular HGB Conc 32.9 g/dL (31.5-36.5); Mean Corpuscular Volume 87 fL (80-100); NEUTROPHILS ABSOLUTE AUTO 6.63 K/mm3 (1.96-9.15); NEUTROPHILS PERCENT AUTO 62 % (41-73); NRBC ABSOLUTE 0.04 K/mm3 (0.00-0.02); NRBC Auto 0.4 /100 WBC (0.0-0.2); RDW Coefficient Variation 16.5 % (11.7-14.2); RDW Standard Deviation 51.5 fL (35.1-46.3); Red Blood Cell Count 4.52 M/mm3 (4.30-5.90); White Blood Cell Count 10.68 K/mm3 (4.00-11.30)
[2024-05-20 08:29] LABS: Mean Platelet Volume 10.8 fL (9.1-12.4); Platelet Count 264 K/mm3 (150-400)
[2024-05-20] MEDS ORDERED: Isosorbide Mononitrate 30 MG TABCR PO SCH (09:00)
[2024-05-20] MEDS ORDERED: Clopidogrel Bisulfate 75 MG Tab PO SCH (09:00)
[2024-05-20] MEDS ORDERED: Ondansetron HCl 2 MG / ML 2ML Vial IV PRN (09:00)
[2024-05-20] MEDS ORDERED: Enoxaparin 40 MG/0.4 ML SYR SC SCH (09:00)
[2024-05-20] MEDS ORDERED: Aspirin 81 MG TabEC PO SCH (09:00)
[2024-05-20] MEDS ORDERED: Regadenoson 0.4 MG/5 ML SYRINGE ONE (11:24)
[2024-05-20 11:26] VITALS: BP 95/55
[2024-05-20 11:40] LABS: Albumin, Blood 2.5 g/dL (3.4-5.0); Albumin/Globulin Ratio 0.6 (0.8-1.8); Bilirubin, Total 1.2 mg/dL (0.1-1.0); Bun/Creatinine Ratio 25.4 (12.0-20.0); Calcium, Blood 7.8 mg/dL (8.5-10.1); Creatinine, Blood 1.38 mg/dL (0.60-1.20); Globulin, Blood 4.2 g/dL (2.2-4.0); Potassium, Blood 3.8 mmol/L (3.5-5.5); Total Protein, Blood 6.7 g/dL (6.4-8.2)
[2024-05-20 16:02] VITALS: BP 116/62
--- NOTE | 2024-05-20 18:00 | NUR ---
SHIFT SUMMARY PATIENT A/OX4, ABLE TO MAKE NEEDS KNOWN. COOPERATIVE WITH CARE, ANXIOUS INTERMITTENTLY. STRESS TEST COMPLETED TODAY, RESULTS ABNORMAL AND CARIOLOGY CONSULTED. PATIENT CONTINUES TO COMPLAIN OF CHEST PAIN, MEDICATED PER APR. DURING STRESS TEST PATIENT HAD 1 EPISODE OF EMESIS. MD NOTIFIED AND ORDER FOR ZOFRAN ATTEMPTED TO BE ADMINISTERED BUT PATIENT DENIED NEED. NO OTHER EPISODES OF EMESIS THIS SHIFT. CAME TO VISIT THIS AFTERNOON. PATIENT ALSO COMPLAINING OF LEFT HAND MUSCLE CRAMPING, HAND IS EDEMETUOUS AND BRUSIED. PER PATIENT HAND HAS BEEN EDEMETOUS SINCE HOSPITALIZATION IN [place] D/T IV INFILTRATION. OFFERED PATIENT HEATING PACK, DENIED NEED AT THIS TIME. PATIENT ABLE TO AMBULATE HALLWAYS THIS EVENING INDEPENDENTLY. NO OTHER CONCERNS AT THIS TIME.
[2024-05-20 20:05] VITALS: BP 112/69
[2024-05-20] MEDS ORDERED: Ranolazine 500 MG ER Tablet PO SCH (21:00)
[2024-05-21] VITALS (11 sets, daily range): BP systolic 90–120; BP diastolic 58–90
[2024-05-21] MEDS ORDERED: DiphenhydrAMINE HCL 25 MG Cap PO ONE (04:50)
--- NOTE | 2024-05-21 04:53 | NUR ---
PT C/O ITCHING "ALL OVER"- NO RASH NOTED. LOADER MALT HOUSE PROVIDER NOTIFIED AND 1X ORDER FOR BENADRYL RECEIVED.
[2024-05-21 05:20] LABS: BASOPHILS ABSOLUTE AUTO 0.16 K/mm3 (0.00-0.23); BASOPHILS PERCENT AUTO 2 % (0-2); EOSINOPHILS PERCENT AUTO 6 % (0-6); Hematocrit 36.9 % (37.0-53.0); Hemoglobin 11.8 g/dL (13.5-17.5); IMMATURE GRAN ABSOLUTE AUTO 0.17 K/mm3 (0.00-0.10); IMMATURE GRAN PERCENT AUTO 2 % (0-1); LYMPHOCYTES ABSOLUTE AUTO 1.53 K/mm3 (0.84-5.20); LYMPHOCYTES PERCENT AUTO 19 % (21-46); MONOCYTES ABSOLUTE AUTO 1.04 K/mm3 (0.16-1.47); MONOCYTES PERCENT AUTO 13 % (4-13); Mean Corpuscular HGB 28.4 pg (26.0-34.0); Mean Corpuscular Volume 89 fL (80-100); Mean Platelet Volume 10.5 fL (9.1-12.4); NEUTROPHILS ABSOLUTE AUTO 4.86 K/mm3 (1.96-9.15); NEUTROPHILS PERCENT AUTO 59 % (41-73); Platelet Count 289 K/mm3 (150-400); RDW Coefficient Variation 16.3 % (11.7-14.2); RDW Standard Deviation 52.2 fL (35.1-46.3); Red Blood Cell Count 4.16 M/mm3 (4.30-5.90); White Blood Cell Count 8.26 K/mm3 (4.00-11.30)
[2024-05-21 05:41] LABS: Albumin, Blood 2.4 g/dL (3.4-5.0); Albumin/Globulin Ratio 0.6 (0.8-1.8); Bilirubin, Total 0.8 mg/dL (0.1-1.0); Bun/Creatinine Ratio 25.6 (12.0-20.0); Calcium, Blood 7.5 mg/dL (8.5-10.1); Creatinine, Blood 1.21 mg/dL (0.60-1.20); Globulin, Blood 4.1 g/dL (2.2-4.0); Potassium, Blood 3.6 mmol/L (3.5-5.5); Total Protein, Blood 6.5 g/dL (6.4-8.2)
--- NOTE | 2024-05-21 05:45 | NUR ---
SHIFT SUMMARY PT RESTLESS DURING THE NIGHT. SLEPT SHORT INTERVALS ONLY. MEDICATED FOR PAIN PER EMAR. PT C/O LEFT HAND WITH INCREASED PAIN, "CONSTANT, ACHY AND IT FEELS COLD ON THE INSIDE". PT WITH STRONG RADIAL PULSE, HAND REMAINS SWOLLEN. K PAD PROVIDED AND PT ENCOURAGED TO ELEVATE HAND ON PILLOWS. PT STATES IMPROVEMENT OF HAND PAIN. PT C/O ITCHING ALL OVER (SEE PREVIOUS NOTE)- NO RASH NOTED- BENADRYL GIVEN PER EMAR. PT VERBALIZES ANXIETY RE: STRESS TEST RESULTS, ANTICIPATING CARDIOLOGY C/S LATER TODAY. BED IN LOWEST POSITION, CALL LIGHT WITHIN REACH, SIDERAILS UP X2.
[2024-05-21] MEDS ORDERED: Simethicone 80 MG Chew PO PRN (10:25)
--- NOTE | 2024-05-21 18:28 | NUR ---
SHIFT SUMMARY PATIENT A/OX4, ABLE TO MAKE NEEDS KNOWN. TELEMETRY IN PLACE, NO EVENTS NOTED. PATIENT COMPLAINING OF PAIN THIS EVENING TO CHEST, PRN OXYCODONE ADMINISTERED. PATIENT NOTED TO HAVE BELCHING AND STATES HAS BEEN A CHRONIC ISSUE, GAS X ADMINISTERED, INEFFECTIVE. SPOKE WITH PATIENT'S SPOUSE, BAO, AND UPDATED HER ON PATIENT STATUS. PATIENT'S SON AT BEDSIDE CURRENTLY. NO OTHER CONCERNS AT THIS TIME. PLAN TO DISCHARGE TOMORROW.
--- NOTE | 2024-05-21 23:32 | NUR ---
PT STATES 8/10 LEFT SIDED CHEST PAIN AFTER BELCHING. PER BEND UP, PT REMAINS IN SR, BUT IT APPEARS "DIFFERENT". EKG OBTAINED AND GAS LINE INSTALLER SUPERVISOR PROVIDER, DR. RODRÍGUEZ, NOTIFIED. IV MORPHINE AND SL NTG IF BP ALLOWS ORDERED.
[2024-05-21] MEDS ORDERED: Morphine Sulfate 4 MG/1 ML Injection IV ONE (23:35)
[2024-05-21] MEDS ORDERED: Nitroglycerin 0.4 MG SUBL SL PRN (23:35)
[2024-05-22] VITALS (7 sets, daily range): BP systolic 96–112; BP diastolic 64–82
--- NOTE | 2024-05-22 01:57 | NUR ---
0010- PT GIVEN IV MORPHINE AND 2 DOSES OF SL NTG FOR CP WITH PAIN GOING FROM AN 8/10 TO A 4/10. PT STATED HE WAS FEELING MUCH BETTER. 3RD DOSE OF NTG HELD FOR BP 96/64.
--- NOTE | 2024-05-22 05:26 | NUR ---
AT 0450 PT C/O LEFT SIDED CHEST PAIN 7/10 PRESSURE. NITRO GIVEN X3 DOSES WITH PAIN DECREASING TO 5-6. SPECIAL SKILLS OFFICER PROVIDER, DR. AGUIAR, NOTIFIED AND PRN ORDER FOR MORPHINE RECEIVED.
[2024-05-22] MEDS ORDERED: Morphine Sulfate 4 MG/1 ML Injection IV PRN (05:30)
[2024-05-22 06:09] LABS: Bun/Creatinine Ratio 20.1 (12.0-20.0); Calcium, Blood 7.7 mg/dL (8.5-10.1); Creatinine, Blood 0.99 mg/dL (0.60-1.20); Potassium, Blood 4.2 mmol/L (3.5-5.5)
--- NOTE | 2024-05-22 06:17 | NUR ---
SHIFT SUMMARY PT WITH 2 EPISODES OF LEFT SIDED CHEST PAIN DURING THE NIGHT- SEE PRIOR NOTES. STATES PAIN IS CURRENTLY DOWN TO 3/10. EXCEPT FOR WITH THE CHEST PAIN EPISODES, PT STATES HIS BREATHING HAS BEEN IMPROVED AND OVERALL PAIN IMPROVED. PT SLEPT INTERMITTENTLY THROUGH THE NIGHT. BED IN LOWEST POSITION, CALL LIGHT WITHIN REACH, SIDERAILS UP X2.
[2024-05-22 06:23] LABS: BASOPHILS ABSOLUTE AUTO 0.15 K/mm3 (0.00-0.23); BASOPHILS PERCENT AUTO 2 % (0-2); EOSINOPHILS ABSOLUTE AUTO 0.55 K/mm3 (0.00-0.68); EOSINOPHILS PERCENT AUTO 8 % (0-6); Hematocrit 38.8 % (37.0-53.0); Hemoglobin 12.4 g/dL (13.5-17.5); IMMATURE GRAN ABSOLUTE AUTO 0.14 K/mm3 (0.00-0.10); IMMATURE GRAN PERCENT AUTO 2 % (0-1); LYMPHOCYTES ABSOLUTE AUTO 1.23 K/mm3 (0.84-5.20); LYMPHOCYTES PERCENT AUTO 18 % (21-46); MONOCYTES ABSOLUTE AUTO 0.83 K/mm3 (0.16-1.47); MONOCYTES PERCENT AUTO 12 % (4-13); Mean Corpuscular Volume 88 fL (80-100); NEUTROPHILS ABSOLUTE AUTO 3.93 K/mm3 (1.96-9.15); NEUTROPHILS PERCENT AUTO 58 % (41-73); Platelet Count 285 K/mm3 (150-400); RDW Coefficient Variation 16.2 % (11.7-14.2); RDW Standard Deviation 51.8 fL (35.1-46.3); Red Blood Cell Count 4.43 M/mm3 (4.30-5.90); White Blood Cell Count 6.83 K/mm3 (4.00-11.30)
[2024-05-22] MEDS ORDERED: METO50ER PO (14:21)
[2024-05-22] MEDS ORDERED: PANT40 PO (14:21)
[2024-05-22] MEDS ORDERED: ALDACTONE25 MG PO (14:22)
--- NOTE | 2024-05-22 14:47 | NUR ---
DC SUMMARY PT DC THIS SHIFT. DC INSTRUCTION GONE OVER WITH PT AND PT 2 CHILDREN WHO WERE IN ROOM. PT STATED UNDERSTANDING. PT WAS ESCORTED OUT VIA WHEELCHAIR TO PRIVATE VEHICLE BY DRESS MARKER. MEDICATION WERE FAXED TO [facility] PER PT REQUEST SINCE PT NORMAL PHARMACY WAS CLOSED TODAY.
[2024-05-23] MEDS ORDERED: Pantoprazole Sodium 40 MG Tab PO SCH (06:00)
[2024-05-23] MEDS ORDERED: Nitroglycerin 0.4 MG SUBL SL SCH (09:00)
[2024-05-23] MEDS ORDERED: Metoprolol Succinate 50 MG TABCR PO SCH (09:00)
[2024-05-23] MEDS ORDERED: Spironolactone 25 MG Tab PO SCH (09:00)
== END 2024-05-22 14:49 | disposition home or self-care (01) | DRG 291 ==
LOC: ER 02:08 → MEDS 02:09
PROVIDERS: Emergency Medicine; ADMIT Internal Medicine
DX: I11.0 Hypertensive heart disease with heart failure (principal); I50.23 Acute on chronic systolic (congestive) heart failure; N17.9 Acute kidney failure, unspecified; R07.9 Chest pain, unspecified; F14.10 Cocaine abuse, uncomplicated; F15.10 Other stimulant abuse, uncomplicated; I25.10 Atherosclerotic heart disease of native coronary artery without angina pectoris; F32.A Depression, unspecified; E66.9 Obesity, unspecified; Z68.35 Body mass index [BMI] 35.0-35.9, adult; G47.33 Obstructive sleep apnea (adult) (pediatric); I25.5 Ischemic cardiomyopathy; Z28.21 Immunization not carried out because of patient refusal; Z95.2 Presence of prosthetic heart valve; Z86.73 Personal history of transient ischemic attack (TIA), and cerebral infarction without residual deficits; Z95.5 Presence of coronary angioplasty implant and graft; Z98.890 Other specified postprocedural states; Z87.891 Personal history of nicotine dependence; Z79.82 Long term (current) use of aspirin; Z79.02 Long term (current) use of antithrombotics/antiplatelets; Z79.899 Other long term (current) drug therapy
CPT/HCPCS: 0241U; 36415; 71046; 78452; 80048; 80053; 83880; 84484; 85025; 93005; 93010; 93017; 96372-59; 96374; 96375; 99285-25; A9270; A9500; G0378; J1650; J1885; J1940; J2270; J2405; J2785

== ENCOUNTER 2024-06-02 19:36 | Inpatient (IN) | payer OTHER ==
[~2024-06-02] VITALS: Ht 177.8 cm; Wt 100.4 kg
[~2024-06-02 19:36] MED LIST changes: +ALBU2.5V5 INH; +ALDACTONE25 MG PO; +CEFD300 PO; +DOXY100 PO; +ENTRESTO 24 MG1 EACH PO; +GUAI200 PO; +METO50ER PO; +OXYC5 PO; +PANT40 PO
[2024-06-02 20:35] LABS: BASOPHILS ABSOLUTE AUTO 0.08 K/mm3 (0.00-0.23); BASOPHILS PERCENT AUTO 1 % (0-2); EOSINOPHILS ABSOLUTE AUTO 0.58 K/mm3 (0.00-0.68); EOSINOPHILS PERCENT AUTO 7 % (0-6); Hematocrit 46.9 % (37.0-53.0); Hemoglobin 15.1 g/dL (13.5-17.5); IMMATURE GRAN ABSOLUTE AUTO 0.06 K/mm3 (0.00-0.10); IMMATURE GRAN PERCENT AUTO 1 % (0-1); LYMPHOCYTES ABSOLUTE AUTO 1.35 K/mm3 (0.84-5.20); LYMPHOCYTES PERCENT AUTO 16 % (21-46); MONOCYTES ABSOLUTE AUTO 1.17 K/mm3 (0.16-1.47); MONOCYTES PERCENT AUTO 14 % (4-13); Mean Corpuscular HGB 26.8 pg (26.0-34.0); Mean Corpuscular HGB Conc 32.2 g/dL (31.5-36.5); Mean Corpuscular Volume 83 fL (80-100); NEUTROPHILS ABSOLUTE AUTO 5.34 K/mm3 (1.96-9.15); NEUTROPHILS PERCENT AUTO 62 % (41-73); Platelet Count 373 K/mm3 (150-400); RDW Coefficient Variation 15.7 % (11.7-14.2); RDW Standard Deviation 47.5 fL (35.1-46.3); Red Blood Cell Count 5.64 M/mm3 (4.30-5.90); White Blood Cell Count 8.58 K/mm3 (4.00-11.30)
[2024-06-02 20:48] LABS: Albumin, Blood 3.3 g/dL (3.4-5.0); Albumin/Globulin Ratio 0.6 (0.8-1.8); Bun/Creatinine Ratio 16.8 (12.0-20.0); Creatinine, Blood 1.13 mg/dL (0.60-1.20); Globulin, Blood 5.1 g/dL (2.2-4.0); Potassium, Blood 3.9 mmol/L (3.5-5.5); Total Protein, Blood 8.4 g/dL (6.4-8.2)
[2024-06-02] MEDS ORDERED: Ipratropium/Albuterol SulF 2.5-0.5MG/3 ML Amp INH ONE (22:25)
[2024-06-02 23:05] LABS: Base Excess Venous -2.8 mmol/L; Bicarbonate Venous 23.3 mmol/L (24.0-30.0); PCO2 Venous 28.3 mmHg (38-42); pH Blood Venous 7.47 (7.34-7.37)
[2024-06-03] VITALS (8 sets, daily range): BP systolic 95–120; BP diastolic 64–86
[2024-06-03] MEDS ORDERED: OXYC5 PO (00:25)
[2024-06-03] MEDS ORDERED: ENTRESTO 24 MG1 EACH PO (00:25)
[2024-06-03] MEDS ORDERED: OxyCODONE HCL 5 MG TAB PO PRN (01:00)
[2024-06-03] MEDS ORDERED: Furosemide 10 MG/ML 4ML Vial IV ONE (01:00)
[2024-06-03] MEDS ORDERED: Polyethylene Glycol 3350 17 gm PO PRN (01:20)
[2024-06-03] MEDS ORDERED: Pantoprazole Sodium 40 MG Tab PO SCH (06:00)
[2024-06-03 06:24] LABS: Influenza A, PCR NEGATIVE (NEGATIVE); Influenza B, PCR NEGATIVE (NEGATIVE); Resp Syncytial Virus, PCR NEGATIVE (NEGATIVE); SARS-Cov-2 (COVID-19) PCR, MMC NEGATIVE (NEGATIVE)
[2024-06-03] MEDS ORDERED: Metoprolol Succinate 50 MG TABCR PO SCH (07:00)
[2024-06-03] MEDS ORDERED: Furosemide 10 MG/ML 4ML Vial IV SCH (07:00)
[2024-06-03] MEDS ORDERED: Spironolactone 25 MG Tab PO SCH (07:00)
[2024-06-03 07:20] LABS: Hematocrit 46.2 % (37.0-53.0); Hemoglobin 15.1 g/dL (13.5-17.5); Mean Corpuscular HGB 27.5 pg (26.0-34.0); Mean Corpuscular HGB Conc 32.7 g/dL (31.5-36.5); Mean Corpuscular Volume 84 fL (80-100); Mean Platelet Volume 9.8 fL (9.1-12.4); Platelet Count 342 K/mm3 (150-400); RDW Coefficient Variation 15.9 % (11.7-14.2); RDW Standard Deviation 48.8 fL (35.1-46.3); White Blood Cell Count 8.15 K/mm3 (4.00-11.30)
[2024-06-03 07:50] LABS: Albumin, Blood 3.4 g/dL (3.4-5.0); Albumin/Globulin Ratio 0.7 (0.8-1.8); Bilirubin, Total 0.8 mg/dL (0.1-1.0); Bun/Creatinine Ratio 19.8 (12.0-20.0); Calcium, Blood 8.9 mg/dL (8.5-10.1); Creatinine, Blood 1.01 mg/dL (0.60-1.20); Globulin, Blood 5.2 g/dL (2.2-4.0); Potassium, Blood 3.8 mmol/L (3.5-5.5); Total Protein, Blood 8.6 g/dL (6.4-8.2)
[2024-06-03] MEDS ORDERED: Sacubitril/Valsartan 24 MG-26 MG Tab PO SCH (09:00)
[2024-06-03] MEDS ORDERED: Isosorbide Mononitrate 30 MG TABCR PO SCH (09:00)
[2024-06-03] MEDS ORDERED: Enoxaparin 40 MG/0.4 ML SYR SC SCH (09:00)
[2024-06-03] MEDS ORDERED: Clopidogrel Bisulfate 75 MG Tab PO SCH (09:00)
[2024-06-03] MEDS ORDERED: Aspirin 81 MG TabEC PO SCH (09:00)
--- NOTE | 2024-06-03 16:12 | NUR ---
PT COMPLAINING OF MUSCLE CRAMPS AND VOICING CONCERNS THAT POTASSIUM MIGHT BE LOW. INFORMED DR. MORFIN, ORDER FOR BMP RECIEVED AND TO HOLD LASIX UNTIL POTASSIUM LEVEL IS KNOWN.
[2024-06-03 17:28] LABS: Bun/Creatinine Ratio 18.4 (12.0-20.0); Calcium, Blood 9.6 mg/dL (8.5-10.1); Creatinine, Blood 1.25 mg/dL (0.60-1.20); Potassium, Blood 3.9 mmol/L (3.5-5.5)
--- NOTE | 2024-06-03 17:44 | NUR ---
SHIFT SUMMARY PT IS A/OX4, IND/SBA TO BATHROOM. PT HAS RESTED MOST OF SHIFT, SOB HAS DECREASED OVER TIME AND PATIENTS RR 16-18 AT REST. 02 SATS >92% ON RA. PT DOES HAVE DRY COUGH. REPORTS CHEST PAIN THAT IS RELIEVED W/ NORCO. VSS. PT DIURESING W/ LASIX PER EMAR. FREE WATER RESTRICTION OF 1500MLS. PT VOIDED MULTIPLE TIMES THIS SHIFT. HOLDING [address] MORFIN. PT RESTING W/ CALL LIGHT IN REACH.
[2024-06-04] VITALS (7 sets, daily range): BP systolic 87–110; BP diastolic 57–74
--- NOTE | 2024-06-04 04:32 | NUR ---
SHIFT SUMMARY; SLEPT IN LONG INTERVALS, MEDICATED ONCE FOR CP, UNCHANGED IN STRENGTH.TELE SR @ 81.SHOWERED.
[2024-06-04 07:50] LABS: BASOPHILS ABSOLUTE AUTO 0.12 K/mm3 (0.00-0.23); BASOPHILS PERCENT AUTO 2 % (0-2); EOSINOPHILS ABSOLUTE AUTO 0.65 K/mm3 (0.00-0.68); EOSINOPHILS PERCENT AUTO 10 % (0-6); Hematocrit 47.6 % (37.0-53.0); Hemoglobin 15.3 g/dL (13.5-17.5); IMMATURE GRAN ABSOLUTE AUTO 0.05 K/mm3 (0.00-0.10); IMMATURE GRAN PERCENT AUTO 1 % (0-1); LYMPHOCYTES ABSOLUTE AUTO 1.66 K/mm3 (0.84-5.20); LYMPHOCYTES PERCENT AUTO 24 % (21-46); MONOCYTES ABSOLUTE AUTO 1.14 K/mm3 (0.16-1.47); MONOCYTES PERCENT AUTO 17 % (4-13); Mean Corpuscular HGB 27.2 pg (26.0-34.0); Mean Corpuscular HGB Conc 32.1 g/dL (31.5-36.5); Mean Corpuscular Volume 85 fL (80-100); Mean Platelet Volume 9.7 fL (9.1-12.4); NEUTROPHILS ABSOLUTE AUTO 3.25 K/mm3 (1.96-9.15); NEUTROPHILS PERCENT AUTO 47 % (41-73); Platelet Count 310 K/mm3 (150-400); RDW Coefficient Variation 15.8 % (11.7-14.2); RDW Standard Deviation 48.8 fL (35.1-46.3); Red Blood Cell Count 5.63 M/mm3 (4.30-5.90); White Blood Cell Count 6.87 K/mm3 (4.00-11.30)
[2024-06-04 08:08] LABS: Bun/Creatinine Ratio 23.2 (12.0-20.0); Calcium, Blood 9.2 mg/dL (8.5-10.1); Creatinine, Blood 0.95 mg/dL (0.60-1.20); Potassium, Blood 3.9 mmol/L (3.5-5.5)
[2024-06-04] MEDS ORDERED: Enoxaparin 40 MG/0.4 ML SYR SC SCH (18:00)
--- NOTE | 2024-06-04 18:37 | NUR ---
NO ACUTE CHANGES SINCE ASSUMPTION OF CARE PT RESTING FOR MAJORITY OF SHIFT. MEDICATED FOR PAIN X1. DENIES OTHER NEEDS. USING CALL LIGHT APPROPRIATLY. TOLERATING DIET WELL.
[2024-06-05 03:52] VITALS: BP 89/69
[2024-06-05 07:13] VITALS: BP 103/62
--- NOTE | 2024-06-05 07:46 | NUR ---
SHIFT SUMMARY: PATIENT ALEART AND ORIENTED X4. PLEASANT AND COOPERATIVE WITH CARE. GENERAL STUDIES PROGRAM CHAIR ELIEZER CALLED AT 0426 PT SR, RATE OF 70 WITH BBB. SCHEDULED MEDICATIONS GIVEN ORDERED. PRN PAIN MEDS GIVEN PER PATIENTS REQUEST. LEFT SIDED DEFICITS NOTED IN PATIENTS LEFT HAND AND PT REPORTS THAT HE HAS A LIMP WHEN HE WALKS LEFT LEG. 1500 FLUID LIMIT. RT HAND/WRIST WITH SL. PATENT AND FLUSHES EASILY. REPORT TO GARCIA SANDY AND MAC RN TO ASSUME CARE.
[2024-06-05 08:33] LABS: BASOPHILS PERCENT AUTO 2 % (0-2); EOSINOPHILS ABSOLUTE AUTO 0.56 K/mm3 (0.00-0.68); EOSINOPHILS PERCENT AUTO 9 % (0-6); Hemoglobin 15.8 g/dL (13.5-17.5); IMMATURE GRAN ABSOLUTE AUTO 0.03 K/mm3 (0.00-0.10); IMMATURE GRAN PERCENT AUTO 1 % (0-1); LYMPHOCYTES ABSOLUTE AUTO 2.39 K/mm3 (0.84-5.20); LYMPHOCYTES PERCENT AUTO 39 % (21-46); MONOCYTES ABSOLUTE AUTO 0.68 K/mm3 (0.16-1.47); MONOCYTES PERCENT AUTO 11 % (4-13); Mean Corpuscular HGB 27.7 pg (26.0-34.0); Mean Corpuscular HGB Conc 32.9 g/dL (31.5-36.5); Mean Corpuscular Volume 84 fL (80-100); Mean Platelet Volume 9.6 fL (9.1-12.4); NEUTROPHILS PERCENT AUTO 39 % (41-73); Platelet Count 309 K/mm3 (150-400); RDW Coefficient Variation 15.6 % (11.7-14.2); RDW Standard Deviation 47.6 fL (35.1-46.3); White Blood Cell Count 6.16 K/mm3 (4.00-11.30)
[2024-06-05 08:52] LABS: Bun/Creatinine Ratio 23.2 (12.0-20.0); Creatinine, Blood 0.91 mg/dL (0.60-1.20); Potassium, Blood 3.8 mmol/L (3.5-5.5)
[2024-06-05] MEDS ORDERED: Furosemide 10 MG/ML 4ML Vial IV SCH ×2 (09:00→18:00)
[2024-06-05 16:02] VITALS: BP 97/60
[2024-06-05 19:38] VITALS: BP 109/82
[2024-06-06 04:13] VITALS: BP 97/65
--- NOTE | 2024-06-06 04:22 | NUR ---
SHIFT SUMMARY CATHERINE WAS ALERT AND FULLY ORIENTED ON ASSESSMENT. PT IND IN ROOM. NO CALLS FROM TELE TONIGHT. NO ALARMS FROM [facility]. PT STILL C/O 4-6 PAIN TO CHEST, STATES THAT PAIN QUALITIY IS UNCHANGED. NO SOB. PAIN WELL CONTROLLED. NO NOTED CHANGES TO PT CONDITION OR ACUTE EVENTS.
[2024-06-06 04:32] LABS: BASOPHILS ABSOLUTE AUTO 0.07 K/mm3 (0.00-0.23); BASOPHILS PERCENT AUTO 1 % (0-2); EOSINOPHILS PERCENT AUTO 8 % (0-6); Hematocrit 46.9 % (37.0-53.0); Hemoglobin 15.2 g/dL (13.5-17.5); IMMATURE GRAN ABSOLUTE AUTO 0.04 K/mm3 (0.00-0.10); IMMATURE GRAN PERCENT AUTO 1 % (0-1); LYMPHOCYTES ABSOLUTE AUTO 2.21 K/mm3 (0.84-5.20); LYMPHOCYTES PERCENT AUTO 35 % (21-46); MONOCYTES ABSOLUTE AUTO 0.59 K/mm3 (0.16-1.47); MONOCYTES PERCENT AUTO 9 % (4-13); Mean Corpuscular HGB Conc 32.4 g/dL (31.5-36.5); Mean Corpuscular Volume 83 fL (80-100); Mean Platelet Volume 9.7 fL (9.1-12.4); NEUTROPHILS ABSOLUTE AUTO 2.92 K/mm3 (1.96-9.15); NEUTROPHILS PERCENT AUTO 46 % (41-73); Platelet Count 296 K/mm3 (150-400); RDW Coefficient Variation 15.4 % (11.7-14.2); RDW Standard Deviation 46.6 fL (35.1-46.3); Red Blood Cell Count 5.64 M/mm3 (4.30-5.90); White Blood Cell Count 6.33 K/mm3 (4.00-11.30)
[2024-06-06 04:52] LABS: Bun/Creatinine Ratio 24.6 (12.0-20.0); Creatinine, Blood 0.9 mg/dL (0.60-1.20); Potassium, Blood 3.7 mmol/L (3.5-5.5)
[2024-06-06 07:23] VITALS: BP 102/75
[2024-06-06 09:21] VITALS: BP 106/73
--- NOTE | 2024-06-06 09:38 | NUR ---
CONSULTED W/ DR. SALDAÑA REGARDING PT'S HYPOTENSION THIS AM, HOLDING CARDIAC MEDS METOPROLOL, SPIRONOLACTONE, ENTRESTO, LASIX, AND IMDUR PER MD ORDER. OK TO GIVE LOVENOX, PLAVIX AND ASPIRIN.
[2024-06-06 11:33] VITALS: BP 103/78
[2024-06-06 15:10] VITALS: BP 115/79
--- NOTE | 2024-06-06 15:16 | NUR ---
DISCHARGE NOTE PT IS A/OX4, IND IN ROOM, AMBULATING, VOIDING, TOLERATING REG DIET. PT STATES PAIN IS TOLERABLE W/ PAIN MEDS PER EMAR, PT HAS ACTIVE OXY PRESCRIPTION AT HOME. VSS. RESPERATIONS E/U, O2 SATS >92% ON ROOM AIR. REMINDED PT TO CHECK BP BEFORE TAKING BP MEDS. DISCHARGE INSTRUCTIONS REVIEWED W/ PT, COPY GIVEN. PT OPTED TO AMBULATE OUT OF HOSPITAL TO [facility] ORGANIZED BY CARE MANAGEMENT, PT DC'D IN STABLE CONDITION W/ ALL BELONGINGS.
== END 2024-06-06 15:15 | disposition home or self-care (01) | DRG 291 ==
LOC: ER 19:36 → SURS 06-03 00:45 → ERHOLD 06-03 00:45 → SURS 06-03 06:05
PROVIDERS: Internal Medicine; Registered Nurse; Student in an Organized Health Care Education/Training Program; ADMIT Internal Medicine
DX: I13.0 Hypertensive heart and chronic kidney disease with heart failure and stage 1 through stage 4 chronic kidney disease, or unspecified chronic kidney disease (principal); I50.23 Acute on chronic systolic (congestive) heart failure; E87.1 Hypo-osmolality and hyponatremia; I25.10 Atherosclerotic heart disease of native coronary artery without angina pectoris; Z95.5 Presence of coronary angioplasty implant and graft; F15.10 Other stimulant abuse, uncomplicated; E66.9 Obesity, unspecified; K21.9 Gastro-esophageal reflux disease without esophagitis; I34.0 Nonrheumatic mitral (valve) insufficiency; F17.210 Nicotine dependence, cigarettes, uncomplicated; F32.A Depression, unspecified; F14.10 Cocaine abuse, uncomplicated; G47.30 Sleep apnea, unspecified; G56.00 Carpal tunnel syndrome, unspecified upper limb; N18.30 Chronic kidney disease, stage 3 unspecified; I25.2 Old myocardial infarction; G47.33 Obstructive sleep apnea (adult) (pediatric); Z79.82 Long term (current) use of aspirin; Z79.02 Long term (current) use of antithrombotics/antiplatelets; Z79.891 Long term (current) use of opiate analgesic; Z79.899 Other long term (current) drug therapy; Z87.01 Personal history of pneumonia (recurrent); Z95.2 Presence of prosthetic heart valve; Z71.6 Tobacco abuse counseling; Z71.51 Drug abuse counseling and surveillance of drug abuser; Z68.35 Body mass index [BMI] 35.0-35.9, adult
CPT/HCPCS: 0241U; 36415; 71046; 80048; 80053; 82803; 83880; 84484; 85025; 85027; 85379; 93005; 93010; 94640; 94664; 94762; 99285-25; A9270; J1650; J1940

== ENCOUNTER 2024-10-29 22:18 | Inpatient (IN) | payer OTHER ==
[~2024-10-29] VITALS: Ht 177.8 cm; Wt 111.0 kg
[~2024-10-29 22:18] MED LIST changes: +ASPIRIN REGIMEN81 MG PO; +SPIR25 PO
[2024-10-29 23:01] LABS: BASOPHILS ABSOLUTE AUTO 0.11 K/mm3 (0.00-0.23); BASOPHILS PERCENT AUTO 1 % (0-2); EOSINOPHILS ABSOLUTE AUTO 0.29 K/mm3 (0.00-0.68); EOSINOPHILS PERCENT AUTO 2 % (0-6); Hematocrit 41.2 % (37.0-53.0); Hemoglobin 13.4 g/dL (13.5-17.5); IMMATURE GRAN ABSOLUTE AUTO 0.13 K/mm3 (0.00-0.10); IMMATURE GRAN PERCENT AUTO 1 % (0-1); LYMPHOCYTES ABSOLUTE AUTO 1.51 K/mm3 (0.84-5.20); LYMPHOCYTES PERCENT AUTO 8 % (21-46); MONOCYTES ABSOLUTE AUTO 1.06 K/mm3 (0.16-1.47); MONOCYTES PERCENT AUTO 6 % (4-13); Mean Corpuscular HGB Conc 32.5 g/dL (31.5-36.5); Mean Corpuscular Volume 90 fL (80-100); NEUTROPHILS ABSOLUTE AUTO 15.76 K/mm3 (1.96-9.15); NEUTROPHILS PERCENT AUTO 84 % (41-73); NRBC ABSOLUTE 0.00 K/mm3 (0.00-0.02); NRBC Auto 0.0 /100 WBC (0.0-0.2); Platelet Count 283 K/mm3 (150-400); RDW Coefficient Variation 15.9 % (11.7-14.2); RDW Standard Deviation 51.0 fL (35.1-46.3)
[2024-10-29 23:21] LABS: Alanine Aminotransfer (ALT/SGP 17.0 U/L (12-78); Albumin, Blood 3.4 g/dL (3.4-5.0); Albumin/Globulin Ratio 0.8 (0.8-1.8); Anion Gap 11.0 mmol/L (3-11); Aspartate Aminotrans (AST/SGOT 25.0 U/L (12-37); Bilirubin, Total 1.2 mg/dL (0.1-1.0); Blood Urea Nitrogen 19.0 mg/dL (8-24); CO2, Blood 24.0 mmol/L (21-32); Calcium, Blood 8.6 mg/dL (8.5-10.1); Chloride, Blood 105.0 mmol/L (98-108); Creatinine, Blood 1.55 mg/dL (0.60-1.20); Globulin, Blood 4.3 g/dL (2.2-4.0); Glucose, Blood 106.0 mg/dL (70-99); Potassium, Blood 3.6 mmol/L (3.5-5.5); Sodium, Blood 136.0 mmol/L (136-145); Total Protein, Blood 7.7 g/dL (6.4-8.2)
[2024-10-29] MEDS ORDERED: Ondansetron HCl 2 MG / ML 2ML Vial IV ONE (23:30)
[2024-10-30] MEDS ORDERED: CefTRIAXone Sodium 1,000 MG in NS 100 ML IV ONE ×2 (00:35→01:45)
[2024-10-30 01:47] LABS: Influenza A, PCR NEGATIVE (NEGATIVE); Influenza B, PCR NEGATIVE (NEGATIVE); Resp Syncytial Virus, PCR NEGATIVE (NEGATIVE); SARS-Cov-2 (COVID-19) PCR, MMC NEGATIVE (NEGATIVE)
[2024-10-30 02:40] VITALS: BP 122/88
[2024-10-30] MEDS ORDERED: NS 1,000 ML BAG IR SCH (03:00)
[2024-10-30] MEDS ORDERED: NS 250 ML IV SCH ×2 (03:10→15:30)
[2024-10-30] MEDS ORDERED: Ipratropium/Albuterol SulF 2.5-0.5MG/3 ML Amp INH PRN (03:45)
--- NOTE | 2024-10-30 04:44 | NUR ---
PT ARRIVED ON THE UNIT DYSPNEIC HOWEVER REFUSED SUPPLEMENTAL O2. TELE REPORT SINUS TACHY WITH MULTIFORM PVC'S. PATIENT WAS IN AND OUT OF BEING FULLY ALERT AND BEING DROWSY. PATIENT SEEMS TO HAVE SMALL PERIODS OF APNEA PERHAPS CONSISTANT WITH ESTHER, RESPIRATORY WAS CONSULTED AND ETHAN REPORTED TO THE ROOM. PATIENT RESTED COMFORTABLY AFTER ADMISSION
[2024-10-30 05:08] LABS: BASOPHILS ABSOLUTE AUTO 0.12 K/mm3 (0.00-0.23); BASOPHILS PERCENT AUTO 1 % (0-2); EOSINOPHILS ABSOLUTE AUTO 0.37 K/mm3 (0.00-0.68); EOSINOPHILS PERCENT AUTO 2 % (0-6); Hematocrit 39.3 % (37.0-53.0); Hemoglobin 12.6 g/dL (13.5-17.5); IMMATURE GRAN ABSOLUTE AUTO 0.10 K/mm3 (0.00-0.10); IMMATURE GRAN PERCENT AUTO 1 % (0-1); LYMPHOCYTES ABSOLUTE AUTO 2.22 K/mm3 (0.84-5.20); LYMPHOCYTES PERCENT AUTO 14 % (21-46); MONOCYTES ABSOLUTE AUTO 1.33 K/mm3 (0.16-1.47); MONOCYTES PERCENT AUTO 8 % (4-13); Mean Corpuscular HGB Conc 32.1 g/dL (31.5-36.5); Mean Corpuscular Volume 91 fL (80-100); NEUTROPHILS ABSOLUTE AUTO 12.00 K/mm3 (1.96-9.15); NEUTROPHILS PERCENT AUTO 74 % (41-73); NRBC ABSOLUTE 0.02 K/mm3 (0.00-0.02); NRBC Auto 0.1 /100 WBC (0.0-0.2); Platelet Count 254 K/mm3 (150-400); RDW Coefficient Variation 15.9 % (11.7-14.2); RDW Standard Deviation 52.0 fL (35.1-46.3)
[2024-10-30 05:37] LABS: Alanine Aminotransfer (ALT/SGP 16.0 U/L (12-78); Albumin, Blood 3.0 g/dL (3.4-5.0); Albumin/Globulin Ratio 0.7 (0.8-1.8); Anion Gap 11.0 mmol/L (3-11); Aspartate Aminotrans (AST/SGOT 27.0 U/L (12-37); Bilirubin, Total 1.0 mg/dL (0.1-1.0); Blood Urea Nitrogen 17.0 mg/dL (8-24); CO2, Blood 23.0 mmol/L (21-32); Calcium, Blood 8.4 mg/dL (8.5-10.1); Chloride, Blood 106.0 mmol/L (98-108); Creatinine, Blood 1.28 mg/dL (0.60-1.20); Globulin, Blood 4.1 g/dL (2.2-4.0); Glucose, Blood 124.0 mg/dL (70-99); Potassium, Blood 3.8 mmol/L (3.5-5.5); Sodium, Blood 136.0 mmol/L (136-145); Total Protein, Blood 7.1 g/dL (6.4-8.2)
[2024-10-30] MEDS ORDERED: Piperacillin/Tazobactam Sod 4.5 GM in NS 100 ML IV SCH (06:00)
[2024-10-30 07:53] VITALS: BP 107/82
[2024-10-30 08:36] LABS: Source, Urine Clean Catch
[2024-10-30 08:43] LABS: Bilirubin, Urine Neg (Neg); Color, Urine Yellow (P-Yellow); Glucose Qualitative, Urine Neg (Neg); Ketones, Urine Neg (Neg); Leukocyte Esterase, Urine Neg (Neg); Protein, Urine 1+ (Neg); Specific Gravity, Urine 1.020 (1.003-1.022); Urobilinogen, Urine 2+ (Normal)
[2024-10-30] MEDS ORDERED: Torsemide 20 MG TAB PO SCH (09:00)
[2024-10-30] MEDS ORDERED: Isosorbide Mononitrate 30 MG TABCR PO SCH (09:00)
[2024-10-30] MEDS ORDERED: Lactobacil 2-S.Thermo-Bifido 1 1 Cap PO SCH (09:00)
[2024-10-30 09:02] LABS: U Amphetamine Screen DETECTED; U Barbituate Screen Not Detected; U Benzodiazapine Screen Not Detected; U Buprenorphine Screen Not Detected; U Cannabinoids Screen Not Detected; U Cocaine Screen Not Detected; U Methadone Screen Not Detected; U Methamphetamine Screen DETECTED; U Opiates Screen DETECTED; U Oxycodone Screen Not Detected; U Phencyclidine Screen Not Detected
[2024-10-30 11:23] VITALS: BP 108/88
[2024-10-30 15:20] VITALS: BP 90/54
--- NOTE | 2024-10-30 15:25 | NUR ---
BP CALLED DR MORFIN CONCERNING PT BP 90/54. ORDER RECEIVED. CARE ONGOING.
[2024-10-30 16:27] VITALS: BP 102/64
--- NOTE | 2024-10-30 16:33 | NUR ---
NOTE PT ALERT, RESTING MOST OF THE DAY. AROUSES TO VOICE. HE IS SLIGHTLY SHAKEY. SKIN DAMP. HE DENIES WITHDRAWEL SYMPTOMS. CONTINUING TO ASSESS FOR DRUG WITHDRAWEL RELATED TO TOX SCREEN RESULTS. PT LEG CRAMPS RESOLVED WITH GATORADE. BSBP LOW. ORDERED 250ML BOLUS GIVEN. BP IMPROVED. PT CONTINUES TO STATE THAT HIS CHEST WALL IS SORE WITH COUGHING AND DEEP BREATHING. PT HAS NOT USED THE BIPAP TODAY. RA. UP IND IN ROOM. CARE ONGOING.
[2024-10-30 19:38] VITALS: BP 101/71
--- NOTE | 2024-10-30 20:42 | NUR ---
SPOKE TO ABDELRAHMAN AT 1640, STATED WILL ORDER MEDS FOR W/D. ALSO ALERTED TO 13 BEAT RUN OF MIGUEL ANGEL
[2024-10-30] MEDS ORDERED: CefTRIAXone Sodium 2,000 MG in NS 100 ML IV SCH (21:00)
[2024-10-30 21:28] LABS: Magnesium, Blood 2.5 mg/dL (1.6-2.4); Potassium, Blood 4.4 mmol/L (3.5-5.5)
[2024-10-31] VITALS (43 sets, daily range): BP systolic 84–141; BP diastolic 44–120
[2024-10-31] MEDS ORDERED: FentaNYL Citrate 50 MCG/ML 2 ML Injection IV PRN (00:25)
[2024-10-31] MEDS ORDERED: NS 1,000 ML BAG IR ONE ×2 (01:00)
--- NOTE | 2024-10-31 01:53 | NUR ---
DR ORDERED A 250ML BOLUS AFTER CALLING ABOUT B/P OF 71/48 AFTER 50MCG OF FENTANYL. ONCE I STARTED THE BOLUS THE L FOREARM IV BLEW. CALLED TEAM TO HAVE EITHER ICE OR PCU COME DOWN AND INSERT A NEW LINE. FLOOR TEAM TRIED X5 TO GET NEW IV ACCESS WITH NO LUCK.
--- NOTE | 2024-10-31 02:45 | NUR ---
REPORT RECEIVED FROM MEDICAL FLOOR RN, CONSTANCE. THIS RN TO ASSUME CARE OF PT ONCE PT IS BROUGHT TO ICU 11.
[2024-10-31 03:41] LABS: BASOPHILS ABSOLUTE AUTO 0.03 K/mm3 (0.00-0.23); BASOPHILS PERCENT AUTO 0 % (0-2); EOSINOPHILS ABSOLUTE AUTO 0.02 K/mm3 (0.00-0.68); EOSINOPHILS PERCENT AUTO 0 % (0-6); Hematocrit 43.2 % (37.0-53.0); Hemoglobin 14.0 g/dL (13.5-17.5); IMMATURE GRAN ABSOLUTE AUTO 0.35 K/mm3 (0.00-0.10); IMMATURE GRAN PERCENT AUTO 2 % (0-1); LYMPHOCYTES ABSOLUTE AUTO 1.36 K/mm3 (0.84-5.20); LYMPHOCYTES PERCENT AUTO 7 % (21-46); MONOCYTES ABSOLUTE AUTO 0.84 K/mm3 (0.16-1.47); MONOCYTES PERCENT AUTO 4 % (4-13); Mean Corpuscular HGB Conc 32.4 g/dL (31.5-36.5); Mean Corpuscular Volume 93 fL (80-100); NEUTROPHILS ABSOLUTE AUTO 17.78 K/mm3 (1.96-9.15); NEUTROPHILS PERCENT AUTO 87 % (41-73); NRBC ABSOLUTE 0.03 K/mm3 (0.00-0.02); NRBC Auto 0.1 /100 WBC (0.0-0.2); Platelet Count 267 K/mm3 (150-400); RDW Coefficient Variation 16.1 % (11.7-14.2); RDW Standard Deviation 53.5 fL (35.1-46.3)
[2024-10-31 03:56] LABS: Prothrombin Time Results 14.0 Sec (9.7-11.5)
--- NOTE | 2024-10-31 03:58 | NUR ---
ASSUMPTION OF CARE: PT ARRIVED TO ICU RM 11 VIA HOSPITAL BED, ACCOMPANIED BY MED FLOOR RN AND RT. PT PLACED ON BIPAP ON ARRIVAL. PT A&OX4, ABLE TO MAKE NEEDS KNOWN. PT INDEPENDENTLY SCOOT FROM MED FLOOR BED TO ICU BED. PT COOPERATIVE W/CARE. CT CALLED WHILE RN WAS SETTLING PT. THIS RN, ACCOMPANIED BY RT AND MARIZA RN, TOOK PT TO CT FOR PE STUDY. PT TRANSPORTED VIA BED. OXY MASK IN PLACE. LEFT UNIT AT ABOUT 0305 AND RETURNED TO ICU 11 AT ABOUT 0320. HEMATOLOGY CALLED AND INFORMED RN THAT PTS BLOOD CULTURES WERE POSITIVE FOR GRAM POSS COCCI. DR AGUIAR AT BEDSIDE SHORTLY AFTER. DR NOTIFIED OF BLOOD CULTURE RESULTS AND CONTINUED 09/08 DULL/ LEFT SIDED CHEST PAIN THAT PT WAS CONTINUING TO REPORT. PER . CONTINUE TO MONITOR AND GIVE PRN MEDS NEEDED. NS BOLUS AND ZOSYN STARTED PER EMAR ORDERS. PT APPEARS TO BE RESTING COMFORTABLY IN BED, TOLERATING BIPAP AT THIS TIME. SATS >95%. BIPAP SETTINGS 16/8. HR 80S, SINUS. SBP NOTED TO DIFFER BETWEEN R AND L FOREARMS. PT R FA READING 80-110S SBP WHILE L FA READS 120-140S. MAPS >65. PER DR AGUIAR, GOAL IS TO MAINTAIN MAP>65. PT DENIES N/V OR ABD PAIN. NO URINARY ISSUES REPORTED. THIS RN TO CONTINUE TO MONITOR PT.
[2024-10-31 04:01] LABS: Alanine Aminotransfer (ALT/SGP 762.0 U/L (12-78); Albumin, Blood 3.0 g/dL (3.4-5.0); Albumin/Globulin Ratio 0.7 (0.8-1.8); Anion Gap 12.0 mmol/L (3-11); Aspartate Aminotrans (AST/SGOT 766.0 U/L (12-37); Bilirubin, Total 1.7 mg/dL (0.1-1.0); Blood Urea Nitrogen 27.0 mg/dL (8-24); CO2, Blood 23.0 mmol/L (21-32); Calcium, Blood 9.0 mg/dL (8.5-10.1); Chloride, Blood 102.0 mmol/L (98-108); Creatinine, Blood 1.53 mg/dL (0.60-1.20); Globulin, Blood 4.3 g/dL (2.2-4.0); Glucose, Blood 95.0 mg/dL (70-99); Potassium, Blood 4.1 mmol/L (3.5-5.5); Sodium, Blood 133.0 mmol/L (136-145); Total Protein, Blood 7.3 g/dL (6.4-8.2)
[2024-10-31] MEDS ORDERED: Vancomycin (Pharmacy Consult) IV SCH (04:10)
[2024-10-31] MEDS ORDERED: Vancomycin HCL 2,500 MG in NS 500 ML IV ONE (04:45)
[2024-10-31] MEDS ORDERED: Ketorolac Tromethamine 15mg Vial IV ONE (05:00)
[2024-10-31] MEDS ORDERED: Piperacillin/Tazobactam Sod 4.5 GM in NS 100 ML IV SCH ×2 (05:45→15:00)
--- NOTE | 2024-10-31 06:37 | NUR ---
SHIFT SUMMARY: NO ACUTE CHANGES T/O THE NIGHT. PT REMAINED A&O X4. ABLE TO MAKE NEEDS KNOWN AND COMMUNICATE W/STAFF. PT MOVES IN BED INDEPENDENTLY. SBP REMAINED STABLE, MAP>65. PT DENIED DIZZINESS OR SOLARES. HR 80S, SINUS. PT ALTERNATING BETWEEN BIPAP AND OXIMIZER MASK. SATS>90%. PT DENIED N/V. ABD SOFT, NONTENDER. BT ACTIVE X4. NO ISSUES ENDORSED. PT HAS POWERGLIDE TO ZAHIDA AND PIV TO ANA. THIS RN TO REPORT TO ONCOMING RN.
[2024-10-31] MEDS ORDERED: Heparin Sodium,Porcine 5,000 UNIT/0.5 ML SDV SC SCH (09:00)
--- NOTE | 2024-10-31 09:18 | NUR ---
AM NOTE PT ASLEEP IN BED AT TIME OF BEDSIDE REPORT W/ NOC NURSE. A/OX4, ABLE TO MOVE ALL EXTREMITIES SPONTANEOUSLY, MAKE NEEDS KNOWN, AND CALLS APPRORPIATELY. PT ON OXYMIZER MASK AND BIPAP INTERMITTENTLT WHILE ASLEEP, WHEN AWAKE, ABLE TO TOLERATE 4LPM NC SATURATING >95%. TACHYPNEIC AT TIMES OF EXERTION, SHALLOW BREATHS OVERALL. LUNG SOUNDS DIM/COARSE T/O BROOKS. NSR ON MONITOR W/ AUDIBLE MURMUR. CAP REFILL<3 SEC, NO NOTED EDEMA. BOWEL SOUNDS ACTIVE, ABD SOFT AND NONTENDER. WNL. SKIN INTACT AND W/O BREAKDOWN. ACCESS: ANA PIV, ZAHIDA PG
--- NOTE | 2024-10-31 15:55 | NUR ---
TRANSFER PT TRANSFERRED TO PCU5 VIA WHEELCHAIR W/ ALL PERSONAL BELONGINGS, CHART, AND MEDICATION. PT WAS RECEIVED BY ASSISTIVE TECHNOLOGY TRAINER IN ROOM. VITAL SIGNS STABLE AND PATIENT WIHTOUT DISTRESS THROUGHOUT TRANSFER.
--- NOTE | 2024-10-31 17:56 | NUR ---
PT ARRIVED TO PCU05 VIA WHEELCHAIR FROM ICU11. PLEASANT AND COOPERATIVE. SR/PAC ON TELEMETRY. VSS ON 4L VIA NC. REPORTS CHEST PAIN 7/10 TO L CHEST, WORSE WITH INSPIRATION BUT CONSTANT DULL. NOTIFIED DR. SALDAÑA AND EKG AND TROPONIN ORDERED X2
[2024-10-31] MEDS ORDERED: FentaNYL Citrate 50 MCG/ML 2 ML Injection IV ONE (22:00)
[2024-10-31] MEDS ORDERED: Ondansetron HCl 2 MG / ML 2ML Vial IV PRN (22:00)
[2024-10-31] MEDS ORDERED: Ondansetron HCl 2 MG / ML 2ML Vial IV ONE (22:00)
[2024-10-31] MEDS ORDERED: LORazepam 2 MG/ML 1ML Injection IV ONE (22:20)
[2024-10-31] MEDS ORDERED: LORazepam 2 MG/ML 1ML Injection ONE (22:24)
[2024-10-31 22:29] LABS: pH Blood Venous 7.26 (7.34-7.37)
[2024-10-31 23:20] LABS: Alanine Aminotransfer (ALT/SGP 1926.0 U/L (12-78); Albumin, Blood 2.9 g/dL (3.4-5.0); Albumin/Globulin Ratio 0.7 (0.8-1.8); Anion Gap 16.0 mmol/L (3-11); Aspartate Aminotrans (AST/SGOT 1902.0 U/L (12-37); Bilirubin, Total 1.6 mg/dL (0.1-1.0); Blood Urea Nitrogen 34.0 mg/dL (8-24); CO2, Blood 20.0 mmol/L (21-32); Calcium, Blood 9.0 mg/dL (8.5-10.1); Chloride, Blood 102.0 mmol/L (98-108); Creatinine, Blood 2.07 mg/dL (0.60-1.20); Globulin, Blood 4.3 g/dL (2.2-4.0); Glucose, Blood 199.0 mg/dL (70-99); Potassium, Blood 4.8 mmol/L (3.5-5.5); Sodium, Blood 133.0 mmol/L (136-145); Total Protein, Blood 7.2 g/dL (6.4-8.2)
[2024-11-01] VITALS (23 sets, daily range): BP systolic 78–135; BP diastolic 42–117
[2024-11-01 00:52] LABS: Magnesium, Blood 2.5 mg/dL (1.6-2.4); Phosphorus, Blood 5.2 mg/dL (2.5-4.9)
[2024-11-01] MEDS ORDERED: Sodium Bicarb 8.4% 1 MEQ/ML 50 ML Vial IV ONE (01:00)
--- NOTE | 2024-11-01 01:45 | NUR ---
PT ARRIVED TO UNIT AT 0120 WITH SCIENTIFIC AFFAIRS MANAGER, HOTEL GENERAL MANAGER, AND RT. PT ON OXYMASK THEN SWITCHED TO BIPAP ONCE IN ICU BED. PT AOX3 BUT IS MOANING THAT HE "JUST DOESN'T KNOW HOW HE GOT HERE". PT REORIENTED TO SITUATION AND PLACE. 'S [employer] AND STEFANIA AT BEDSIDE TO TALK WITH PT. C/O ABDOMINAL PAIN AND SAID HE NEEDED TO HAVE A BOWEL MOVEMENT BUT REFUSED TO USE BEDPAN STATING "I'M NOT TAKING A SHIT ON A TURK IN A BED WHEN I CAN STAND AND USE THE PORTABLE" (REFERRING TO BSC). WE DISCUSSED HIS OXYGEN DEMANDS AND HOW THAT MIGHT NOT BE THE SAFEST OPTION FOR HIM BUT HE STILL INSISTED, SO HELPED PT TO BSC, STAYED IN ROOM UNTIL HE ASKED FOR PRIVACY. CALL LIGHT WAS PLACED IN REACH AND DOOR AND CURTAIN CRACKED FOR MONITORING.
[2024-11-01 02:26] LABS: Source, Urine Clean Catch
[2024-11-01 02:29] LABS: Bilirubin, Urine Neg (Neg); Glucose Qualitative, Urine Neg (Neg); Ketones, Urine Neg (Neg); Leukocyte Esterase, Urine 1+ (Neg); Protein, Urine 3+ (Neg); Specific Gravity, Urine 1.025 (1.003-1.022); Urobilinogen, Urine 3+ (Normal)
[2024-11-01 02:33] LABS: Color, Urine Yellow (P-Yellow)
[2024-11-01 02:38] LABS: Red Blood Cells, Urine 0-2 /hpf (0-2); White Blood Cells, Urine 0-2 /hpf (0-5)
[2024-11-01 03:03] LABS: Acetaminophen, Random <2.0 ug/mL (10.0-30.0)
--- NOTE | 2024-11-01 03:45 | NUR ---
AT THE BEGINNING OF THE SHIFT, PT HAD COMPLAINTS OF PAIN AND NAUSEA. LAWN AND TREE SERVICE SPRAY SUPERVISOR PROVIDER CALLED D/T PT NOT HAVING ANY PRN NAUSEA MEDS AVAILABLE. ORDERS RECEIVED. PT HAD NO RELIEF FROM PRN PAIN MEDICATION. PT STATES HIS PAIN IS ON BOTH SIDES OF HIS CHEST WITH HE BREATHES. LAWN AND TREE SERVICE SPRAY SUPERVISOR PROVIDER NOTIFIED AGAIN. LAWN AND TREE SERVICE SPRAY SUPERVISOR PROVIDER, DR. FERRIS, CAME TO BEDSIDE TO ASSESS PT. NEW ORDERS RECEIVED(SEE CHART). PT PLACED ON BIPAP. DR. FERRIS NOTIFIED OF CRITICAL LAB RESULTS. DR. AGUIAR CAME TO BEDSIDE TO ASSESS PT. NEW ORDERS GIVEN. THIS NURSE GAVE REPORT TO ICU NURSE RECEIVING PT. SPAIN PLACED. TRANSPORTED TO CT. PT TRANSFERRED TO ICU AFTER CT PER ORDERS.
[2024-11-01 04:46] LABS: BASOPHILS ABSOLUTE AUTO 0.04 K/mm3 (0.00-0.23); BASOPHILS PERCENT AUTO 0 % (0-2); EOSINOPHILS ABSOLUTE AUTO 0.00 K/mm3 (0.00-0.68); EOSINOPHILS PERCENT AUTO 0 % (0-6); Hematocrit 41.8 % (37.0-53.0); Hemoglobin 13.6 g/dL (13.5-17.5); IMMATURE GRAN ABSOLUTE AUTO 0.37 K/mm3 (0.00-0.10); IMMATURE GRAN PERCENT AUTO 2 % (0-1); LYMPHOCYTES ABSOLUTE AUTO 1.21 K/mm3 (0.84-5.20); LYMPHOCYTES PERCENT AUTO 5 % (21-46); MONOCYTES ABSOLUTE AUTO 1.53 K/mm3 (0.16-1.47); MONOCYTES PERCENT AUTO 6 % (4-13); Mean Corpuscular HGB Conc 32.5 g/dL (31.5-36.5); Mean Corpuscular Volume 92 fL (80-100); NEUTROPHILS ABSOLUTE AUTO 21.94 K/mm3 (1.96-9.15); NEUTROPHILS PERCENT AUTO 87 % (41-73); NRBC ABSOLUTE 0.07 K/mm3 (0.00-0.02); NRBC Auto 0.3 /100 WBC (0.0-0.2); Platelet Count 272 K/mm3 (150-400); RDW Coefficient Variation 16.5 % (11.7-14.2); RDW Standard Deviation 54.1 fL (35.1-46.3)
[2024-11-01 05:09] LABS: Vancomycin, Trough 26.4 ug/mL (5.0-10.0)
[2024-11-01 05:18] LABS: Alanine Aminotransfer (ALT/SGP 3974.0 U/L (12-78); Albumin, Blood 2.9 g/dL (3.4-5.0); Albumin/Globulin Ratio 0.7 (0.8-1.8); Anion Gap 12.0 mmol/L (3-11); Aspartate Aminotrans (AST/SGOT 4214.0 U/L (12-37); Bilirubin, Total 1.5 mg/dL (0.1-1.0); Blood Urea Nitrogen 42.0 mg/dL (8-24); CO2, Blood 21.0 mmol/L (21-32); Calcium, Blood 8.7 mg/dL (8.5-10.1); Chloride, Blood 105.0 mmol/L (98-108); Creatinine, Blood 1.9 mg/dL (0.60-1.20); Globulin, Blood 4.0 g/dL (2.2-4.0); Glucose, Blood 142.0 mg/dL (70-99); Potassium, Blood 4.4 mmol/L (3.5-5.5); Sodium, Blood 134.0 mmol/L (136-145); Total Protein, Blood 6.9 g/dL (6.4-8.2)
[2024-11-01] MEDS ORDERED: LORazepam 2 MG/ML 1ML Injection IV PRN (05:55)
--- NOTE | 2024-11-01 07:00 | NUR ---
ASSUMPTION OF CARE PT IS ALERT AND ORIENTED. HE IS ON AN OXYMASK WITH 8L NC. PT DENIES SOB. PT IS REFUSING TO WEAR BIPAP MASK, REQUIRES FREQUENT REMINDERS TO KEEP OXYMASK IN PLACE. PT DESATS TO LOW 80S WITH MASK OFF. SINUS ON MONITOR, BP STABLE. SPAIN HAS SMALL AMOUNT OF URINE IN BAG. PT C/O OUT OF PROPORTION SPAIN PAIN. PT BECOMING AGITATED AND STATING HE HAS TO BEAR DOWN TO URINATE. SPAIN REMOVED AND PT REPORTS RELIEF. BED IN LOW POSITION, CALL LIGHT WITHIN REACH.
[2024-11-01] MEDS ORDERED: Piperacillin/Tazobactam Sod 3.375 GM in NS 100 ML IV SCH (08:00)
[2024-11-01 11:39] LABS: CHOL/HDL RATIO 4.2; Cholesterol 135 mg/dL (50-200); HDL Cholesterol 32 mg/dL (>39); LDL/HDL RATIO 3.0; Low Density Lipoprotein Chol 95 mg/dL (0-110); Triglycerides 40 mg/dL (30-160); Very Low Density Lipoprot Chol 8 mg/dL (6-32)
[2024-11-01 15:16] LABS: Alanine Aminotransfer (ALT/SGP 4441.0 U/L (12-78); Albumin, Blood 3.0 g/dL (3.4-5.0); Albumin/Globulin Ratio 0.8 (0.8-1.8); Anion Gap 9.0 mmol/L (3-11); Aspartate Aminotrans (AST/SGOT 4839.0 U/L (12-37); Bilirubin, Total 1.3 mg/dL (0.1-1.0); Blood Urea Nitrogen 46.0 mg/dL (8-24); CO2, Blood 26.0 mmol/L (21-32); Calcium, Blood 8.8 mg/dL (8.5-10.1); Chloride, Blood 103.0 mmol/L (98-108); Creatinine, Blood 1.98 mg/dL (0.60-1.20); Globulin, Blood 3.9 g/dL (2.2-4.0); Glucose, Blood 221.0 mg/dL (70-99); Potassium, Blood 4.5 mmol/L (3.5-5.5); Sodium, Blood 133.0 mmol/L (136-145); Total Protein, Blood 6.9 g/dL (6.4-8.2)
[2024-11-01 16:31] LABS: Vancomycin, Random 16.7 ug/mL
--- NOTE | 2024-11-01 17:44 | NUR ---
SHIFT SUMMARY PT CONTINUES TO HAVE FREQUENT PERIODS OF APNEA WITH DESATURATION TO 60S-80S% AND REQUIRES FREQUENT REMINDERS TO LEAVE OXYMASK IN PLACE. PT IS VERY RESTLESS WHILE SLEEPING AND WAKES UP GASPING. PT PROVIDED EDUCATION AND RISKS OF UNTREATED SLEEP APNEA MULTIPLE TIMES THROUGHOUT THE DAY AND PT CONTINUES TO DECLINE BIPAP AND STS "I'M ALWAYS LIKE THIS". PT IS ALERT AND ORIENTED, PARTICIPATES IN CONVERSATION WHILE AWAKE AND ABLE TO PERFORM ADLS. SINUS ON MONITOR WITH A FEW SHORT RUNS OF VTACH. PT ASYMPTOMATIC DURING THESE EVENTS. BP STABLE THROUGHOUT THE DAY AND DENIES CP. PT HAS TOLERATED PO INTAKE AND HAD MULTIPLE BMS THIS SHIFT. PT C/O SPAIN PAIN THIS AM AND WAS REMOVED. PT HAS VOIDED MULTIPLE TIMES SINCE. PT CONTINUES TO HAVE DISCOMFORT BUT REPORTS IMPROVEMENT SINCE CATH REMOVAL. ULTRASOUND CURRENTLY AT BEDSIDE. CALL LIGHT WITHIN REACH.
[2024-11-01 19:22] LABS: Prothrombin Time Results 17.7 Sec (9.7-11.5)
[2024-11-01 19:58] LABS: Alanine Aminotransfer (ALT/SGP 4176.0 U/L (12-78); Albumin, Blood 2.8 g/dL (3.4-5.0); Albumin/Globulin Ratio 0.7 (0.8-1.8); Anion Gap 11.0 mmol/L (3-11); Aspartate Aminotrans (AST/SGOT 4057.0 U/L (12-37); Bilirubin, Total 1.2 mg/dL (0.1-1.0); Blood Urea Nitrogen 47.0 mg/dL (8-24); CO2, Blood 24.0 mmol/L (21-32); Calcium, Blood 8.6 mg/dL (8.5-10.1); Chloride, Blood 105.0 mmol/L (98-108); Creatinine, Blood 1.85 mg/dL (0.60-1.20); Globulin, Blood 3.8 g/dL (2.2-4.0); Glucose, Blood 169.0 mg/dL (70-99); Potassium, Blood 4.5 mmol/L (3.5-5.5); Sodium, Blood 135.0 mmol/L (136-145); Total Protein, Blood 6.6 g/dL (6.4-8.2)
[2024-11-02] VITALS (44 sets, daily range): BP systolic 101–165; BP diastolic 45–132
[2024-11-02 05:51] LABS: BASOPHILS ABSOLUTE AUTO 0.08 K/mm3 (0.00-0.23); BASOPHILS PERCENT AUTO 0 % (0-2); EOSINOPHILS ABSOLUTE AUTO 0.01 K/mm3 (0.00-0.68); EOSINOPHILS PERCENT AUTO 0 % (0-6); Hematocrit 40.6 % (37.0-53.0); Hemoglobin 13.1 g/dL (13.5-17.5); IMMATURE GRAN ABSOLUTE AUTO 0.82 K/mm3 (0.00-0.10); IMMATURE GRAN PERCENT AUTO 3 % (0-1); LYMPHOCYTES ABSOLUTE AUTO 1.76 K/mm3 (0.84-5.20); LYMPHOCYTES PERCENT AUTO 7 % (21-46); MONOCYTES ABSOLUTE AUTO 1.47 K/mm3 (0.16-1.47); MONOCYTES PERCENT AUTO 6 % (4-13); Mean Corpuscular HGB Conc 32.3 g/dL (31.5-36.5); Mean Corpuscular Volume 93 fL (80-100); NEUTROPHILS ABSOLUTE AUTO 21.23 K/mm3 (1.96-9.15); NEUTROPHILS PERCENT AUTO 84 % (41-73); NRBC ABSOLUTE 0.62 K/mm3 (0.00-0.02); NRBC Auto 2.4 /100 WBC (0.0-0.2); RDW Coefficient Variation 16.4 % (11.7-14.2); RDW Standard Deviation 54.2 fL (35.1-46.3)
[2024-11-02 06:21] LABS: Platelet Count 248 K/mm3 (150-400)
[2024-11-02 06:22] LABS: Alanine Aminotransfer (ALT/SGP 4033.0 U/L (12-78); Albumin, Blood 2.8 g/dL (3.4-5.0); Albumin/Globulin Ratio 0.8 (0.8-1.8); Anion Gap 12.0 mmol/L (3-11); Aspartate Aminotrans (AST/SGOT 2822.0 U/L (12-37); Bilirubin, Total 1.2 mg/dL (0.1-1.0); Blood Urea Nitrogen 50.0 mg/dL (8-24); CO2, Blood 23.0 mmol/L (21-32); Calcium, Blood 8.4 mg/dL (8.5-10.1); Chloride, Blood 104.0 mmol/L (98-108); Creatinine, Blood 1.84 mg/dL (0.60-1.20); Globulin, Blood 3.7 g/dL (2.2-4.0); Glucose, Blood 124.0 mg/dL (70-99); Potassium, Blood 4.7 mmol/L (3.5-5.5); Sodium, Blood 134.0 mmol/L (136-145); Total Protein, Blood 6.5 g/dL (6.4-8.2)
--- NOTE | 2024-11-02 07:00 | NUR ---
ASSUMPTION OF CARE/UPDATE PT IS REPEATEDLY PULLING NC OFF OF FACE DURING SLEEP. PT WOKEN 3 TIMES DURING BEDSIDE REPORT TO PUT NC BACK ON DUE TO DESATURATION TO 70S-80S%. HE IS HAVING APNEIC PERIODS 10-30SEC LONG, UNCHANGED FROM YESTERDAY. PROVIDER AWARE. PT DECLINES BIPAP MASK BUT AGREEABLE TO OXYMASK. WHEN AWAKE, PT IS ALERT AND ORIENTED. HE REPORTS SLEEPING THIS AMOUNT AT HOME AND ALWAYS BEING RESTLESS IN HIS SLEEP. ESTHER EDUCATION PROVIDED. WHEN PT IS AWAKE, SPO2 REMAINS >93%. PT WANTS TO TAKE SHOWER. PT AMBULATED TO SHOWER AND SAT ON SHOWER CHAIR THEN WHEELED BACK TO ROOM AFTER. PT DYSPNEIC AND REPORTS FEELING SHORT OF BREATH WHILE PERFORMING ADLS AT HOME. PT SAT IN RECLINER TO EAT BREAKFAST. MULTIPLE VOIDS AND BMS THIS MORNING. PT ENCOURAGED TO USE CALL LIGHT WHEN UP IN ROOM FOR CORD MANAGEMENT AND INTERMITTENT UNSTEADY GAIT. PT CURRENTLY RESTING IN BED, CALL LIGHT WITHIN REACH.
[2024-11-02] MEDS ORDERED: CefTRIAXone Sodium 1,000 MG in NS 100 ML IV SCH (11:30)
[2024-11-02] MEDS ORDERED: DOBUtamine 250 MG/D5W 250 ML 250 ML IV SCH (12:05)
--- NOTE | 2024-11-02 13:44 | NUR ---
UPDATE PT CONTINUES TO PULL OXYMASK OFF WHILE ASLEEP. PT ENCOURAGED TO WEAR BIPAP AND AGREES. BIPAP SETTINGS 02/07 30%. PT CONTINUES TO PICK AT MASK AND REPOSITION OFTEN BUT DOES NOT REMOVE MASK DURING SLEEP. DOBUTAMINE GTT STARTED THIS AFTERNOON. BED IN LOW POSITION, CALL LIGHT WITHIN REACH.
[2024-11-02] MEDS ORDERED: Furosemide 10 MG / ML 2ML Vial IV ONE (15:55)
--- NOTE | 2024-11-02 18:10 | NUR ---
SHIFT SUMMARY PT RECEIVING DOBUTAMINE 3MCG/KG/MIN. SLOWLY TITRATING TO GOAL OF 5MCG/KG/MIN. PT TOLERATING WELL, OCCASIONAL PVCS. PT DENIES CP OR PALPITATIONS. HE WORE THE BIPAP MASK FOR A FEW HOURS THIS AFTERNOON AND IS NOW BACK ON THE OXYMASK WITH 8L. PT CONTINUES TO REQUIRE FREQUENT REMINDERS TO KEEP MASK IN PLACE. HE DENIES SOB DESPITE APNEIC PERIODS AND DESATURATION. PT TOLERATING PO INTAKE. PT HAS HAD SEVERAL SEMI-INCONTINENT STOOLS AND VOIDS THIS SHIFT. BED IN LOW POSITION, CALL LIGHT WITHIN REACH. PT'S PARTNER ALIREZA CALLED THIS EVENING AND PROVIDED UPDATE.
[2024-11-03] VITALS (29 sets, daily range): BP systolic 103–151; BP diastolic 54–96
--- NOTE | 2024-11-03 | NUR ---
ATTEMPT AT BIPAP PT PLACED ON BIPAP BY RT, LASTED ABOUT 3 MIN BEFORE HE STARTED FLOPPING AROUND IN THE BED AND THEN TOOK IT OFF. WE DID THIS ABOUT 5 TIMES AND HE KEPT SAYING THAT HE "FEELS LIKE HE'S BEING SUFFOCATED" EVEN THOUGH RT TRIED MULTIPLE MASK DESIGNS ON HIM. I PUT THE OXYMASK 6L BACK ON HIM.
[2024-11-03 05:17] LABS: BASOPHILS ABSOLUTE AUTO 0.07 K/mm3 (0.00-0.23); BASOPHILS PERCENT AUTO 0 % (0-2); EOSINOPHILS ABSOLUTE AUTO 0.00 K/mm3 (0.00-0.68); EOSINOPHILS PERCENT AUTO 0 % (0-6); Hematocrit 37.7 % (37.0-53.0); Hemoglobin 12.4 g/dL (13.5-17.5); IMMATURE GRAN ABSOLUTE AUTO 0.76 K/mm3 (0.00-0.10); IMMATURE GRAN PERCENT AUTO 4 % (0-1); LYMPHOCYTES ABSOLUTE AUTO 1.40 K/mm3 (0.84-5.20); LYMPHOCYTES PERCENT AUTO 7 % (21-46); MONOCYTES ABSOLUTE AUTO 1.40 K/mm3 (0.16-1.47); MONOCYTES PERCENT AUTO 7 % (4-13); Mean Corpuscular HGB Conc 32.9 g/dL (31.5-36.5); Mean Corpuscular Volume 92 fL (80-100); NEUTROPHILS ABSOLUTE AUTO 17.23 K/mm3 (1.96-9.15); NEUTROPHILS PERCENT AUTO 83 % (41-73); NRBC ABSOLUTE 0.74 K/mm3 (0.00-0.02); NRBC Auto 3.5 /100 WBC (0.0-0.2); Platelet Count 247 K/mm3 (150-400); RDW Coefficient Variation 15.9 % (11.7-14.2); RDW Standard Deviation 51.8 fL (35.1-46.3)
[2024-11-03 06:31] LABS: Alanine Aminotransfer (ALT/SGP 2999.0 U/L (12-78); Albumin, Blood 2.8 g/dL (3.4-5.0); Albumin/Globulin Ratio 0.8 (0.8-1.8); Anion Gap 12.0 mmol/L (3-11); Aspartate Aminotrans (AST/SGOT 1166.0 U/L (12-37); Bilirubin, Total 0.8 mg/dL (0.1-1.0); Blood Urea Nitrogen 39.0 mg/dL (8-24); CO2, Blood 25.0 mmol/L (21-32); Calcium, Blood 8.3 mg/dL (8.5-10.1); Chloride, Blood 103.0 mmol/L (98-108); Creatinine, Blood 1.14 mg/dL (0.60-1.20); Globulin, Blood 3.5 g/dL (2.2-4.0); Glucose, Blood 156.0 mg/dL (70-99); Potassium, Blood 4.5 mmol/L (3.5-5.5); Sodium, Blood 135.0 mmol/L (136-145); Total Protein, Blood 6.3 g/dL (6.4-8.2)
[2024-11-03] MEDS ORDERED: Furosemide 10 MG / ML 2ML Vial IV ONE (12:45)
--- NOTE | 2024-11-03 17:28 | NUR ---
SHIFT SUMMARY NEURO: ALERT AND ORIENTED X 3-4, DOES NOT ALWAYS RECALL THE DATE. MOVES ALL HIS EXTREMITIES WELL. IMPULSIVE, DOES NOT CALL APPROPRIATELY. CARDIAC: SINUS RHYTHM WITH FREQUENT PVCS. SBP: 120S-140S. HR 80-100S. DENIES ANY CP. DOBUTAMINE OFF AT 1320. CARDIOLOGY IN TO SEE PT TODAY. PULM: LUNGS DIM/CLEAR, ON O2 VIA NC/OXYMASK AT 4-5LPM DUE TO SOB. OTHERWISE O2 SATS >95% ON RA, WHEN HE FALLS ASLEEP HE TENDS TO DESAT. +SOB COMPLAINTS THOUGH OUT THE DAY, STATED HE WAS FEELING ANXIOUS. EDUCATION PROVIDED ON BIPAP THROUGH OUT THE DAY AND OFFERED BIPAP MULTIPLE TIMES BUT PT REFUSED. SOB IS INTERMITTENT. PRN ANXIETY PO MED X 1 DOSE. GI: 5 BM TODAY, SOFT/BROWN. UP TO COMMODE, NO INCONTINENCE THIS SHIFT. : USING URINAL AND COMMODE AT BEDSIDE. SKIN: NO CHANGES. FAMILY INTO VISIT TODAY , GIVEN UPDATE ON PLAN OF CARE. PT NOW PCU STATUS
--- NOTE | 2024-11-03 20:06 | NUR ---
ASSUMPTION OF CARE: ASSUMED CARE AT START OF SHIFT (1899). PT IS DOING WELL AND RESTING IN BED. PT IS ALERT AND ABLE TO FOLLOW COMMANDS. PT IS VERY IMPULSIVE AND WILL RIP OF WELFARE CASE WORKER AND OXYGEN EQIPMENT WHNE FRUSTRATED. PT STATES THAT THEY ARE HAVING TROUBLE BREATHING BUT THEY CONTINUE TO TAKE THEIR NC OFF THEIR FACE. LUNG SOUNDS ARE DIMINISHED IN THE THE BASES. SPO2 >95% ON RA, SUPPOSE TO BE ON A NC @ 5LPM. PT STATES THAT THEY ARE WILLING TO TRY WEARING A BIPAP MASK AGAIN. SINUS RYTHM WITH SBP: 130'S MAP >65 HR: 70'S. IV: POWERGLIDE IN LUE. PT IS ABLE TO GET UP AND USE BEDSIDE COMMODE. LINES AND CORDS PLACED OUT OF REACH. CALL LIGHT PLACED WITHIN REACH.
--- NOTE | 2024-11-03 22:48 | NUR ---
ARRRIVAL TO UNIT: PT ARRIVED TO ICU FROM [facility] AT 2100. PT TRANSPORTED VIA HOSPITAL BED. REPORT WAS RECEIVED FROM PCU AND [facility] RN. PT IS ALERT AND ORIENTED AND FOLLOWING COMMANDS. PT HAS PE IN BOTH LUNGS AND IS RECEIVEING TPA GTT PER EMR ORDERS. SHEATH LEFT IN PLACE VIA RIJ. PT WILL RETURN TO [facility] TOMORROW. PT DENIES ANY PAIN, CP, OR SOB AT THIS TIME. LUNG SOUNDS ARE CLEAR AND EQUAL, ON O2 MASK @ 5LPM AND SPO2 >95%. PT WEARS A CPAP AT NIGHT WHILE SLEEPING BUT IS UNABLE TO TONIGHT DUE TO RIJ PLACEMENT. SINUS RYTHM WITH SBP: 120'S MAP >65 HR: 80'S. IV: RIJ AND POWERGLIDE IN RUE. SKIN: PT HAS BRUISING ON LUE AND REDNESS UNDER SKIN FOLDS, PICTURE HAVE BEEN TAKEN AND PLACED IN CHART. LINES, CORDS, AND TUBES PLACED OUT OF REACH. CALL LIGHT PLACED WITHIN REACH.
[2024-11-04] VITALS (8 sets, daily range): BP systolic 116–162; BP diastolic 78–147
[2024-11-04 05:03] LABS: BASOPHILS ABSOLUTE AUTO 0.12 K/mm3 (0.00-0.23); BASOPHILS PERCENT AUTO 1 % (0-2); EOSINOPHILS ABSOLUTE AUTO 0.01 K/mm3 (0.00-0.68); EOSINOPHILS PERCENT AUTO 0 % (0-6); Hematocrit 40.6 % (37.0-53.0); Hemoglobin 12.9 g/dL (13.5-17.5); IMMATURE GRAN ABSOLUTE AUTO 0.74 K/mm3 (0.00-0.10); IMMATURE GRAN PERCENT AUTO 3 % (0-1); LYMPHOCYTES ABSOLUTE AUTO 1.74 K/mm3 (0.84-5.20); LYMPHOCYTES PERCENT AUTO 7 % (21-46); MONOCYTES ABSOLUTE AUTO 1.61 K/mm3 (0.16-1.47); MONOCYTES PERCENT AUTO 6 % (4-13); Mean Corpuscular HGB Conc 31.8 g/dL (31.5-36.5); Mean Corpuscular Volume 91 fL (80-100); NEUTROPHILS ABSOLUTE AUTO 20.80 K/mm3 (1.96-9.15); NEUTROPHILS PERCENT AUTO 83 % (41-73); NRBC ABSOLUTE 2.02 K/mm3 (0.00-0.02); NRBC Auto 8.1 /100 WBC (0.0-0.2); Platelet Count 274 K/mm3 (150-400); RDW Coefficient Variation 16.3 % (11.7-14.2); RDW Standard Deviation 53.1 fL (35.1-46.3)
--- NOTE | 2024-11-04 06:13 | NUR ---
SHIFT SUMMARY: PT IS DOING WELL. THEY WERE NOT ABLE TO SLEEP DURING THE NIGHT. PT STATES THAT THEY FEEL LIKE THEY CAN'T BREATHE, BUT PT IS NONCOMPLIANT WITH WEARING OXYGEN EQUIPTMENT AND DOESN'T BELIEVE THAT OXYGEN WILL HELP. THEIR SPO2 >90% ON RA BUT SPO2 WILL DROP DOWN INTO THE 70'S VERY BRIEFLY BEFORE RETURNING TO THE 90'S. SINUS RYTHM, SBP: 130'S MAP >65 HR: 80'S. 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 PT IS ABLE TO USE BEDSIDE COMMODE. TRIED TO KEEP LINES AND CORDS OUT OF REACH, BUT PT MOVES AROUND SO FRQUENTLY IN BED, PT CONTINUES TO GET TANGLED IN CORDS. CALL LIGHT PLACED WITHIN REACH. PT WILL OCCASIONALLY USE CALL LIGHT BUT USUALLY WILL YELL OUT FOR HELP.
[2024-11-04 06:41] LABS: Alanine Aminotransfer (ALT/SGP 2203.0 U/L (12-78); Albumin, Blood 2.9 g/dL (3.4-5.0); Albumin/Globulin Ratio 0.8 (0.8-1.8); Anion Gap 10.0 mmol/L (3-11); Aspartate Aminotrans (AST/SGOT 464.0 U/L (12-37); Bilirubin, Total 0.7 mg/dL (0.1-1.0); Blood Urea Nitrogen 40.0 mg/dL (8-24); CO2, Blood 24.0 mmol/L (21-32); Calcium, Blood 8.5 mg/dL (8.5-10.1); Chloride, Blood 104.0 mmol/L (98-108); Creatinine, Blood 1.16 mg/dL (0.60-1.20); Globulin, Blood 3.7 g/dL (2.2-4.0); Glucose, Blood 154.0 mg/dL (70-99); Potassium, Blood 4.8 mmol/L (3.5-5.5); Sodium, Blood 133.0 mmol/L (136-145); Total Protein, Blood 6.6 g/dL (6.4-8.2)
[2024-11-04] MEDS ORDERED: Albuterol 2.5 MG/3 ML VIAL INH PRN (15:15)
[2024-11-04] MEDS ORDERED: Albuterol 2.5 MG/3 ML VIAL ONE (15:17)
--- NOTE | 2024-11-04 16:24 | NUR ---
PROVIDED ADVANCED DIRECTIVE TO PATIENT
[2024-11-04] MEDS ORDERED: FentaNYL Citrate 50 MCG/ML 2 ML Injection IV PRN (18:20)
--- NOTE | 2024-11-04 18:47 | NUR ---
Summary. Pt remained in bed this shift. Pt refusing to wear 02 or bipap, sats ok this shift. Pt c/o fatigue and inability to "catch my breath". No acute events this shift, on full liquid diet for bowel rest. Pt up to shower this afternoon, able to ambulate w/out difficulty. See chart for further details.
--- NOTE | 2024-11-04 19:55 | NUR ---
ASSUMPTION OF CARE ASSUMED PT'S CARE AT 1950.BEDSIDE REPORT COMPLETED.PT LAYING ON HIS LEFT SIDE,OPENS EYES TO VOICE.PLAN OF CARE REVIEWED,PT DENIES PAIN,DENIES NUMBNESS/TINGLING,DENIES NAUSEA,DENIES NEEDS AT THIS TIME.CALL LIGHT AND PT'S ITEMS WITHIN REACH.MONITORING ONGOING PER CAREPLAN.
[2024-11-05] VITALS (14 sets, daily range): BP systolic 89–129; BP diastolic 32–95
[2024-11-05 03:27] LABS: BASOPHILS ABSOLUTE AUTO 0.08 K/mm3 (0.00-0.23); BASOPHILS PERCENT AUTO 0 % (0-2); EOSINOPHILS ABSOLUTE AUTO 0.01 K/mm3 (0.00-0.68); EOSINOPHILS PERCENT AUTO 0 % (0-6); Hematocrit 42.8 % (37.0-53.0); Hemoglobin 13.8 g/dL (13.5-17.5); IMMATURE GRAN ABSOLUTE AUTO 0.75 K/mm3 (0.00-0.10); IMMATURE GRAN PERCENT AUTO 3 % (0-1); LYMPHOCYTES ABSOLUTE AUTO 2.33 K/mm3 (0.84-5.20); LYMPHOCYTES PERCENT AUTO 10 % (21-46); MONOCYTES ABSOLUTE AUTO 2.36 K/mm3 (0.16-1.47); MONOCYTES PERCENT AUTO 10 % (4-13); Mean Corpuscular HGB Conc 32.2 g/dL (31.5-36.5); Mean Corpuscular Volume 93 fL (80-100); NEUTROPHILS ABSOLUTE AUTO 18.16 K/mm3 (1.96-9.15); NEUTROPHILS PERCENT AUTO 77 % (41-73); NRBC ABSOLUTE 3.56 K/mm3 (0.00-0.02); NRBC Auto 15.0 /100 WBC (0.0-0.2); Platelet Count 295 K/mm3 (150-400); RDW Coefficient Variation 16.6 % (11.7-14.2); RDW Standard Deviation 54.5 fL (35.1-46.3)
[2024-11-05 03:54] LABS: Alanine Aminotransfer (ALT/SGP 1693.0 U/L (12-78); Albumin, Blood 2.9 g/dL (3.4-5.0); Albumin/Globulin Ratio 0.8 (0.8-1.8); Anion Gap 12.0 mmol/L (3-11); Aspartate Aminotrans (AST/SGOT 268.0 U/L (12-37); Bilirubin, Total 1.2 mg/dL (0.1-1.0); Blood Urea Nitrogen 44.0 mg/dL (8-24); CO2, Blood 22.0 mmol/L (21-32); Calcium, Blood 8.8 mg/dL (8.5-10.1); Chloride, Blood 103.0 mmol/L (98-108); Creatinine, Blood 1.16 mg/dL (0.60-1.20); Globulin, Blood 3.7 g/dL (2.2-4.0); Glucose, Blood 161.0 mg/dL (70-99); Potassium, Blood 5.3 mmol/L (3.5-5.5); Sodium, Blood 132.0 mmol/L (136-145); Total Protein, Blood 6.6 g/dL (6.4-8.2)
--- NOTE | 2024-11-05 06:15 | NUR ---
PT MONITORED DURING THE SHIFT.PT HAS BEEN RESTLESS,TOSSING AND TURNING IN BED,GETTING THE WIRES AND CORDS TANGLED,MOANING AND GROANING.PT SLEPT BRIEFLY AFTER RECEIVING PRN FENTANYL.PT STATES THAT DURING THE PREVIOUS ADMISSION FENTANYL WAS NOT EFFECTIVE IN CONTROLLING HIS PAIN.PT STATES THAT "OXY 10S" WORKED BETTER AND THAT HE WAS ABLE TO SLEEP.PT NOT COMPLAINT,REFUSED TO WEAR THE OXYGEN DESPITE HIS OXYGEN SATURATION DROPPING DOWN TO 70'S DURING APNEIC EPISODES.PT EDUCATED ON THE NEED TO WEAR THE OXYGEN TO KEEP IS OXYGEN SATURATION >92%.PT VERBALIZES UNDERSTANDING BUT CONTINUED TO TAKE OFF THE NASAL CANNULA.PT INDEPENDENT IN ROOM,ABLE TO GET OUT OF BED TO THE TOILET WITHOUT DIFFICULTY.PT RESTING IN BED,LAYING ON HIS LEFT SIDE.PT GIVEN A WARM BLANKET PER REQUEST.DENIES FURTHER NEEDS.MONITORING ONGOING PER CAREPLAN.CALL LIGHT AND PT'S ITEMS WITHIN REACH.
[2024-11-05] MEDS ORDERED: Torsemide 20 MG TAB PO SCH (09:00)
--- NOTE | 2024-11-05 18:15 | NUR ---
Summary. Pt rested in bed this shift, no acute events. Independent in room except for assistance with cords. Pt ambulates independently. See chart for details.
[2024-11-06] VITALS (9 sets, daily range): BP systolic 95–151; BP diastolic 72–127
[2024-11-06 03:39] LABS: BASOPHILS ABSOLUTE AUTO 0.10 K/mm3 (0.00-0.23); BASOPHILS PERCENT AUTO 0 % (0-2); EOSINOPHILS ABSOLUTE AUTO 0.32 K/mm3 (0.00-0.68); EOSINOPHILS PERCENT AUTO 1 % (0-6); Hematocrit 42.1 % (37.0-53.0); Hemoglobin 13.7 g/dL (13.5-17.5); IMMATURE GRAN ABSOLUTE AUTO 0.84 K/mm3 (0.00-0.10); IMMATURE GRAN PERCENT AUTO 4 % (0-1); LYMPHOCYTES ABSOLUTE AUTO 3.67 K/mm3 (0.84-5.20); LYMPHOCYTES PERCENT AUTO 16 % (21-46); MONOCYTES ABSOLUTE AUTO 2.65 K/mm3 (0.16-1.47); MONOCYTES PERCENT AUTO 12 % (4-13); Mean Corpuscular HGB Conc 32.5 g/dL (31.5-36.5); Mean Corpuscular Volume 92 fL (80-100); NEUTROPHILS ABSOLUTE AUTO 15.50 K/mm3 (1.96-9.15); NEUTROPHILS PERCENT AUTO 67 % (41-73); NRBC ABSOLUTE 2.51 K/mm3 (0.00-0.02); NRBC Auto 10.9 /100 WBC (0.0-0.2); Platelet Count 290 K/mm3 (150-400); RDW Coefficient Variation 16.7 % (11.7-14.2); RDW Standard Deviation 55.0 fL (35.1-46.3)
[2024-11-06 04:41] LABS: Alanine Aminotransfer (ALT/SGP 1232.0 U/L (12-78); Albumin, Blood 2.8 g/dL (3.4-5.0); Albumin/Globulin Ratio 0.8 (0.8-1.8); Anion Gap 11.0 mmol/L (3-11); Aspartate Aminotrans (AST/SGOT 171.0 U/L (12-37); Bilirubin, Total 1.3 mg/dL (0.1-1.0); Blood Urea Nitrogen 41.0 mg/dL (8-24); CO2, Blood 23.0 mmol/L (21-32); Calcium, Blood 8.0 mg/dL (8.5-10.1); Chloride, Blood 104.0 mmol/L (98-108); Creatinine, Blood 1.07 mg/dL (0.60-1.20); Globulin, Blood 3.5 g/dL (2.2-4.0); Glucose, Blood 158.0 mg/dL (70-99); Potassium, Blood 4.3 mmol/L (3.5-5.5); Sodium, Blood 134.0 mmol/L (136-145); Total Protein, Blood 6.3 g/dL (6.4-8.2)
--- NOTE | 2024-11-06 05:57 | NUR ---
SHIFT SUMMARY PATIENT IN A LOT OF PAIN AT BEGINING OF SHIFT. PATIENT UP AND DOWN TO TOILET AND REPOSTIONS HIMSELF WITHOUT CALLING FOR HELP. PATEINT DOES NOT LIKE THE CORDS FOR THE MONITOR AND ONLY AGREES TO WEAR 5 LEAD. PATIENT WILL LET YOU TAKE VITALS BUT WANTS THE BLOODPRESSURE CUFF AND O2 SENSOR TAKING OFF WHEN DONE. PATIENT HAD A 1 TIME PAIN MED PER DR. NICOLE AND PATIENT SLEPT FOR AWHILE WITHOUT MOANING OR HAVING TO REPOSTION HIMSELF. PATIENT IS A&O X4 AND AFERIBLE THROUGH SHIFT. HR IN THE 70-80'S AND SBP 110-120'S. HAS LEFT UPPER POWERGLIDE AND SALINE LOCKED. USE RESTROOM IN ROOM. CALL LIGHT WITHIN REACH.
--- NOTE | 2024-11-06 19:52 | NUR ---
ASSUMPTION OF CARE: ASSUMED CARE OF PT AT 1910. PT IN THE ROOM UPSET AND CRYING, STATING "I CANNOT DO THIS ANYMORE", "MY FAMILY WON'T SPEAK TO ME", "I AM AT THE POINT OF CAUSING HARM TO MYSELF IF THEY DO NOT ANSWER THE PHONE". CALL PLACED TO PT S.O AND UPDATED TO PT CONDITION AND STATEMENTS MADE. S.O STATES SHE WILL CALL THE PT IN TWENTY MINUTES WHEN THINGS SETTLE DOWN AT HOME. INTERNAL GRINDER SET UP OPERATOR AWARE OF PT STATEMENTS. PT CURRENTLY DENYING ANY SI. PT ALERT AND ORIENTED, FOLLOWS DIRECTION. ON RA WITH SPO2 90-94%. DENIES SOB. CRACKLES HEARD T/O. MOLD MAKER HELPER IN PLACE, SR WITH HR 70'S. SBP 117. DENIES CP. PT'S EXTREMETIES COOL AND DUSKY IN APPEARANCE. PT STATES THIS TO BE NORMAL. POWERGLIDE TO ZAHIDA PATENT AND SALINE LOCKED. VOIDING IND INTO TOILET. TOLERATING PO INTAKE. BED LOCKED, CALL LIGHT IN REACH.
[2024-11-07 03:27] VITALS: BP 102/64
[2024-11-07 03:51] LABS: Hematocrit 41.5 % (37.0-53.0); Hemoglobin 13.3 g/dL (13.5-17.5); Mean Corpuscular HGB Conc 32.0 g/dL (31.5-36.5); Mean Corpuscular Volume 90 fL (80-100); NRBC ABSOLUTE 1.82 K/mm3 (0.00-0.02); NRBC Auto 8.6 /100 WBC (0.0-0.2); Platelet Count 295 K/mm3 (150-400); RDW Coefficient Variation 16.6 % (11.7-14.2); RDW Standard Deviation 53.4 fL (35.1-46.3)
[2024-11-07 04:12] LABS: Alanine Aminotransfer (ALT/SGP 893.0 U/L (12-78); Albumin, Blood 2.7 g/dL (3.4-5.0); Albumin/Globulin Ratio 0.8 (0.8-1.8); Anion Gap 12.0 mmol/L (3-11); Aspartate Aminotrans (AST/SGOT 109.0 U/L (12-37); Bilirubin, Total 1.9 mg/dL (0.1-1.0); Blood Urea Nitrogen 35.0 mg/dL (8-24); CO2, Blood 22.0 mmol/L (21-32); Calcium, Blood 8.1 mg/dL (8.5-10.1); Chloride, Blood 102.0 mmol/L (98-108); Creatinine, Blood 1.15 mg/dL (0.60-1.20); Globulin, Blood 3.4 g/dL (2.2-4.0); Glucose, Blood 145.0 mg/dL (70-99); Potassium, Blood 4.2 mmol/L (3.5-5.5); Sodium, Blood 132.0 mmol/L (136-145); Total Protein, Blood 6.1 g/dL (6.4-8.2)
[2024-11-07 04:19] LABS: BAND PERCENT MAN 4 % (0-8); BASOPHILS ABSOLUTE MAN 0.00 K/mm3 (0.00-0.23); BASOPHILS PERCENT MAN 0 % (0-2); EOSINOPHILS ABSOLUTE MAN 0.42 K/mm3 (0.00-0.68); EOSINOPHILS PERCENT MAN 2 % (0-6); LYMPHOCYTES ABSOLUTE MAN 3.99 K/mm3 (0.84-5.20); LYMPHOCYTES PERCENT MAN 19 % (21-46); METAMYELOCYTE ABSOLUTE MAN 0.42 K/mm3 (0.00-0.00); METAMYELOCYTE PERCENT MAN 2 % (0-0); MONOCYTES ABSOLUTE MAN 1.68 K/mm3 (0.16-1.47); MONOCYTES PERCENT MAN 8 % (4-13); NEUTROPHILS ABSOLUTE MAN 14.52 K/mm3 (1.96-9.15); SEG NEUTROPHILS PERCENT MAN 65 % (41-73)
--- NOTE | 2024-11-07 06:27 | NUR ---
SHIFT SUMMARY: NO ACUTE CHANGES OVERNIGHT. NEURO STATUS UNCHANGED, PT ABLE TO SPEAK WITH HIS S.O. THIS SHIFT. DENIES WANTING TO HARM HIMSELF. ABLE TO TRANSFER TO TOILET IND IN ROOM. VOIDING FREQUENTLY THIS SHIFT. NO BM. TOLERATING PO INTAKE. C/O GENERALIZED PAIN THIS SHIFT, MEDICATED PER EMAR. PT REMAINS SR WITH HR 70'S. SBP 90-100'S WITH CHECKS. NO C/O CP. REFUSING TO WEAR CONTINUOUS SPO2 MONITOR, MID 90'S WITH SPOT CHECKS. POWERGLIDE TO ZAHIDA PATENT, DOES NOT DRAW BACK. BED LOCKED, CALL LIGHT IN REACH
[2024-11-07 07:45] VITALS: BP 144/99
--- NOTE | 2024-11-07 10:36 | NUR ---
DR. RODRÍGUEZ TO ROOM FOR PT EVAL. POSSIBLE DC DISCUSSED, PENDING HOME O2 REQUIREMENTS
[2024-11-07 12:00] VITALS: BP 121/107
[2024-11-07 16:19] VITALS: BP 104/74
--- NOTE | 2024-11-07 17:14 | NUR ---
SHIFT SUMMARY NO ACUTE EVENTS TODAY. PT ALERT ORIENTED AND INDEPENDENT IN ROOM W/ TOILETING AND MEALS. PT ON ROOM AIR, MAINTAINING SATS>95%. NSR VIA CONTINUOUS MONITOR, BP STABLE W/ MAPS>65. PT AFEBRILE. PT MEDICATED W/ PRN PO MEDS FOR GENERALIZED PAIN. PT PENDING DC- AWAITING FITTING FOR LIFE VEST. CALL LIGHT W/ IN REACH.
--- NOTE | 2024-11-07 17:33 | NUR ---
REP FROM [facility] TO ROOM FOR PT FITTING
[2024-11-07] MEDS ORDERED: AMOCLA875 PO (18:32)
[2024-11-07] MEDS ORDERED: LACT PO (18:32)
[2024-11-07] MEDS ORDERED: JARDIANCE10 MG PO (18:33)
[2024-11-07 19:49] VITALS: BP 104/74
--- NOTE | 2024-11-07 19:58 | NUR ---
DISCHARGED PATIENT WAS DISCHARGED WITH [facility]O. PATIENT HAD BELONGINGS, DISCHARGE INSTRUCTIONS AND INFORMATION ABOUT FOLLOW UP APPOINTMENTS AND NEW MEDICTAIONS. PATIENT HAD LIFE VEST BOX AND INFORMATION. PATIENT IN WHEELCHAIR TO CAR.
== END 2024-11-07 19:49 | disposition home or self-care (01) | DRG 871 ==
LOC: ER 22:18 → MEDS 22:19 → ICUE 10-30 15:20 → MEDS 10-30 22:21 → ICUE 10-31 02:50 → PCU 10-31 16:13 → ICUE 11-01 01:15
PROVIDERS: Emergency Medicine; Family Medicine; Nurse Practitioner Acute Care; Student in an Organized Health Care Education/Training Program; ADMIT Internal Medicine
PROC: 3E03329 Introduction of Other Anti-infective into Peripheral Vein, Percutaneous Approach (ICD-10-PCS; principal; 2024-10-30)
PROC: 5A09357 Assistance with Respiratory Ventilation, Less than 24 Consecutive Hours, Continuous Positive Airway Pressure (ICD-10-PCS; 2024-10-30)
PROC: 0T9B70Z Drainage of Bladder with Drainage Device, Via Natural or Artificial Opening (ICD-10-PCS; 2024-11-01)
PROC: 3E033XZ Introduction of Vasopressor into Peripheral Vein, Percutaneous Approach (ICD-10-PCS; 2024-11-02)
DX: A41.9 Sepsis, unspecified organism (principal); I50.23 Acute on chronic systolic (congestive) heart failure; J18.9 Pneumonia, unspecified organism; J96.01 Acute respiratory failure with hypoxia; K85.90 Acute pancreatitis without necrosis or infection, unspecified; N17.9 Acute kidney failure, unspecified; I47.20 Ventricular tachycardia, unspecified; J44.1 Chronic obstructive pulmonary disease with (acute) exacerbation; J44.0 Chronic obstructive pulmonary disease with (acute) lower respiratory infection; Z68.41 Body mass index [BMI] 40.0-44.9, adult; I13.0 Hypertensive heart and chronic kidney disease with heart failure and stage 1 through stage 4 chronic kidney disease, or unspecified chronic kidney disease; I25.10 Atherosclerotic heart disease of native coronary artery without angina pectoris; N18.9 Chronic kidney disease, unspecified; G47.33 Obstructive sleep apnea (adult) (pediatric); F17.200 Nicotine dependence, unspecified, uncomplicated; R65.20 Severe sepsis without septic shock; F15.10 Other stimulant abuse, uncomplicated; I27.20 Pulmonary hypertension, unspecified; K21.9 Gastro-esophageal reflux disease without esophagitis; K76.1 Chronic passive congestion of liver; E66.9 Obesity, unspecified; F14.10 Cocaine abuse, uncomplicated; I50.82 Biventricular heart failure; G89.29 Other chronic pain; M54.9 Dorsalgia, unspecified; I25.5 Ischemic cardiomyopathy; R73.9 Hyperglycemia, unspecified; I95.9 Hypotension, unspecified; I25.2 Old myocardial infarction; Z86.73 Personal history of transient ischemic attack (TIA), and cerebral infarction without residual deficits; Z95.5 Presence of coronary angioplasty implant and graft; Z71.51 Drug abuse counseling and surveillance of drug abuser; Z79.82 Long term (current) use of aspirin; Z79.02 Long term (current) use of antithrombotics/antiplatelets; Z71.6 Tobacco abuse counseling
CPT/HCPCS: 36415; 51702; 71045; 71046; 71260; 74176; 76705; 80053; 80061; 80202; 81001; 82803; 82947; 83605; 83690; 83735; 83880; 84100; 84132; 84145; 84300; 84484; 85025; 85610; 87040; 87077; 87637; 93005; 93010; 93975; 94640; 94660; 94664; 94760; 94761; 94762; 96365; 96374; 96375; 96376; 99285-25; A9270; C1751; C8929; G0378; G0480; J0456; J0696; J1250; J1644; J1885; J1938; J2060; J2405; J2543; J2919; J3010; J3373; J7030; J7040; J7050; Q0177; Q9957; Q9967

== ENCOUNTER 2024-11-08 07:54 | Inpatient (IN) | payer OTHER ==
[~2024-11-08] VITALS: Ht 177.8 cm; Wt 114.7 kg
[~2024-11-08 07:54] MED LIST changes: +LACT PO
[2024-11-08 08:43] LABS: Hematocrit 41.0 % (37.0-53.0); Hemoglobin 13.2 g/dL (13.5-17.5); Mean Corpuscular HGB Conc 32.2 g/dL (31.5-36.5); Mean Corpuscular Volume 92 fL (80-100); NRBC ABSOLUTE 0.09 K/mm3 (0.00-0.02); NRBC Auto 0.4 /100 WBC (0.0-0.2); Platelet Count 276 K/mm3 (150-400); RDW Coefficient Variation 17.0 % (11.7-14.2); RDW Standard Deviation 55.8 fL (35.1-46.3)
[2024-11-08] MEDS ORDERED: Ketorolac Tromethamine 30mg Vial IM ONE (09:00)
[2024-11-08] MEDS ORDERED: Ipratropium/Albuterol SulF 2.5-0.5MG/3 ML Amp INH ONE (09:00)
[2024-11-08 09:04] LABS: Alanine Aminotransfer (ALT/SGP 583.0 U/L (12-78); Albumin, Blood 2.5 g/dL (3.4-5.0); Albumin/Globulin Ratio 0.7 (0.8-1.8); Anion Gap 8.0 mmol/L (3-11); Aspartate Aminotrans (AST/SGOT 82.0 U/L (12-37); Bilirubin, Total 1.3 mg/dL (0.1-1.0); Blood Urea Nitrogen 25.0 mg/dL (8-24); CO2, Blood 24.0 mmol/L (21-32); Calcium, Blood 7.8 mg/dL (8.5-10.1); Chloride, Blood 104.0 mmol/L (98-108); Creatinine, Blood 1.06 mg/dL (0.60-1.20); Globulin, Blood 3.7 g/dL (2.2-4.0); Glucose, Blood 139.0 mg/dL (70-99); Potassium, Blood 4.2 mmol/L (3.5-5.5); Sodium, Blood 132.0 mmol/L (136-145); Total Protein, Blood 6.2 g/dL (6.4-8.2)
[2024-11-08 09:05] LABS: BAND PERCENT MAN 1 % (0-8); BASOPHILS ABSOLUTE MAN 0.00 K/mm3 (0.00-0.23); BASOPHILS PERCENT MAN 0 % (0-2); EOSINOPHILS ABSOLUTE MAN 0.21 K/mm3 (0.00-0.68); EOSINOPHILS PERCENT MAN 1 % (0-6); LYMPHOCYTES ABSOLUTE MAN 2.79 K/mm3 (0.84-5.20); LYMPHOCYTES PERCENT MAN 13 % (21-46); METAMYELOCYTE ABSOLUTE MAN 0.43 K/mm3 (0.00-0.00); METAMYELOCYTE PERCENT MAN 2 % (0-0); MONOCYTES ABSOLUTE MAN 1.29 K/mm3 (0.16-1.47); MONOCYTES PERCENT MAN 6 % (4-13); MYELOCYTE ABSOLUTE MAN 0.21 K/mm3 (0.00-0.00); MYELOCYTE PERCENT MAN 1 % (0-0); NEUTROPHILS ABSOLUTE MAN 16.55 K/mm3 (1.96-9.15); SEG NEUTROPHILS PERCENT MAN 76 % (41-73)
[2024-11-08] MEDS ORDERED: Furosemide 10 MG / ML 2ML Vial IV ONE (13:20)
[2024-11-08 15:35] LABS: U Amphetamine Screen Not Detected; U Barbituate Screen Not Detected; U Benzodiazapine Screen Not Detected; U Buprenorphine Screen Not Detected; U Cannabinoids Screen Not Detected; U Cocaine Screen Not Detected; U Methadone Screen Not Detected; U Methamphetamine Screen Not Detected; U Opiates Screen Not Detected; U Oxycodone Screen DETECTED; U Phencyclidine Screen Not Detected
[2024-11-08] MEDS ORDERED: Piperacillin/Tazobactam Sod 4.5 GM in NS 100 ML IV SCH (18:00)
[2024-11-08] MEDS ORDERED: Ipratropium/Albuterol SulF 2.5-0.5MG/3 ML Amp INH PRN (19:10)
--- NOTE | 2024-11-08 19:22 | NUR ---
ADMIT REPORT HANDOFF RECEIVED FROM [facility] FLOOR RN MAG. PT ARRIVED TO FLOOR VIA GURNEY. PERSONAL POSSESSIONS WITH PT. COMPUTER BUILDER PUTTING IN PICC LINE AT THIS TIME. ANTIB RX DELAYED DUE TO NO IV LINE IN PLACE.
[2024-11-08] MEDS ORDERED: NS 250 ML IV PRN (19:45)
--- NOTE | 2024-11-08 19:51 | NUR ---
CALLED LAB LAB INFORMS ME THAT THIS PT HAS ALREADY BEEN SWABBED FOR COVID
[2024-11-08 20:05] VITALS: BP 127/74
--- NOTE | 2024-11-08 20:56 | NUR ---
CALLED PHARMACY PICC LINE NOT PLACE, PERIPHERAL PLACED. THEN IMMEDIATELY FOLLOWING THIS IV ACCESS ALSO FAILED. I DID INFORM PHARMACY. ANTIB RX NOT GIVEN DUE TO FAILURE TO OBTAIN IV ACCESS.
--- NOTE | 2024-11-09 00:17 | NUR ---
CALLED HOSPITALIST PT THRASHING AND CALLING OUT IN ROOM. REQUESTING ANXIETY MEDICATION. NEW ORDER IN EMAR.
[2024-11-09 00:18] LABS: Influenza A, PCR NEGATIVE (NEGATIVE); Influenza B, PCR NEGATIVE (NEGATIVE); Resp Syncytial Virus, PCR NEGATIVE (NEGATIVE); SARS-Cov-2 (COVID-19) PCR, MMC NEGATIVE (NEGATIVE)
--- NOTE | 2024-11-09 03:58 | NUR ---
SHIFT SUMMARY ADMITTED FOR PNEUMONIA. FULL CODE. RECENT ADMIT FOR SAME. IV ANTIB RX ARE SCHEDULED. ANXIETY MEDICATION GIVEN THIS SHIFT, ONE TIME ONLY DOSE. REGULAR DIET. A&O X4, INDEPENDENT IN ROOM. LIFE VEST IN PLACE. ON RA. 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 RESPIRATORY PANEL WAS NEGATIVE. POWERGLIDE IN PLACE RUE. HE IS ON ENTRESTO. HX OF POLYSUBSTANCE ABUSE.
[2024-11-09 05:35] VITALS: BP 114/65
[2024-11-09 06:28] LABS: Hematocrit 36.3 % (37.0-53.0); Hemoglobin 11.7 g/dL (13.5-17.5); Mean Corpuscular HGB Conc 32.2 g/dL (31.5-36.5); Mean Corpuscular Volume 91 fL (80-100); NRBC ABSOLUTE 0.03 K/mm3 (0.00-0.02); NRBC Auto 0.2 /100 WBC (0.0-0.2); Platelet Count 256 K/mm3 (150-400); RDW Coefficient Variation 17.1 % (11.7-14.2); RDW Standard Deviation 55.9 fL (35.1-46.3)
[2024-11-09 06:41] LABS: Alanine Aminotransfer (ALT/SGP 419.0 U/L (12-78); Albumin, Blood 2.4 g/dL (3.4-5.0); Albumin/Globulin Ratio 0.7 (0.8-1.8); Anion Gap 8.0 mmol/L (3-11); Aspartate Aminotrans (AST/SGOT 55.0 U/L (12-37); Bilirubin, Total 1.5 mg/dL (0.1-1.0); Blood Urea Nitrogen 22.0 mg/dL (8-24); CO2, Blood 26.0 mmol/L (21-32); Calcium, Blood 8.0 mg/dL (8.5-10.1); Chloride, Blood 104.0 mmol/L (98-108); Creatinine, Blood 1.2 mg/dL (0.60-1.20); Globulin, Blood 3.4 g/dL (2.2-4.0); Glucose, Blood 99.0 mg/dL (70-99); Potassium, Blood 4.2 mmol/L (3.5-5.5); Sodium, Blood 134.0 mmol/L (136-145); Total Protein, Blood 5.8 g/dL (6.4-8.2)
[2024-11-09 07:07] LABS: BAND PERCENT MAN 1 % (0-8); BASOPHILS ABSOLUTE MAN 0.00 K/mm3 (0.00-0.23); BASOPHILS PERCENT MAN 0 % (0-2); EOSINOPHILS ABSOLUTE MAN 0.19 K/mm3 (0.00-0.68); EOSINOPHILS PERCENT MAN 1 % (0-6); LYMPHOCYTES ABSOLUTE MAN 2.36 K/mm3 (0.84-5.20); LYMPHOCYTES PERCENT MAN 12 % (21-46); METAMYELOCYTE ABSOLUTE MAN 0.19 K/mm3 (0.00-0.00); METAMYELOCYTE PERCENT MAN 1 % (0-0); MONOCYTES ABSOLUTE MAN 1.97 K/mm3 (0.16-1.47); MONOCYTES PERCENT MAN 10 % (4-13); MYELOCYTE ABSOLUTE MAN 0.19 K/mm3 (0.00-0.00); MYELOCYTE PERCENT MAN 1 % (0-0); NEUTROPHILS ABSOLUTE MAN 14.80 K/mm3 (1.96-9.15); SEG NEUTROPHILS PERCENT MAN 74 % (41-73)
[2024-11-09 07:43] VITALS: BP 121/67
[2024-11-09] MEDS ORDERED: Torsemide 20 MG TAB PO SCH (09:00)
[2024-11-09] MEDS ORDERED: Enoxaparin 40 MG/0.4 ML SYR SC SCH (09:00)
--- NOTE | 2024-11-09 12:18 | NUR ---
PATIENT REFUSING TO WEAR LIFE VEST, REQUESTED TELE ORDER FROM DR DEGROOT. ORDER PLACED. PATIENT AWARE OF CONCERNS.
[2024-11-09 15:55] VITALS: BP 110/75
--- NOTE | 2024-11-09 18:45 | NUR ---
END OF SHIFT NOTE. PATIENT WAS IND IN ROOM TODAY. AMBULATED TO BATHROOM AND SHOWERED IND. SNACKS AND DRINKS PROVIDERED THROUGHOUT THE DAY. PATIENT REFUSED TO WEAR LIFE VEST AND STATED HE DOESNT EVEN KNOW HOW TO WORK IT AND WAS TIRED OF HEARING IT BEEP. VEST IS IN ROOM ON CHAIR. PATIENT COMPLIENT WITH TELE BOX AND IV MEDICATIONS TODAY. A&O X4. FAMILY AT BEDSIDE.
[2024-11-09 20:07] VITALS: BP 118/79
[2024-11-09 23:26] VITALS: BP 119/72
[2024-11-10] MEDS ORDERED: Ondansetron HCl 2 MG / ML 2ML Vial IV PRN (02:20)
[2024-11-10 04:41] VITALS: BP 116/76
--- NOTE | 2024-11-10 06:41 | NUR ---
SHIFT SUMMARY PT A&Ox4 AND PLEASANT. NO C/O PAIN. PT DID BECOME NAUSEOUS DURING THE NIGHT, CALLED AND ORDER GIVEN FOR ZOFRAN WITH GOOD EFFECT. PT DID REQUEST SNACKS OFTEN T/O THE NIGHT. CONTINUING IV ABX. NO EVENTS ON TELE, PT REMAIN SR IN THE 70's. VSS. BED IN LOWEST POSITION AND CALL LIGHT IN REACH.
[2024-11-10 07:30] VITALS: BP 125/83
[2024-11-10 07:39] LABS: BASOPHILS ABSOLUTE AUTO 0.07 K/mm3 (0.00-0.23); BASOPHILS PERCENT AUTO 0 % (0-2); EOSINOPHILS ABSOLUTE AUTO 0.65 K/mm3 (0.00-0.68); EOSINOPHILS PERCENT AUTO 4 % (0-6); Hematocrit 36.6 % (37.0-53.0); Hemoglobin 11.5 g/dL (13.5-17.5); IMMATURE GRAN ABSOLUTE AUTO 0.76 K/mm3 (0.00-0.10); IMMATURE GRAN PERCENT AUTO 5 % (0-1); LYMPHOCYTES ABSOLUTE AUTO 1.95 K/mm3 (0.84-5.20); LYMPHOCYTES PERCENT AUTO 12 % (21-46); MONOCYTES ABSOLUTE AUTO 1.22 K/mm3 (0.16-1.47); MONOCYTES PERCENT AUTO 7 % (4-13); Mean Corpuscular HGB Conc 31.4 g/dL (31.5-36.5); Mean Corpuscular Volume 92 fL (80-100); NEUTROPHILS ABSOLUTE AUTO 12.00 K/mm3 (1.96-9.15); NEUTROPHILS PERCENT AUTO 72 % (41-73); NRBC ABSOLUTE 0.00 K/mm3 (0.00-0.02); NRBC Auto 0.0 /100 WBC (0.0-0.2); Platelet Count 228 K/mm3 (150-400); RDW Coefficient Variation 17.2 % (11.7-14.2); RDW Standard Deviation 57.3 fL (35.1-46.3)
[2024-11-10 07:59] LABS: Alanine Aminotransfer (ALT/SGP 348.0 U/L (12-78); Albumin, Blood 2.4 g/dL (3.4-5.0); Albumin/Globulin Ratio 0.6 (0.8-1.8); Anion Gap 8.0 mmol/L (3-11); Aspartate Aminotrans (AST/SGOT 53.0 U/L (12-37); Bilirubin, Total 1.0 mg/dL (0.1-1.0); Blood Urea Nitrogen 18.0 mg/dL (8-24); CO2, Blood 25.0 mmol/L (21-32); Calcium, Blood 7.9 mg/dL (8.5-10.1); Chloride, Blood 106.0 mmol/L (98-108); Creatinine, Blood 1.19 mg/dL (0.60-1.20); Globulin, Blood 3.7 g/dL (2.2-4.0); Glucose, Blood 117.0 mg/dL (70-99); Potassium, Blood 4.3 mmol/L (3.5-5.5); Sodium, Blood 135.0 mmol/L (136-145); Total Protein, Blood 6.1 g/dL (6.4-8.2)
[2024-11-10 12:07] VITALS: BP 122/77
[2024-11-10 16:10] VITALS: BP 114/77
--- NOTE | 2024-11-10 19:10 | NUR ---
SHIFT SUMMARY PT A&OX4. PT ADMITTED DUE TO COMMUNITY ACQUIRED PNEUMONIA. PT INDEPENDENT IN ROOM. VSS. PT HAS COUGH. PT HAS LIFE VEST IN ROOM. PT ENCOURAGED TO WEAR IT. PT REFUSES TO WEAR. REPORTED TO DR. MORFIN. PT ON TELE, NO TELE REPORTS. PT REPORTS NO CHEST PAIN/GEN PAIN. PT REPORTS SOME SOB AT TIMES. PT ON ROOM AIR. THIS AM PT FOUND PRODUCING EMESIS. EMESIS BAG AT BEDSIDE. ZOFRAN GIVEN. PT IN BED, BED IN LOWEST POSITION, CALL LIGHT IN REACH. PT GETTING IV ANTIBIOTICS.
[2024-11-10 19:25] VITALS: BP 109/75
[2024-11-10] MEDS ORDERED: Lactobacil 2-S.Thermo-Bifido 1 1 Cap PO SCH (21:00)
[2024-11-10 23:59] VITALS: BP 108/73
[2024-11-11] VITALS (7 sets, daily range): BP systolic 94–121; BP diastolic 64–85
--- NOTE | 2024-11-11 05:48 | NUR ---
SHIFT SUMMARY NOC PT A/O X 4. PLEASASNT AND COOPERATIVE WITH CARE. VSS. NO ACUTE CHANGES TO REPORT. PT ON TELE SINUS/BBB IN 80'S. PT STILL REFUSING TO WEAR CARDAC LIFEVEST DEFIBRILATOR. POWERGLIDE IN ANA INFUSING PER EMAR. PT HAS NOT HAD C/O OF NAUSEAU AND HAS SLEPT MAJORITY OF SHIFT. PT DOES NOT WANT TO TAKE 0600 MEDS SCHEDULED AND WANTS TO WAIT UNTIL 7.PT CURRENTLY RESTING WITN BED IN LOWEST POSITION, AND CALL LIGHT WITHIN REACH.
[2024-11-11 07:40] LABS: BASOPHILS ABSOLUTE AUTO 0.04 K/mm3 (0.00-0.23); BASOPHILS PERCENT AUTO 0 % (0-2); EOSINOPHILS ABSOLUTE AUTO 0.52 K/mm3 (0.00-0.68); EOSINOPHILS PERCENT AUTO 4 % (0-6); Hematocrit 38.5 % (37.0-53.0); Hemoglobin 12.0 g/dL (13.5-17.5); IMMATURE GRAN ABSOLUTE AUTO 0.41 K/mm3 (0.00-0.10); IMMATURE GRAN PERCENT AUTO 3 % (0-1); LYMPHOCYTES ABSOLUTE AUTO 1.84 K/mm3 (0.84-5.20); LYMPHOCYTES PERCENT AUTO 13 % (21-46); MONOCYTES ABSOLUTE AUTO 1.30 K/mm3 (0.16-1.47); MONOCYTES PERCENT AUTO 9 % (4-13); Mean Corpuscular HGB Conc 31.2 g/dL (31.5-36.5); Mean Corpuscular Volume 91 fL (80-100); NEUTROPHILS ABSOLUTE AUTO 9.99 K/mm3 (1.96-9.15); NEUTROPHILS PERCENT AUTO 71 % (41-73); NRBC ABSOLUTE 0.00 K/mm3 (0.00-0.02); NRBC Auto 0.0 /100 WBC (0.0-0.2); Platelet Count 235 K/mm3 (150-400); RDW Coefficient Variation 17.2 % (11.7-14.2); RDW Standard Deviation 56.2 fL (35.1-46.3)
[2024-11-11 07:58] LABS: Anion Gap 9.0 mmol/L (3-11); Blood Urea Nitrogen 13.0 mg/dL (8-24); CO2, Blood 25.0 mmol/L (21-32); Calcium, Blood 8.0 mg/dL (8.5-10.1); Chloride, Blood 105.0 mmol/L (98-108); Creatinine, Blood 1.25 mg/dL (0.60-1.20); Glucose, Blood 88.0 mg/dL (70-99); Potassium, Blood 4.3 mmol/L (3.5-5.5); Sodium, Blood 135.0 mmol/L (136-145)
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
[2024-11-11] MEDS ORDERED: Oxymetazoline 0.05% Nasal Relief Spray 15mL BTL ONE (13:20)
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
[2024-11-12 04:22] VITALS: BP 114/78
--- NOTE | 2024-11-12 06:06 | NUR ---
SHIFT SUMMARY: Pt is admitted for PNA and is a full code. Is alert and able to make needs known. ADLs have been IND. denies pain or discomfort when asked. Power glide to right upper is patent with dressing that is CDI. trae noted sinus in the 70s with a bundle branch.
[2024-11-12 07:13] VITALS: BP 123/79
[2024-11-12 09:50] LABS: BASOPHILS ABSOLUTE AUTO 0.04 K/mm3 (0.00-0.23); BASOPHILS PERCENT AUTO 0 % (0-2); EOSINOPHILS ABSOLUTE AUTO 0.45 K/mm3 (0.00-0.68); EOSINOPHILS PERCENT AUTO 4 % (0-6); Hematocrit 42.0 % (37.0-53.0); Hemoglobin 13.1 g/dL (13.5-17.5); IMMATURE GRAN ABSOLUTE AUTO 0.18 K/mm3 (0.00-0.10); IMMATURE GRAN PERCENT AUTO 2 % (0-1); LYMPHOCYTES ABSOLUTE AUTO 1.46 K/mm3 (0.84-5.20); LYMPHOCYTES PERCENT AUTO 12 % (21-46); MONOCYTES ABSOLUTE AUTO 0.74 K/mm3 (0.16-1.47); MONOCYTES PERCENT AUTO 6 % (4-13); Mean Corpuscular HGB Conc 31.2 g/dL (31.5-36.5); Mean Corpuscular Volume 92 fL (80-100); NEUTROPHILS ABSOLUTE AUTO 8.91 K/mm3 (1.96-9.15); NEUTROPHILS PERCENT AUTO 76 % (41-73); NRBC ABSOLUTE 0.00 K/mm3 (0.00-0.02); NRBC Auto 0.0 /100 WBC (0.0-0.2); Platelet Count 244 K/mm3 (150-400); RDW Coefficient Variation 17.0 % (11.7-14.2); RDW Standard Deviation 57.1 fL (35.1-46.3)
[2024-11-12 10:08] LABS: Anion Gap 9.0 mmol/L (3-11); Blood Urea Nitrogen 16.0 mg/dL (8-24); CO2, Blood 24.0 mmol/L (21-32); Calcium, Blood 8.0 mg/dL (8.5-10.1); Chloride, Blood 107.0 mmol/L (98-108); Creatinine, Blood 1.22 mg/dL (0.60-1.20); Glucose, Blood 129.0 mg/dL (70-99); Potassium, Blood 4.2 mmol/L (3.5-5.5); Sodium, Blood 136.0 mmol/L (136-145)
[2024-11-12 12:02] VITALS: BP 101/52
[2024-11-12] MEDS ORDERED: Oxymetazoline 0.05% Nasal Relief Spray 15mL BTL PRN (12:40)
[2024-11-12] MEDS ORDERED: AMOCLA875 PO (13:42)
[2024-11-12] MEDS ORDERED: ALBU90OI INH (13:42)
--- NOTE | 2024-11-12 14:30 | NUR ---
DISCHARGE 1413 PT AOX4, COOPERATIVE, ABLE TO MAKE NEEDS KNOWN. PT IS IND IN ROOM, FAMILY BEDSIDE ALL SHIFT. PT TOLERATING MEDICATIONS. ANA POWERGLIDE DC'D WITHOUT EVENT. THIS RN WENT OVER DC PAPERWORK WITH PT AND FAMILY. PT WAS TRANPORTED DOWN TO PT ENTRANCE BY FAMILY USING WC. ALL BELONGINGS WENT WITH PT.
== END 2024-11-12 14:17 | disposition home or self-care (01) | DRG 871 ==
LOC: ER 07:54 → MEDS 07:55
PROVIDERS: Physician Assistant; ADMIT Internal Medicine
PROC: 5A09357 Assistance with Respiratory Ventilation, Less than 24 Consecutive Hours, Continuous Positive Airway Pressure (ICD-10-PCS; principal; 2024-11-08)
PROC: 3E03329 Introduction of Other Anti-infective into Peripheral Vein, Percutaneous Approach (ICD-10-PCS; 2024-11-08)
DX: A41.9 Sepsis, unspecified organism (principal); J18.9 Pneumonia, unspecified organism; J96.01 Acute respiratory failure with hypoxia; I13.0 Hypertensive heart and chronic kidney disease with heart failure and stage 1 through stage 4 chronic kidney disease, or unspecified chronic kidney disease; J44.0 Chronic obstructive pulmonary disease with (acute) lower respiratory infection; I47.19 Other supraventricular tachycardia; I50.22 Chronic systolic (congestive) heart failure; R65.20 Severe sepsis without septic shock; G47.33 Obstructive sleep apnea (adult) (pediatric); I25.10 Atherosclerotic heart disease of native coronary artery without angina pectoris; F17.210 Nicotine dependence, cigarettes, uncomplicated; F15.10 Other stimulant abuse, uncomplicated; E66.9 Obesity, unspecified; F14.10 Cocaine abuse, uncomplicated; F32.A Depression, unspecified; N18.9 Chronic kidney disease, unspecified; R79.89 Other specified abnormal findings of blood chemistry; M54.50 Low back pain, unspecified; G89.29 Other chronic pain; Z86.73 Personal history of transient ischemic attack (TIA), and cerebral infarction without residual deficits; Z98.890 Other specified postprocedural states; Z79.82 Long term (current) use of aspirin; Z79.899 Other long term (current) drug therapy; Z95.5 Presence of coronary angioplasty implant and graft; Z68.32 Body mass index [BMI] 32.0-32.9, adult; Z71.6 Tobacco abuse counseling; Z86.79 Personal history of other diseases of the circulatory system
CPT/HCPCS: 71046; 80048; 80053; 83690; 83880; 84145; 85025; 87637; 93005; 93010; 96372-59; 96374; 96375; 99285-25; A9270; C1751; G0378; J1650; J1885; J1938; J2405; J2543; J7050